=== PATIENT | female | born 1950 | race Caucasian/White ===

== ENCOUNTER 2020-04-15 12:50 | Outpatient (REF) | payer MEDICARE, OTHER, SELFPAY ==
--- NOTE | 2020-04-15 12:56 | MM_ITS ---
EXAMINATION: MM SCREENING DIGITAL BREAST TOMOSYNTHESIS, BILATERAL CLINICAL INFORMATION: Screening. Asymptomatic. The lifetime risk of breast cancer based on the Tyrer-Cuzick Model is 10%. COMPARISON: Mammography: 02/03/2019, 01/01/2018 TECHNIQUE: Digital breast tomosynthesis is performed in both the craniocaudal and mediolateral oblique views along with computer-aided detection (CAD). Synthesized 2D images are generated from the tomosynthesis. FINDINGS: There are scattered areas of fibroglandular density (ACR BI-RADS breast composition Category b). There are no significant masses, abnormal calcifications, or other abnormalities. No developing density. The axilla and skin contours are unremarkable. MM/MM tomosynthesis screening BI IMPRESSION: No mammographic evidence of malignancy. ASSESSMENT: BI-RADS 1: Negative RECOMMENDATION: Routine annual mammography screening. This patient's information was entered into a reminder system with a target due date for their next mammogram.
== END 2020-04-15 12:51 | disposition home or self-care (01) ==
LOC: HO.MAMMO 12:50
PROVIDERS: Visit Provider Internal Medicine
DX: Z12.31 Encounter for screening mammogram for malignant neoplasm of breast (principal)
CPT/HCPCS: 77063; 77067

== ENCOUNTER 2020-04-23 09:08 | Outpatient (REF) | payer MEDICARE, OTHER, SELFPAY ==
--- NOTE | 2020-04-23 09:16 | XR_ITS ---
EXAMINATION: XR THORACOLUMBAR SPINE CLINICAL INFORMATION: Back pain. COMPARISON: Chest radiographs dated 12/15/2018. TECHNIQUE: 2 views of the thoracic spine were obtained. FINDINGS: Moderate to severe thoracic dextro scoliosis is seen with apex at T8-T9. Mild to moderate multilevel degenerative changes are seen. There is no acute fracture. The adjacent posterior ribs are intact. There is a moderate-sized hiatal hernia. XR/XR thoracic spine 2V IMPRESSION: 1. Moderate to severe thoracic dextro scoliosis and mild to moderate multilevel degenerative changes without acute abnormality. 2. Moderate hiatal hernia.
--- NOTE | 2020-04-23 09:16 | XR_ITS ---
EXAMINATION: XR CERVICAL SPINE CLINICAL INFORMATION: Neck pain. COMPARISON: Thoracic spine radiographs performed today. TECHNIQUE: 3 views of the cervical spine were obtained. FINDINGS: Mild compensatory cervical levoscoliosis is seen. There is normal cervical lordosis and spinal alignment. Moderate degenerative disc disease is seen at C6-C7 with disc space narrowing and marginal osteophyte formation. There is no acute fracture. Mild to moderate multilevel bilateral facet arthropathy is seen most pronounced at C3-C4 and C5-C6. There is no acute fracture. The prevertebral soft tissues are unremarkable. XR/XR cervical spine 2V IMPRESSION: 1. Mild compensatory cervical levoscoliosis scoliosis. 2. C6-C7 moderate degenerative disc disease and multilevel facet arthropathy.
== END 2020-04-23 09:09 | disposition home or self-care (01) ==
LOC: HO.XRAY 09:08
PROVIDERS: PCP Internal Medicine; Visit Provider Internal Medicine
DX: M54.9 Dorsalgia, unspecified (principal); G25.81 Restless legs syndrome; E66.9 Obesity, unspecified; Z68.39 Body mass index [BMI] 39.0-39.9, adult
CPT/HCPCS: 72040; 72070

== ENCOUNTER 2021-01-16 09:44 | Outpatient (REF) | payer MEDICARE, OTHER, SELFPAY ==
--- NOTE | ~2021-01-16 | XR_ITS ---
EXAMINATION: XR LUMBOSACRAL SPINE WITH OBLIQUES CLINICAL INFORMATION: Evaluate for response to localize cysts and fracture COMPARISON: Previous x-ray May 2017 and lumbar spine MRI November 2007 TECHNIQUE: AP, both oblique, and lateral views of the lumbar spine. Lateral view of the lumbosacral junction. FINDINGS: There is a severe lumbar scoliosis convex to the left. This is unchanged. No fracture or dislocation is seen. There is evidence of degenerative disc disease greatest at L2-L3 and L5-S1. There is lower lumbar spine facet arthritis. No pars defect is seen. The sacroiliac joints are normal-appearing. XR/XR lumbar spine 4V min IMPRESSION: Scoliosis, degenerative disc disease and facet arthritis. No fracture or pars defect is seen.
--- NOTE | ~2021-01-16 | XR_ITS ---
EXAMINATION: XR BILATERAL HIPS WITH AP PELVIS CLINICAL INFORMATION: Pain. Evaluate for arthritis or AVN or fracture. COMPARISON: None TECHNIQUE: AP view of the pelvis and 2 views of each hip were obtained. FINDINGS: Bone alignment is normal. No fracture or dislocation is seen. There is mild arthritis at both hip joints with joint space narrowing and osteophyte formation. No evidence of AVN of the femoral head is seen. Bones of the pelvis are normal. The sacroiliac joints are normal. Soft tissues are normal. XR/XR hip BI w PEL1V IMPRESSION: Bilateral hip arthritis. Otherwise unremarkable exam.
== END 2021-01-16 09:45 | disposition home or self-care (01) ==
LOC: HO.XRAY 09:44
PROVIDERS: PCP Internal Medicine; Visit Provider Physical Medicine & Rehabilitation
DX: M46.1 Sacroiliitis, not elsewhere classified (principal)
CPT/HCPCS: 72110; 73521

== ENCOUNTER 2021-04-22 10:52 | Outpatient (REF) | payer MEDICARE, OTHER, SELFPAY ==
--- NOTE | ~2021-04-22 | MM_ITS ---
EXAMINATION: MM SCREENING DIGITAL BREAST TOMOSYNTHESIS, BILATERAL CLINICAL INFORMATION: Screening. Asymptomatic. The lifetime risk of breast cancer based on the Tyrer-Cuzick Model is 5%. COMPARISON: Mammography: 04/15/2020, 02/03/2019, 01/01/2018 TECHNIQUE: Digital breast tomosynthesis is performed in both the craniocaudal and mediolateral oblique views along with computer-aided detection (CAD). Synthesized 2D images are generated from the tomosynthesis. FINDINGS: There are scattered areas of fibroglandular density (ACR BI-RADS breast composition Category b). There are no significant masses, abnormal calcifications, or other abnormalities. There is small smooth circumscribed nodule again noted mid upper outer right breast. The axilla and skin contours are unremarkable. No significant changes. MM/MM tomosynthesis screening BI IMPRESSION: No mammographic evidence of malignancy. ASSESSMENT: BI-RADS 2: Benign RECOMMENDATION: Routine annual mammography screening. This patient's information was entered into a reminder system with a target due date for their next mammogram.
== END 2021-04-22 10:53 | disposition home or self-care (01) ==
LOC: HO.MAMMO 10:52
PROVIDERS: Visit Provider Internal Medicine
DX: Z12.31 Encounter for screening mammogram for malignant neoplasm of breast (principal)
CPT/HCPCS: 77063; 77067

== ENCOUNTER 2021-05-01 09:03 | Outpatient (REF) | payer MEDICARE, OTHER, SELFPAY ==
--- NOTE | ~2021-05-01 | MM_ITS ---
EXAMINATION: BONE DENSITOMETRY CLINICAL INDICATION: Asymptomatic menopausal state. COMPARISON: Baseline BD dated 08/30/2008. TECHNIQUE: Using a [employer] DXA System (software version: 13.1) manufactured by [employer], dual-energy x-ray absorptiometry was performed of the lumbar spine and left hip. The images are of good technical quality. Summary results are attached. FINDINGS: AP SPINE L1-L2 (excluding L3 and L4): The data of L1-L4 has been changed to exclude the L3 and L4 vertebral bodies, because degenerative changes at these levels may cause overestimation of lumbar spine density. Levocurvature lumbar spine may also cause over estimation of the lumbar bone mineral density. Current: BMD 1.009 g/cm2, Z-score -0.8, T-score -1.3, osteopenia, 3.4% decrease from baseline (<5% change is not significant). Baseline: BMD 1.045 g/cm2. LEFT FEMUR, NECK: Current: BMD 0.716 g/cm2, Z-score -1.3, T-score -2.3, osteopenia. Baseline: BMD 0.894 g/cm2. LEFT FEMUR, TOTAL: Current: BMD 0.730 g/cm2, Z-score -1.5, T-score -2.2, osteopenia, 22.0% decrease from baseline (<5% change is not significant). Baseline: BMD 0.936 g/cm2. IDENTIFIED RISK FACTORS: Height loss, low calcium intake, menopause. HISTORY OF FRACTURE: None listed. MEDICATIONS: None listed. MM/XR DEXA axial skeleton IMPRESSION: 1. DIAGNOSIS: Osteopenia based on the lowest T-score value of -2.3 in the femoral neck applying World Health Organization criteria. 2. 10-YEAR FRACTURE RISK PREDICTION, FRAX: Major osteoporotic fracture (clinical spine, forearm, hip or shoulder) 11.9%. Hip fracture 2.7%. 3. Treatment Recommendations: NOF guidelines recommend consideration for treatment in postmenopausal women and men age 50 and older presenting with the following: -A hip or vertebral (clinical or morphometric) fracture. -T-score less than or equal to -2.5 at the femoral neck or spine after appropriate evaluation to exclude secondary causes. -Low bone mass at the hip or spine and a 10-year fracture probability by FRAX of greater than or equal to 3% for hip fracture or greater than or equal to 20% for major osteoporotic fracture based on the [place] adapted WHO algorithm. 4. Other Recommendations: All treatment decisions require clinical judgment and consideration of individual patient factors, including patient preferences, comorbidities, previous drug use, risk factors not captured in the FRAX model (e.g. frailty, falls, vitamin D deficiency, increased bone turnover, interval significant decline in bone density) and possible under or overestimation of fracture risk by FRAX. Additional medical evaluation for secondary cause of low bone mineral density may be appropriate. FUTURE SCAN RECOMMENDATION: People with diagnosed cases of osteoporosis or at high risk for fracture should have regular bone mineral density tests. For patients eligible for Medicare, routine testing is allowed once every 2 years. The testing frequency can be increased to one year for patients who have rapidly progressing disease, those who are receiving or discontinuing medical therapy to restore bone mass, or have additional risk factors.
== END 2021-05-01 09:04 | disposition home or self-care (01) ==
LOC: HO.MAMMO 09:03
PROVIDERS: Visit Provider Nurse Practitioner Family
DX: Z13.820 Encounter for screening for osteoporosis (principal); M85.80 Other specified disorders of bone density and structure, unspecified site; Z78.0 Asymptomatic menopausal state
CPT/HCPCS: 77080

== ENCOUNTER 2021-11-05 10:48 | Outpatient (REF) | payer MEDICARE, OTHER, SELFPAY ==
[2021-11-05 10:59] LABS: MANUAL DIFF FLAG NO
[2021-11-05 11:08] LABS: Basophils Absolute Auto 0.1 X10*3/uL (0.0-0.2); Basophils Percent Auto 0.9 % (0-2); Eosinophils Absolute Auto 0.2 X10*3/uL (0.0-0.4); Eosinophils Percent Auto 2.1 % (0-4); Hematocrit 38.1 % (37.0-47.0); Hemoglobin 12.2 g/dl (12.0-16.0); Imm Gran Abs Auto 0.04 X10*3/uL (0.00-0.03); Imm Gran Pct Auto 0.6 % (0.0-0.4); Lymphocytes Absolute Auto 2.3 X10*3/uL (1.2-4.9); Lymphocytes Percent Auto 32.3 % (20-40); Mean Corpuscular Hemoglobin 28.3 pg (27.0-33.0); Mean Corpuscular Volume 88.4 fL (80.0-98.0); Mean Platelet Volume 9.4 fL (9.4-12.3); Monocytes Absolute Auto 0.5 X10*3/uL (0.1-1.2); Monocytes Percent Auto 7.2 % (2-11); Neutrophils Percent Auto 56.9 % (45-73); Platelet Count 337 X10*3/uL (160-400); Red Blood Count 4.31 X10*6/uL (4.20-5.50); Red Cell Distribution Width 14.1 % (11.0-16.0)
[2021-11-05 11:39] LABS: Anion Gap 10 (12-20); Blood Urea Nitrogen 11 mg/dL (9-16); Carbon Dioxide 26 mmol/L (22-29); Chloride 109 mmol/L (96-108); Potassium 4.2 mmol/L (3.3-5.1); Sodium 141 mmol/L (135-145)
[2021-11-05 11:40] LABS: Alanine Aminotransferase 22 U/L (0-31); Albumin Level 3.9 g/dL (3.5-5.0); Alkaline Phosphatase 125 U/L (39-117); Aspartate Amino Transferase 22 U/L (5-31); Bilirubin Total 0.7 mg/dL (0.0-1.0); Cholesterol 184 mg/dL; Estimated Glomerular Filt Rate > 60; Glucose Random 98 mg/dL (60-115); HDL Cholesterol 53 mg/dL; LDL Cholesterol Calculated 109 mg/dl; Total Protein 6.1 g/dL (6.5-8.0); Triglycerides 114 mg/dL
[2021-11-05 12:02] LABS: Folate 10.3 ng/mL (> or = 4.0); Free T4 (Free Thyroxine) 1.06 ng/dL (0.71-1.85); Thyroid Stimulating Hormone 1.67 uIU/mL (0.32-4.0); Vitamin B12 304 pg/mL (200-900); Vitamin D 25-OH Total 33.5 ng/mL (>30)
[2021-11-05 12:48] LABS: Estimated Average Glucose 111 mg/dL; Hemoglobin A1c % 5.5 %
== END 2021-11-05 10:49 | disposition home or self-care (01) ==
LOC: HO.LAB 10:48
PROVIDERS: PCP Internal Medicine; Visit Provider Internal Medicine
DX: I10 Essential (primary) hypertension (principal); E78.00 Pure hypercholesterolemia, unspecified
CPT/HCPCS: 36415; 80053; 80061; 82306; 82607; 82746; 83036; 84439; 84443; 85025

== ENCOUNTER 2022-04-24 09:45 | Outpatient (REF) | payer MEDICARE, OTHER, SELFPAY ==
--- NOTE | ~2022-04-24 | MM_ITS ---
EXAMINATION: MM SCREENING DIGITAL BREAST TOMOSYNTHESIS, BILATERAL CLINICAL INFORMATION: Screening. Asymptomatic. The lifetime risk of breast cancer based on the Tyrer-Cuzick Model is 4%. COMPARISON: Mammography: 04/22/2021, 04/15/2020, 02/03/2019 TECHNIQUE: Digital breast tomosynthesis is performed in both the craniocaudal and mediolateral oblique views along with computer-aided detection (CAD). Synthesized 2D images are generated from the tomosynthesis. FINDINGS: There are scattered areas of fibroglandular density (ACR BI-RADS breast composition Category b). There are no significant masses, abnormal calcifications, or other abnormalities. Parenchymal pattern is similar to prior studies. Again, small smooth circumscribed nodule is present right breast mid upper outer quadrant. The axilla and skin contours are unremarkable. No significant changes from prior exams. MM/MM tomosynthesis screening BI IMPRESSION: No mammographic evidence of malignancy. ASSESSMENT: BI-RADS 2: Benign RECOMMENDATION: Routine annual mammography screening. This patient's information was entered into a reminder system with a target due date for their next mammogram.
== END 2022-04-24 09:46 | disposition home or self-care (01) ==
LOC: HO.MAMMO 09:45
PROVIDERS: PCP Internal Medicine; Visit Provider Internal Medicine
DX: Z12.31 Encounter for screening mammogram for malignant neoplasm of breast (principal)
CPT/HCPCS: 77063; 77067

== ENCOUNTER → 2022-08-14 12:28 | Outpatient (BNVA) | payer MEDICARE, OTHER, SELFPAY | PROVIDERS: PCP Internal Medicine; Visit Provider Nurse Practitioner | DX: Z12.11 Encounter for screening for malignant neoplasm of colon (principal) | CPT/HCPCS: 99202 ==

== ENCOUNTER 2022-10-05 11:02 | Outpatient (REF) | payer MEDICARE, OTHER, SELFPAY ==
--- NOTE | ~2022-10-05 | XR_ITS ---
EXAMINATION: XR LUMBOSACRAL SPINE CLINICAL INFORMATION: Degenerative disc disease COMPARISON: Previous x-ray December 2020 TECHNIQUE: Three views of the lumbosacral spine. FINDINGS: There is severe curvature of the lumbar spine to the left. Bone alignment is otherwise normal. No fracture or dislocation. There is degenerative disc disease at L2-L3 and L3-L4. There is multilevel facet arthritis. There is atherosclerotic disease. There are degenerative changes of the left hip joint. XR/XR lumbar spine 2-3V IMPRESSION: Severe scoliosis. Multilevel degenerative changes.
== END 2022-10-05 11:03 | disposition home or self-care (01) ==
LOC: HO.XRAY 11:02
PROVIDERS: PCP Internal Medicine; Visit Provider Internal Medicine
DX: M51.36 Other intervertebral disc degeneration, lumbar region (principal)
CPT/HCPCS: 72100

== ENCOUNTER 2022-10-28 07:11 | Outpatient (REF) | payer MEDICARE, OTHER, SELFPAY ==
--- NOTE | ~2022-10-28 | XR_ITS ---
EXAMINATION: XR HIP, RIGHT CLINICAL INFORMATION: Chronic right hip pain COMPARISON: 01/16/2021 TECHNIQUE: Two views of the right hip. AP pelvis FINDINGS: Marked progression of right hip osteoarthritis with superolateral femoral head flattening, cysts with sclerosis, and osteophyte formation of the superior acetabulum. This may be the sequela of avascular necrosis with subchondral collapse. Relatively mild left hip osteoarthritis which does not appear significantly changed. XR/XR hip RT w PEL1V IMPRESSION: Marked progression of the right hip osteoarthritis, possibly the sequela of avascular necrosis with subchondral collapse.
== END 2022-10-28 07:12 | disposition home or self-care (01) ==
LOC: HO.LAB 07:11
PROVIDERS: PCP Internal Medicine; Visit Provider Internal Medicine
DX: E78.00 Pure hypercholesterolemia, unspecified (principal); M70.61 Trochanteric bursitis, right hip
CPT/HCPCS: 36415; 73502; 82607; 82746; 85025

== ENCOUNTER 2022-11-04 09:34 | Outpatient (REF) | payer MEDICARE, OTHER, SELFPAY ==
[2022-11-04 11:40] LABS: Alanine Aminotransferase 49 U/L (0-31); Albumin Level 3.9 g/dL (3.5-5.0); Alkaline Phosphatase 128 U/L (39-117); Anion Gap 15 (12-20); Aspartate Amino Transferase 50 U/L (5-31); Bilirubin Total 0.7 mg/dL (0.0-1.0); Blood Urea Nitrogen 10 mg/dL (9-16); Calcium 10.2 mg/dL (8.4-10.2); Carbon Dioxide 26 mmol/L (22-29); Chloride 106 mmol/L (96-108); Cholesterol 173 mg/dL; Estimated Glomerular Filt Rate > 60; Glucose Random 96 mg/dL (60-115); HDL Cholesterol 54 mg/dL; LDL Cholesterol Calculated 95 mg/dl; Sodium 143 mmol/L (135-145); Total Protein 6.6 g/dL (6.5-8.0); Triglycerides 122 mg/dL
[2022-11-04 11:44] LABS: Free T4 (Free Thyroxine) 1.04 ng/dL (0.71-1.85); Thyroid Stimulating Hormone 1.62 uIU/mL (0.32-4.0); Vitamin D 25-OH Total 41.7 ng/mL (>30)
== END 2022-11-04 09:35 | disposition home or self-care (01) ==
LOC: HO.LAB 09:34
PROVIDERS: PCP Internal Medicine; Visit Provider Internal Medicine
DX: E78.00 Pure hypercholesterolemia, unspecified (principal); E55.9 Vitamin D deficiency, unspecified; M85.80 Other specified disorders of bone density and structure, unspecified site
CPT/HCPCS: 36415; 80053; 80061; 82306; 84439; 84443

== ENCOUNTER 2022-11-13 10:09 | Outpatient (REF) | payer MEDICARE, OTHER, SELFPAY ==
--- NOTE | ~2022-11-13 | US_ITS ---
EXAMINATION: US ABDOMEN COMPLETE CLINICAL INFORMATION: Other specified abnormal findings of blood chemistry. COMPARISON: Ultrasound abdomen 12/26/2014. TECHNIQUE: Real-time imaging of the abdominal viscera. Technically difficult study secondary to bowel gas and body habitus. FINDINGS: PANCREAS: Limited visualization of pancreatic tail and head. Imaged portion of pancreatic body is unremarkable. ABDOMINAL AORTA: Limited visualization. Imaged portion of mid abdominal aorta is nonaneurysmal. INFERIOR VENA CAVA: Visualized portions are normal. LIVER: Heterogeneous hepatic echotexture, possibly reflecting hepatocellular disease. Borderline mild increase in echogenicity of the liver is characteristic of primary hepatocellular disease, possibly due to hepatic steatosis and further limits visualization. Previous exam of 2014 reported increase in hepatic echotexture characteristic of fatty infiltration or hepatocellular disease. Limited visualization. GALLBLADDER: 1.1 x 0.5 x 0.8 cm gallstone. No gallbladder wall thickening or pericholecystic fluid. COMMON BILE DUCT: Normal in caliber measuring 0.3 cm in diameter. RIGHT KIDNEY: No hydronephrosis. No renal calculi. Limited visualization. The kidney measures 9.3 cm in maximum dimension. LEFT KIDNEY: No hydronephrosis. No renal calculi. Limited visualization. The kidney measures 9.5 cm in maximum dimension. SPLEEN: The spleen measures 13.3 cm in maximum dimension. Borderline enlarged pancreas. FREE FLUID: None. US/US abdomen complete IMPRESSION: 1. Heterogeneous hepatic echotexture, possibly reflecting hepatocellular disease. Borderline mild increase in echogenicity of the liver is characteristic of primary hepatocellular disease, possibly due to hepatic steatosis and further limits visualization. Previous exam of 2014 reported increased hepatic echotexture characteristic of fatty infiltration or hepatocellular disease. 2. Cholelithiasis. 3. Spleen measures 13.3 cm. Borderline enlarged. Limited visualization. 4. CT scan could be considered for further evaluation.
== END 2022-11-13 10:10 | disposition home or self-care (01) ==
LOC: HO.US 10:09
PROVIDERS: PCP Internal Medicine; Visit Provider Internal Medicine
DX: R79.89 Other specified abnormal findings of blood chemistry (principal)
CPT/HCPCS: 76700

== ENCOUNTER 2022-11-26 14:00 | Outpatient (RCR) | payer MEDICARE, OTHER, SELFPAY ==
--- NOTE | 2022-10-21 14:00 | MHC.PT.EP ---
[facility] [place] Office [place] Office [place] Office [address] Williams Delgadillo [address] [phone] F: [phone] F: [phone] F: [phone] F: [phone] Physical Therapy Plan of Care Date of Evaluation: Date of Surgery: N/A Diagnosis: Other intervertebral disc degeneration, lumbar region Lumbar degenerative disc disease Assessment: Pt is a pleasant 72yo F who presents to PT with back pain. She presents to PT with current impairments in pain, decreased lumbar ROM, decreased hip ROM, decreased hip/glute strength, decreased core stabilization, soft tissue restrictions, impaired posture and impaired gait. She is limited functionally by prolonged sitting, standing/weight bearing, prolonged standing (>1 minute), walking, stair navigation (descending is worse), sleeping, and bending. She is an excellent candidate for skilled PT in order to address current impairments to facilitate return to PLOF. She is recommended to be seen 2x/week for 4 weeks and will be reassessed at that time. 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 Manual therapy to restore motion and function. Therapeutic exercise to improve strength and flexibility. Neuromuscular re-education for posture and balance. Therapeutic activities to return to functional activities of daily living. Electronically signed by: Nicole Clement, PT, DPT Please sign and return to therapist. Thank you for your referral.
--- NOTE | 2022-12-11 14:36 | MHC.PT.DC ---
[facility] [place] Office [place] Office [place] Office [address] Williams Delgadillo [address] [phone] F: [phone] F: [phone] F: [phone] F: [phone] Physical Therapy Discharge Report Diagnosis: Other intervertebral disc degeneration, lumbar region Lumbar degenerative disc disease Date of Surgery: N/A Date of Evaluation: 10/21/22 Date of Discharge: 12/11/22 Treatments to Date: 9 Cancellations to Date: No Shows to Date: Discharge Status: Independent with HEP Recommend MD Follow-up Discharge Summary: Pt was seen for skilled PT from 10/21/22-11/26/22. Her last attended and scheduled appointment was 11/26/22. She had achieved some pain relief with skilled PT however she continued to have pain and impaired posture due to severe scolisosis, OA, and R hip OA. She reports she had lumbar MRI scheduled and an appointment scheduled with spine surgeon. She was recommended to follow up with scheduled providers. Pt is being D/C from skilled PT at this time. Electronically signed by: Nicole Clement, PT, DPT Please sign and return to therapist. Thank you for your referral.
== END 2022-12-11 14:35 | disposition home or self-care (01) ==
LOC: HO.PT 14:00
PROVIDERS: PCP Internal Medicine; Visit Provider Internal Medicine
DX: M51.36 Other intervertebral disc degeneration, lumbar region (principal)
CPT/HCPCS: 97014; 97110; 97140; 97162

== ENCOUNTER 2022-12-02 09:16 | Outpatient (REF) | payer MEDICARE, OTHER, SELFPAY ==
--- NOTE | ~2022-12-02 | MR_ITS ---
EXAMINATION: MR LUMBAR SPINE WITHOUT CONTRAST CLINICAL INFORMATION: Other intervertebral disc degeneration, lumbar region. COMPARISON: Lumbar spine MRI 11/30/2007. TECHNIQUE: MRI of the lumbar spine was obtained using routine sequences without contrast. FINDINGS: There is progressive severe levoscoliotic curvature centered at the L1-L2 level. There is asymmetric right-sided disc height loss at L2-L3 and L3-L4. No bone marrow edema is seen. The distal spinal cord appears normal. The conus medullaris terminates normally at the L1-L2 level. There is fatty atrophy of the posterior paraspinal musculature. The extraspinal soft tissues are otherwise unremarkable. SPINAL LEVELS: L1-L2: Mild disc bulging with asymmetric right facet arthropathy. No spinal canal or neural foraminal stenosis. L2-L3: Disc bulging with facet arthropathy. No spinal canal stenosis. Minimal narrowing of the right subarticular zone. No significant neural foraminal stenosis. L3-L4: Disc bulging with ligamentum flavum infolding and severe right more than left facet arthropathy resulting in severe spinal canal stenosis with compression of the thecal sac. Severe right neural foraminal stenosis with compression of the exiting right L3 nerve root. Bulging disc also compresses the extraforaminal left L3 nerve root. Findings have progressed. L4-L5: Disc bulging with moderate to severe facet arthropathy resulting in left subarticular stenosis with compression of the traversing left L5 nerve root, new from prior. No significant spinal canal stenosis. Moderate left neural foraminal stenosis. L5-S1: Disc bulging with moderate facet arthropathy. Moderate left neural foraminal stenosis with mild compression of the exiting left L5 nerve root, prior. MR/MR lumbar spine wo con IMPRESSION: 1. Progressive severe levoscoliotic curvature centered at the L1-L2 level. 2. At L3-L4 there is progressive severe spinal canal stenosis with compression of the thecal sac and compression of the exiting right L3 nerve root. Bulging disc also compresses the extraforaminal left L3 nerve root. 3. At L4-L5 there is new compression of the traversing left L5 nerve root and moderate left neural foraminal stenosis. 4. At L5-S1 there is moderate left neural foraminal stenosis with mild compression of the exiting left L5 nerve root.
== END 2022-12-02 09:17 | disposition home or self-care (01) ==
LOC: HO.MRI 09:16
PROVIDERS: PCP Internal Medicine; Visit Provider Internal Medicine
DX: M51.36 Other intervertebral disc degeneration, lumbar region (principal)
CPT/HCPCS: 72148

== ENCOUNTER 2022-12-16 10:16 | Outpatient (REF) | payer MEDICARE, OTHER, SELFPAY ==
[2022-12-16 12:03] LABS: Alanine Aminotransferase 9 U/L (0-31); Alkaline Phosphatase 105 U/L (39-117); Aspartate Amino Transferase 17 U/L (5-31); Bilirubin Direct 0.3 mg/dL (0.0-0.5); Bilirubin Total 0.6 mg/dL (0.0-1.0); Iron 42 mcg/dL (30-160); Percent Iron Saturation 18 % (15-50); Total Iron Binding Capacity 240 mcg/dL (228-428); Total Protein 6.7 g/dL (6.5-8.0); Unsaturated Iron Binding 198 ug/dL
[2022-12-16 12:19] LABS: HBS Num1 0.26 mIU/mL (0-7.99); HBc Num1 0.09 S/CO (0.00-0.79); HBsAGNum1 0.36 S/CO (0.00-0.99); Hepatitis B Core Antibody Nonreactive (Nonreactive); Hepatitis B Surface Antigen Negative (Negative); ~HepC Num1 0.07 S/CO (0.00-0.79); ~Hepatitis B Surface Antibody NONREACTIVE (Nonreactive); ~Hepatitis C Antibody Nonreactive (Nonreactive)
[2022-12-16 12:28] LABS: Ferritin 98 ng/mL (10-250)
[2022-12-22 09:09] LABS: Prot Elec - Albumin 3.7 g/dL (3.8-4.8); Prot Elec - Alpha1 0.4 g/dL (0.2-0.3); Prot Elec - Alpha2 0.7 g/dL (0.5-0.9); Prot Elec - Beta 1 0.4 g/dL (0.4-0.6); Prot Elec - Beta 2 0.4 g/dL (0.2-0.5); Prot Elec - Gamma 0.8 g/dL (0.8-1.7); Prot Elec - Total Protein 6.3 g/dL (6.1-8.1)
== END 2022-12-16 10:17 | disposition home or self-care (01) ==
LOC: HO.LAB 10:16
PROVIDERS: PCP Internal Medicine; Visit Provider Internal Medicine
DX: R79.89 Other specified abnormal findings of blood chemistry (principal)
CPT/HCPCS: 36415; 80076; 82728; 83540; 84165; 86704; 86706; 86803; 87340

== ENCOUNTER 2022-12-18 09:57 | Outpatient (AMB) | payer MEDICARE, OTHER, SELFPAY ==
--- NOTE | 2022-12-18 10:23 | HO.SPINEOV ---
Intake Intake Visit Reasons: disc degeneration Intake Note: Ms. Wolfe is here today c/o low back pain. [place] [facility] [place] Computer Network Support Specialist Required: No Allergies clarithromycin Allergy (Unknown, Verified 10/22/22 09:42) nausea Assessment & Plan Assessment & Plan (1) Lumbar degenerative disc disease: Comment: May 2021, November 2022 Progressive severe levoscoliotic curvature centered at the L1-L2 level. 2. At L3-L4 there is progressive severe spinal canal stenosis with compression of the thecal sac and compression of the exiting right L3 nerve root. Bulging disc also compresses the extraforaminal left L3 nerve root. 3. At L4-L5 there is new compression of the traversing left L5 nerve root and moderate left neural foraminal stenosis. 4. At L5-S1 there is moderate left neural foraminal stenosis with mild compression of the exiting left L5 nerve root. Code(s): M51.36 - Other intervertebral disc degeneration, lumbar region Sandip Villa is a 72-year-old female who is self-referred to our office. She presents with a chief complaint of chronic low back pain which is have the past 20+ years. She states that she has concurrent right thigh/groin pain which she believes may be correlated to her right hip which needs to be replaced. She is being followed by [facility] for this issue. She reports that she was diagnosed with scoliosis at 12 years old and never used utilized a brace or other forms of scoliotic correction. She reports that she has tried utilizing tramadol, Advil, Celebrex, Tylenol, ice, rest, heat, Salonpas, cortisone injections, and physical therapy to help alleviate her symptoms without avail. She reports that standing upright and walking for prolonged periods of time exacerbates her pain. She states that she is here more so for her low back pain than her pain in the hip/right groin. She recently had an MRI completed here at [place] on 12/02/2022. PMH: Osteopenia, high blood pressure, hyperlipidemia, GERD, scoliosis, osteoarthritis. Social hx: Patient does not smoke, reports no substance use. Medications: Atenolol, simvastatin, losartan, gabapentin, celecoxib. Allergies: NKDA. Physical exam: Sensation: Grossly intact CN: II-XII grossly intact. Strength Testing Upper Extremities: - Deltoid 5/5 right 5/5 left - Biceps 5/5 right 5/5 left - Triceps 5/5 right 5/5 left - Wrist Ext 5/5 right 5/5 left - Wrist Flex 5/5 right 5/5 left - Hand wallpaper inspector 5/5 right 5/5 left - Interossei 5/5 right 5/5 left Strength Testing Lower Extremities: - Hip flexion 4/5 right 5/5 left - Knee extension 4/5 right 5/5 left - Dorsiflexion 5/5 right 5/5 left - Plantar flex 5/5 right 5/5 left - EHL 5/5 right 5/5 left Pain limited due to weakness Reflexes: - Biceps (C5/C6) Right - 2+ Left - 2+ - Triceps (C7) Right - 2+ Left - 2+ - Patellar (L2-L4) Right - 1+ Left - 2+ - Achilles (S1) Right - 1+ Left - 2+ - Plantar (BELLOWS TESTER) Right - 1+ Left - 2+ (-) Babinski (-) Castillo?s sign (-) Clonus Imaging review: MRI of lumbar spine shows severe scoliosis centered at L1/L2. L4-S1 moderate L sided foraminal stenosis. Severe central canal stenosis at L3-4 with a bulging disc compressing the right and left L3 nerve root. Impression: The patient is a 72-year-old female who comes in with a chief complaint of longstanding chronic low back pain. She also endorses some nonspecific right thigh symptoms that she thinks may be correlated with her need for a right hip replacement. This is a patient who has a problem that is multifaceted; she has severe scoliosis, severe spinal stenosis, and significant disc compression issues at the levels of L3-4. She has had a history of some kind of injections at [facility] the past. We would like to obtain records from [facility] and [facility] of all the injections she has had done as there were some reports of injections performed in [place] as well which they will hopefully have record of. In the meantime would also like the patient to have a CT scan completed without contrast to get a better look at her bone quality and assess the level of fusion that is already taking place in the lumbar spine. We additionally would like the patient to complete flexion extension x-rays to check for any further instability when the patient is standing. She may be seen back in the office for follow-up with Dr. Chau to discuss surgical possibilities. MATTHEW Montemayor and I had discussed the possibility for and L3-4 fusion to correct her scoliosis, provide back pain relief, and address her bulging disc. The total time spent with this visit with this patient was 60 minutes reviewing history, physical exam, MRI imaging review, and implementation of treatment plan or further diagnostic testing. Mo Chau MD,PhD [facility] Orders: Orders XR lumbar spine 4V min Today M51.36 - Other intervertebral disc degeneration, lumbar region CT lumbar spine wo IV con Today M51.36 - Other intervertebral disc degeneration, lumbar region Coding Level of Care Code New Pt Level 5 (44413) Diagnoses Lumbar degenerative disc disease M51.36
== END 2022-12-18 11:22 | disposition home or self-care (01) ==
PROVIDERS: PCP Internal Medicine; Visit Provider Physician Assistant
DX: M51.36 Other intervertebral disc degeneration, lumbar region (principal)
CPT/HCPCS: 99205

== ENCOUNTER 2022-12-18 09:57 | Outpatient (REF) | payer MEDICARE, OTHER, SELFPAY ==
--- NOTE | ~2022-12-18 | XR_ITS ---
EXAMINATION: XR LUMBOSACRAL SPINE WITH OBLIQUES CLINICAL INFORMATION: Disc degeneration COMPARISON: Radiographs 10/05/2022 TECHNIQUE: AP, lateral, and lateral flexion and extension views of the lumbar spine FINDINGS: Marked levoconvex scoliosis. Multilevel degenerative disc disease most severe at L2-L3 and L3-L4 which is the apex of the curvature deformity. No acute osseous abnormality. No abnormal motion on the lateral flexion and extension. XR/XR lumbar spine 4V min IMPRESSION: Marked levoconvex scoliosis with multilevel degenerative disc disease. No acute osseous abnormality.
== END 2022-12-18 09:58 | disposition home or self-care (01) ==
LOC: HO.HOSX 09:57
PROVIDERS: PCP Internal Medicine; Visit Provider Physician Assistant
DX: M51.36 Other intervertebral disc degeneration, lumbar region (principal)
CPT/HCPCS: 72110; 99202

== ENCOUNTER 2022-12-25 10:17 | Outpatient (REF) | payer MEDICARE, OTHER, SELFPAY ==
--- NOTE | ~2022-12-25 | CT_ITS ---
EXAMINATION: CT LUMBAR SPINE WITHOUT CONTRAST CLINICAL INFORMATION: Degenerative disc disease COMPARISON: MRI lumbar spine 12/18/2022 TECHNIQUE: A multidetector CT acquisition of the lumbar spine is obtained without contrast. This CT examination was performed using dose optimization techniques as appropriate, variously including the following: *Automated exposure control *Adjustment of mA and/or kV according to patient size (this includes techniques or standardized protocols for targeted exams where dose is matched to indication/reason for exam; i.e. extremities or head) *Use of iterative reconstruction technique DLP: 837 mGy-cm FINDINGS: Normal lumbar segmentation with 5 nonrib-bearing lumbar-type vertebral bodies. The left L5 transverse process pseudoarticulates with the sacrum. Redemonstration of marked leftward curvature of the lumbar spine centered at L2-L3. There is trace right lateral listhesis of L1 on L2 and left lateral listhesis of L3 on L4. No significant spondylolisthesis. Vertebral body heights are maintained. There is no suspicious osseous lesion. Multilevel disc space height loss with asymmetric loss of the right disc space at L3-L4 with vacuum disc phenomenon. Degenerative canal and neural foraminal stenosis is better assessed on recent MRI of the lumbar spine from 12/18/2022 and not significantly progressed within the limitations of CT. There is mild fatty atrophy of the paraspinal musculature. Cholelithiasis is noted. No other significant abnormality of the visualized intra-abdominal structures. There is moderate aortoiliac calcified atherosclerotic disease. The abdominal aorta is of normal contour and caliber. CT/CT lumbar spine wo IV con IMPRESSION: 1. Redemonstration of marked leftward curvature of the lumbar spine centered at L2-L3. 2. Acute osseous abnormality of the lumbar spine. Multilevel lumbar spondylosis is better assessed on recent MRI of the lumbar spine from 12/18/2022 and not significantly progressed within the limitations of CT. 3. Cholelithiasis
== END 2022-12-25 10:18 | disposition home or self-care (01) ==
LOC: HO.CT 10:17
PROVIDERS: PCP Internal Medicine; Visit Provider Physician Assistant
DX: M51.36 Other intervertebral disc degeneration, lumbar region (principal)
CPT/HCPCS: 72131

== ENCOUNTER 2023-01-13 14:56 | Outpatient (AMB) | payer MEDICARE, OTHER, SELFPAY ==
--- NOTE | 2023-01-13 15:04 | A.SPINEOV_ITS ---
Intake Intake Visit Reasons: CT follow up Intake Note: Ms. Wolfe is here today to discuss results of her CT Scan. 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 2. At L3-L4 there is progressive severe spinal canal stenosis with compression of the thecal sac and compression of the exiting right L3 nerve root. Bulging disc also compresses the extraforaminal left L3 nerve root. 3. At L4-L5 there is new compression of the traversing left L5 nerve root and moderate left neural foraminal stenosis. 4. At L5-S1 there is moderate left neural foraminal stenosis with mild compression of the exiting left L5 nerve root. Code(s): M51.36 - Other intervertebral disc degeneration, lumbar region Plan Daisy comes into the office today for her follow-up visit after having her CT scan and x-ray completed. Her images were reviewed with Dr. Chau, and we discussed her symptoms related to her imaging. Unfortunately Daisy bone is extremely osteopenic, which would make surgery very difficult. Not only that but it is unsure if you be able to adequately address her low back pain with a scoliosis correction surgery. The patient stated that she is going to be having her right hip replaced in the upcoming few months. She is encouraged to follow through with the surgery in to reach out to us if she has any new or worsening symptoms. She was also strongly encouraged to follow-up with her primary care physician to address her osteoporosis. Total amount of time spent in this visit was 20 minutes in discussion of symptoms, CT / X-ray imaging results and subsequent plan of care Mo Chau MD,PhD [facility] Coding Level of Care Code Est Pt Level 3 (03297) Diagnoses Lumbar degenerative disc disease M51.36
== END 2023-01-13 15:09 | disposition home or self-care (01) ==
PROVIDERS: PCP Internal Medicine; Visit Provider Neurological Surgery
DX: M51.36 Other intervertebral disc degeneration, lumbar region (principal)
CPT/HCPCS: 99213

== ENCOUNTER → 2023-01-13 14:56 | Outpatient (BNVA) | payer MEDICARE, OTHER, SELFPAY | PROVIDERS: PCP Internal Medicine; Visit Provider Neurological Surgery | DX: M51.36 Other intervertebral disc degeneration, lumbar region (principal) | CPT/HCPCS: 99212 ==

== ENCOUNTER 2023-01-20 09:24 | Outpatient (AMB) | payer MEDICARE, OTHER, SELFPAY ==
--- NOTE | 2023-01-20 09:34 | A.OFFVIS_ITS ---
Intake Vital Signs 01/20/23 09:45 Height 5 ft 3 in Weight 222 lb 10.67 oz BMI 39.4 BP 129/69 Blood Pressure Location Rt brachial Position Sitting Pulse 94 Intake Visit Reasons: Fatty liver/Cologuard results Intake Note: Patient presents to in office visit toda in follow up of cologuard and fatty liver. CC: Patient reports she just started on the Ozempic on 11/24/22 and she is a little constipated and nauseous. Service Cleaner Required: No Accompanied by: Self / Same As Patient Allergies clarithromycin Allergy (Unknown, Verified 01/20/23 09:48) nausea HPI Fatty liver/Cologuard results HPI Details Assessment & Plan (1) Screening for colon cancer: ?Code(s): Z12.11 - Encounter for screening for malignant neoplasm of colon ?Plan: She would prefer to do COloguard as she has no FHX and her past 2 scopes were negative. .? We watch the video explaining how to do it and she feels good that this is an option for her.? I let her know that if it is positive we will have to consider colonoscopy but if it is negative will repeat the test every 3 years. ROV 6 weeks. LABS: Laboratory Tests 10/28/22 11/04/22 11/04/22 07:20 09:48 09:48 WBC 8.8 Hgb 13.6 Hct 43.4 Plt Count 367 AST 50 H ALT 49 H Alkaline Phosphata se 128 H TSH 1.62 Free T4 1.04 Hep Bs Antigen Hep Bs Antibody Hep B Core Total A b Hepatitis C Ab (EI A) 12/16/22 12/16/22 10:43 10:43 WBC Hgb Hct Plt Count AST 17 ALT 9 Alkaline Phosphata se 105 TSH Free T4 Hep Bs Antigen Negative Hep Bs Antibody NONREACTIVE Hep B Core Total A b Nonreactive Hepatitis C Ab (EI A) Nonreactive THE COLOGUARD SCREEN WAS NEGATIVE US OF THE ABD 11/17/22 FINDINGS: PANCREAS: Limited visualization of pancreatic tail and head. Imaged portion of pancreatic body is unremarkable. ABDOMINAL AORTA: Limited visualization. Imaged portion of mid abdominal aorta is nonaneurysmal. INFERIOR VENA CAVA: Visualized portions are normal. LIVER: Heterogeneous hepatic echotexture, possibly reflecting hepatocellular disease. Borderline mild increase in echogenicity of the liver is characteristic of primary hepatocellular disease, possibly due to hepatic steatosis and further limits visualization. Previous exam of 2014 reported increase in hepatic echote xture characteristic of fatty infiltration or hepatocellular disease. Limited visualization. GALLBLADDER: 1.1 x 0.5 x 0.8 cm gallstone. No gallbladder wall thickening or pericholecystic fluid. COMMON BILE DUCT: Normal in caliber measuring 0.3 cm in diameter. RIGHT KIDNEY: No hydronephrosis. No renal calculi. Limited visualization. The kidney measures 9.3 cm in maximum dimension. LEFT KIDNEY: No hydronephrosis. No renal calculi. Limited visualization. The kidney measures 9.5 cm in maximum dimension. SPLEEN: The spleen measures 13.3 cm in maximum dimension. Borderline enlarged pancreas. FREE FLUID: None. US/US abdomen complete IMPRESSION: 1. Heterogeneous hepatic echotexture, po ssibly reflecting hepatocellular disease. Borderline mild increase in echogenicity of the liver is characteristic of primary hepatocellular disease, possibly due to hepatic steatosis and further limits visualization. Previous exam of 2014 reported increased hepatic echotext ure characteristic of fatty infiltration or hepatocellular disease. 2. Cholelithiasis. 3. Spleen measures 13.3 cm. Borderline e nlarged. Limited visualization. 4. CT scan could be considered for furth er evaluation. TODAY'S VISIT 72-year-old female referred to us in the past for colonoscopy screening now referred for new problem of elevated LFTs. She is referred by Julio Keen. It appears she had a mild elevation of her transaminases in October that resolved by the time the lab work was repeated in November. She had had no signs or symptoms of liver disease and no FHX of liver disease. The reason for the drop appears to be that she was started on Wegovy and has lost 23 lbs!! I will complete the work up to be sure that there are no other reversible factors; and she can then continue to follow with Dr. Keen since her LFT's have normalized with wt loss. ROV 4 phi weeks. [facility] Medical History (Updated 01/20/23 @ 13:37 by GUDELIA Potter) Screening for colon cancer Pre-op examination Morbid obesity with BMI of 45.0-49.9, adult Cough Screening for diabetes mellitus Upper back pain on left side Ulnar neuropathy Obesity (BMI 30-39.9) Restless leg syndrome GERD (gastroesophageal reflux disease) Hypercholesterolemia Hypertension Surgical History History of right knee joint replacement History of colonoscopy H/O shoulder replacement History of excision of mass History of left knee replacement History of right breast biopsy Family History Father No problems noted. Mother Medical history unknown Maternal Grandmother Breast cancer Paternal Grandmother Breast cancer Social History Housing: House Alcohol intake: never Patient Tobacco Use Status: Never used Tobacco e-Cigarette/Vaping Use: Never Used Second Hand Smoke Exposure: No Current occupational status: retired Cognitive needs: No Hearing needs: No Vision needs: Yes Review of Systems Const Denies fatigue, Denies fever(s), Denies night sweats, Denies poor appetite and Reports weight loss ENT Reports Normal hearing present, Denies dental pain, Denies dysphagia, Denies hearing loss, Denies mouth pain, Denies odynophagia, Denies throat swelling, Denies tongue swelling and Reports other (Dentition adequate) Card Reports no additional complaints Resp Reports no additional complaints GI Denies abdominal pain, Denies melena, Denies bloating, Denies hematochezia, Denies constipation, Denies GI cramping, Denies dysphagia, Denies excessive flatus, Denies early satiety, Reports heartburn, Denies diarrhea, Denies nausea, Denies odynophagia, Denies vomiting and Denies hematemesis Musc Reports back pain and Reports arthralgias Skin/Breast Denies pruritus, Denies lesions, Denies rash and Denies jaundice Neuro Reports Normal hearing present and Denies Abnormal speech present Endo Denies fatigue Aller/Immun Denies throat swelling and Denies tongue swelling Physical Exam Vital Signs: Last Vital Signs Pulse 94 01/20/23 09:45 BP 129/69 01/20/23 09:45 BMI result Body Mass Index 39.4 Const General: cooperative, no acute distress, well developed and well groomed Nutritional Appearance: well nourished and obese Orientation/consciousness: oriented to person, oriented to place and oriented to time Limitations: No language barrier and ambulation with walker HEENT Head: Yes normocephalic and Yes atraumatic Eyes General: appearance normal, both eyes and all related structures Pupils: Equal, round and reactive pupils present Neck Neck: Yes normal visual inspection and Yes no lymphadenopathy Thyroid: Thyroid normal Resp Effort & Inspection: normal respiratory effort and able to speak in complete sentences Auscultation: clear to auscultation bilaterally Cardio Rate: regular rate Rhythm: regular rhythm Heart sounds: Normal, physiologic split S2 sound present Peripheral pulses: radial pulses present and posterior tibial pulses present GI Inspection: No distended, Yes Abdominal panniculus present and Yes obesity Palpation (GI): Soft to palpation, nontender, no guarding, not rigid and No hepatosplenomegaly present Percussion: Yes normal to percussion Auscultation: normal bowel sounds Rectal Exam - Female: deferred Skin General skin exam: no rashes or lesions noted, turgor normal, skin not dry, no jaundice, No spider nevi and no striae Rashes: no rashes Nails: normal Neuro General: oriented to person, oriented to place and oriented to time Cranial nerves: Yes Equal, round and reactive pupils present and Yes Normal hearing present Speech: No Abnormal speech present Extrem General: Yes normal to inspection, No clubbing, No cyanosis and No edema Psych Appearance: grossly normal and well kempt Mental Status: mental status grossly normal Speech and movement: Normal speech and movement present Affect: normal affect Attitude: cooperative Thought process: Normal thought process present and not confabulating Thought content: Normal thought content present Insight: Fair insight present (Psych) Judgement: Fair judgement present (Psych) Results Reviewed Results Reviewed: 10/28/22 11/04/22 11/04/22 07:20 09:48 09:48 WBC 8.8 Hgb 13.6 Hct 43.4 Plt Count 367 AST 50 H ALT 49 H Alkaline Phosphatase 128 H TSH 1.62 Free T4 1.04 Hep Bs Antigen Hep Bs Antibody Hep B Core Total Ab Hepatitis C Ab (EIA) 12/16/22 12/16/22 10:43 10:43 WBC Hgb Hct Plt Count AST 17 ALT 9 Alkaline Phosphatase 105 TSH Free T4 Hep Bs Antigen Negative Hep Bs Antibody NONREACTIVE Hep B Core Total Ab Nonreactive Hepatitis C Ab (EIA) Nonreactive THE COLOGUARD SCREEN WAS NEGATIVE US OF THE ABD 11/17/22 FINDINGS: PANCREAS: Limited visualization of pancreatic tail and head. Imaged portion of pancreatic body is unremarkable. ABDOMINAL AORTA: Limited visualization. Imaged portion of mid abdominal aorta is nonaneurysmal. INFERIOR VENA CAVA: Visualized portions are normal. LIVER: Heterogeneous hepatic echotexture, possibly reflecting hepatocellular disease. Borderline mild increase in echogenicity of the liver is characteristic of primary hepatocellular disease, possibly due to hepatic steatosis and further limits visualization. Previous exam of 2014 reported increase in hepatic echotexture characteristic of fatty infiltration or hepatocellular disease. Limited visualization. GALLBLADDER: 1.1 x 0.5 x 0.8 cm gallstone. No gallbladder wall thickening or pericholecystic fluid. COMMON BILE DUCT: Normal in caliber measuring 0.3 cm in diameter. RIGHT KIDNEY: No hydronephrosis. No renal calculi. Limited visualization. The kidney measures 9.3 cm in maximum dimension. LEFT KIDNEY: No hydronephrosis. No renal calculi. Limited visualization. The kidney measures 9.5 cm in maximum dimension. SPLEEN: The spleen measures 13.3 cm in maximum dimension. Borderline enlarged pancreas. FREE FLUID: None. US/US abdomen complete IMPRESSION: 1. Heterogeneous hepatic echotexture, possibly reflecting hepatocellular disease. Borderline mild increase in echogenicity of the liver is characteristic of primary hepatocellular disease, possibly due to hepatic steatosis and further limits visualization. Previous exam of 2014 reported increased hepatic echotexture characteristic of fatty infiltration or hepatocellular disease. 2. Cholelithiasis. 3. Spleen measures 13.3 cm. Borderline enlarged. Limited visualization. 4. CT scan could be considered for further evaluation. Assessment & Plan Assessment & Plan (1) Fatty liver: Comment: BASELINE LABS 10/28/22 Plt Count 367 AST 50 H ALT 49 H Alkaline Phosphatase 128 H TSH 1.62 Free T4 1.04 12/16/22 AST 17 ALT 9 Alkaline Phosphatase 105 TSH Free T4 Hep Bs Antigen Negative Hep Bs Antibody NONREACTIVE Hep B Core Total Ab Nonreactive Hepatitis C Ab (EIA) NonreactiVE CURRENT LABS ULTRASOUND OF THE ABDOMEN 10/2022 IMPRESSION: 1. Heterogeneous hepatic echotexture, possibly reflecting hepatocellular disease. Borderline mild increase in echogenicity of the liver is characteristic of primary hepatocellular disease, possibly due to hepatic steatosis and further limits visualization. Previous exam of 2014 reported increased hepatic echotexture characteristic of fatty infiltration or hepatocellular disease. 2. Cholelithiasis. 3. Spleen measures 13.3 cm. Borderline enlarged. Limited visualization. 4. CT scan could be considered for further evaluation. Code(s): K76.0 - Fatty (change of) liver, not elsewhere classified Plan: 72-year-old female referred to us in the past for colonoscopy screening now referred for new problem of elevated LFTs. She is referred by Julio Keen. It appears she had a mild elevation of her transaminases in October that resolved by the time the lab work was repeated in November. She had had no signs or symptoms of liver disease and no FHX of liver disease. The reason for the drop appears to be that she was started on Wegovy and has lost 23 lbs!! I will complete the work up to be sure that there are no other reversible factors; and she can then continue to follow with Dr. Keen since her LFT's have normalized with wt loss. ROV 4 phi weeks. (2) LFT elevation: Code(s): R79.89 - Other specified abnormal findings of blood chemistry (3) Morbid obesity with BMI of 45.0-49.9, adult: Code(s): E66.01 - Morbid (severe) obesity due to excess calories; Z68.42 - Body mass index [BMI] 45.0-49.9, adult (4) Screening for colon cancer: Code(s): Z12.11 - Encounter for screening for malignant neoplasm of colon Orders: Orders Ferritin Today K76.0 - Fatty (change of) liver, not elsewhere classified, R79.89 - Other specified abnormal findings of blood chemistry HIV Ab/Ag Today K76.0 - Fatty (change of) liver, not elsewhere classified, R79.89 - Other specified abnormal findings of blood chemistry Alpha Fetoprotein Today K76.0 - Fatty (change of) liver, not elsewhere classified, R79.89 - Other specified abnormal findings of blood chemistry Mitochondrial Antibody Today K76.0 - Fatty (change of) liver, not elsewhere classified, R79.89 - Other specified abnormal findings of blood chemistry Smooth Muscle Antibody Today K76.0 - Fatty (change of) liver, not elsewhere classified, R79.89 - Other specified abnormal findings of blood chemistry BRIDGET Reflex Titer and Pattern Today K76.0 - Fatty (change of) liver, not elsewhere classified, R79.89 - Other specified abnormal findings of blood chemistry Gamma Glutamyl Transpeptidase Today K76.0 - Fatty (change of) liver, not elsewhere classified, R79.89 - Other specified abnormal findings of blood chemistry Coding Level of Care Code New Pt Level 3 (67212) Diagnoses Fatty liver K76.0 LFT elevation R79.89 Morbid obesity with BMI of 45.0-49.9, adult E66.01; Z68.42 Screening for colon cancer Z12.11
[2023-01-20 09:45] VITALS: BP 129/69; PULSE 94; BMI 39.4
== END 2023-01-20 10:14 | disposition home or self-care (01) ==
PROVIDERS: PCP Internal Medicine; Visit Provider Nurse Practitioner
DX: K76.0 Fatty (change of) liver, not elsewhere classified (principal); R79.89 Other specified abnormal findings of blood chemistry; E66.01 Morbid (severe) obesity due to excess calories; Z68.42 Body mass index [BMI] 45.0-49.9, adult; Z12.11 Encounter for screening for malignant neoplasm of colon
CPT/HCPCS: 99203

== ENCOUNTER 2023-01-20 09:24 | Outpatient (REF) | payer MEDICARE, OTHER, SELFPAY ==
[2023-01-20 11:54] LABS: Ferritin 95 ng/mL (10-250)
[2023-01-20 13:05] LABS: Gamma Glutamyl Transpeptidase 11 U/L (7-33)
[2023-01-21 04:42] LABS: HIV AB/AG Nonreactive (Nonreactive); HIV Num 1 0.06 S/CO (0.00-0.99)
[2023-01-22 12:44] LABS: Alpha Fetoprotein 2.4 ng/mL
[2023-01-24 23:39] LABS: Smooth Muscle Antibody <20 U (<20)
[2023-01-25 12:39] LABS: Mitochondrial Antibodies NEGATIVE (NEGATIVE)
[2023-01-26 08:34] LABS: Anti Nuclear Antibody Screen NEGATIVE (NEGATIVE)
== END 2023-01-20 09:25 | disposition home or self-care (01) ==
LOC: HO.LAB 09:24
PROVIDERS: PCP Internal Medicine; Visit Provider Nurse Practitioner
DX: K76.0 Fatty (change of) liver, not elsewhere classified (principal); R79.89 Other specified abnormal findings of blood chemistry; R94.5 Abnormal results of liver function studies; E66.01 Morbid (severe) obesity due to excess calories; Z68.42 Body mass index [BMI] 45.0-49.9, adult
CPT/HCPCS: 36415; 82105; 82728; 82977; 86015; 86038; 86381; 87389

== ENCOUNTER 2023-02-04 10:33 | Outpatient (AMB) | payer MEDICARE, OTHER, SELFPAY ==
[2023-02-04 10:50] VITALS: BP 130/68; PULSE 92; O2SAT 96; BMI 38.4
--- NOTE | 2023-02-04 10:50 | MHC.PC.OV ---
Vital Signs 02/04/23 10:50 Height 5 ft 3 in Weight 217 lb BMI 38.4 BP 130/68 Blood Pressure Location Lt brachial Position Sitting Pulse 92 Pulse Source Pulse Oximeter Pulse Oximetry (%) 96 Oxygen Delivery Method Room Air Intake Visit Reasons: 3 month f/u Allergies clarithromycin Allergy (Unknown, Verified 02/04/23 10:50) nausea Medication List - Last Reconciled 02/04/23 by Julio Keen MD atenolol 25 mg PO BID celecoxib 50 mg PO BID gabapentin 300 mg PO BID lactobacillus combination no.4 (Probiotic) 3,000 mmu cells PO DAILY losartan 50 mg PO DAILY ropinirole 2 mg PO DAILY semaglutide 0.25 mg (0.368 mL) subcut QWEEK simvastatin 20 mg PO BEDTIME Tobacco use date assessed: 10/22/22 Fall risk assessment: No Falls in past year Last assessed Fall Risk: 02/04/23 Dental Screening Dental Screen Date: 02/04/23 Did you have a dental visit in the last 12 months?: Yes Did you have a dental problem in the last 6 months where you did not have access to dental care?: No Was dental information given to patient?: Patient has dentist HPI 3 month f/u HPI Details 72-year-old obese female with scoliosis and lumbar degenerative disc disease GERD hypercholesterolemia hypertension last seen in September 2022. Patient's colonoscopy is up-to-date mammogram is due March bone density is up-to-date. Coming in for follow-up. Patient follows up with Gastroenterology prefer to do Cologuard abdominal ultrasound done October 2022 showing hepatocellular disease most likely from fatty liver cholelithiasis.. Patient also has the neurosurgeon/spine Center this will continue to be monitored. Patient also sees the [facility] for the right hip end-stage osteoarthritis preferably January.= will be having [place] surgery will be meeting february 17 [facility] Medical History (Updated 02/04/23 @ 11:45 by Julio Keen MD) Screening for colon cancer Pre-op examination Morbid obesity with BMI of 45.0-49.9, adult Cough Screening for diabetes mellitus Upper back pain on left side Ulnar neuropathy Obesity (BMI 30-39.9) Restless leg syndrome GERD (gastroesophageal reflux disease) Hypercholesterolemia Hypertension Surgical History History of right knee joint replacement History of colonoscopy H/O shoulder replacement History of excision of mass History of left knee replacement History of right breast biopsy Family History Father No problems noted. Mother Medical history unknown Maternal Grandmother Breast cancer Paternal Grandmother Breast cancer Social History Housing: House Alcohol intake: never Patient Tobacco Use Status: Never used Tobacco e-Cigarette/Vaping Use: Never Used Second Hand Smoke Exposure: No Current occupational status: retired Cognitive needs: No Hearing needs: No Vision needs: Yes Questionnaire PHQ-9 Over the last 2 weeks, how often have you been bothered by any of the following problems? 1. Little interest or pleasure in doing things: several days 2. Feeling down, depressed, or hopeless: not at all 3. Trouble falling or staying asleep, or sleeping too much: not at all 4. Feeling tired or having little energy: not at all 5. Poor appetite or overeating: not at all 6. Feeling bad about yourself - or that you are a failure or have let yourself or your family down: not at all 7. Trouble concentrating on things, such as reading the newspaper or watching television: not at all 8. Moving or speaking so slowly that other people could have noticed. Or the opposite - being so fidgety or restless that you have been moving around a lot more than usual: not at all 9. Thoughts that you would be better off or of hurting yourself in some way: not at all Total score: 1 Depression Screening Interpretation: Negative Depression Screening Done: Yes [id number] - PHQ-9 Billing: Yes Source: Developed by Drs. Cheko Guy, Karissa Ortiz, Hema Richter and colleagues, with an educational megan from [employer]. Thrive Questionnaire Date Thrive assessed: 10/22/22 AUDIT C Alcohol Use Questionnaire (AUDIT-C) 1. How often do you have a drink containing alcohol?: Never 2. How many drinks containing alcohol do you have on a typical day when you are drinking?: 1 or 2 3. How often do you have six or more drinks on one occasion?: Never Total Score: 0 Score Reviewed/Action Taken: No AMILCAR-7 AMB Questionnaire AMILCAR-7 Date AMILCAR - 7 assessed: 10/22/22 Feeling nervous, anxious, or on edge: 1 = Several days Not being able to stop or control worryin = Not at all Worrying too much about different things: 0 = Not at all Trouble relaxin = Not at all Being so restless that it is hard to sit still: 0 = Not at all Becoming easily annoyed or irritable: 0 = Not at all Feeling afraid as if something awful might happen: 0 = Not at all Total AMILCAR-7 score (0-4 normal; 5-9 mild; 10-14 moderate; 15-21 severe): 1 Source: Developed by Drs. Cheko Guy, Karissa Ortiz, Hema Richter and colleagues, with an educational megan from [employer]. AMILCAR-7 Assessment Billing AMILCAR-7 Assessment Tool: AMILCAR-7 Assessment 40956 Review of Systems Const Denies poor appetite and Denies weakness Eyes Denies no additional complaints ENT Reports Normal hearing present, Denies dizziness, Denies nasal congestion, Denies tinnitus and Denies sore throat Card Denies chest pain, Denies syncope, Denies rapid heart rate and Denies dyspnea Resp Denies cough and Denies dyspnea GI Denies change in stool character, Reports constipation, Denies diarrhea, Denies nausea and Denies vomiting Denies urinary frequency, Denies difficulty voiding and Denies dysuria Neuro Reports Normal hearing present, Denies confusion, Denies dizziness, Denies syncope and Denies weakness Psych Denies confusion Physical exam (Primary Care) Vital Signs: Last Vital Signs Pulse 92 02/04/23 10:50 BP 130/68 02/04/23 10:50 Pulse Ox 96 02/04/23 10:50 Oxygen Delivery Method Room Air 02/04/23 10:50 BMI result Body Mass Index 38.4 Tobacco/Smoking Status: Tobacco use Status Tobacco use date assessed 10/22/22 02/04/23 10:51 Patient Tobacco Use Status Never used Tobacco 02/04/23 10:51 e-Cigarette/Vaping Use Never Used 02/04/23 10:51 PHQ-9: PHQ-9 Score PHQ-9: Total score 1 02/04/23 11:07 Depression Screening Interpretation: Negative Thrive Assessment: Date of Thrive Assessment Date Thrive assessed 10/22/22 02/04/23 10:51 Const General: alert; No acute distress or confusion Orientation/consciousness: No confusion Eyes Conjunctivae: conjunctivae normal Resp Auscultation: clear to auscultation bilaterally Cardio Rate: regular rate Rhythm: regular rhythm GI Inspection: Yes normal to inspection Neuro General: No confusion Cranial nerves: Yes Normal hearing present Extrem General: Yes normal to inspection and No edema Assessment and Plan Assessment & Plan (1) Obesity: Code(s): E66.9 - Obesity, unspecified Qualifiers: Body mass index: BMI 40.0-44.9 Plan: Continue with Semaglutide (2) Lumbar degenerative disc disease: Comment: May 2021, November 2022 Progressive severe levoscoliotic curvature centered at the L1-L2 level. 2. At L3-L4 there is progressive severe spinal canal stenosis with compression of the thecal sac and compression of the exiting right L3 nerve root. Bulging disc also compresses the extraforaminal left L3 nerve root. 3. At L4-L5 there is new compression of the traversing left L5 nerve root and moderate left neural foraminal stenosis. 4. At L5-S1 there is moderate left neural foraminal stenosis with mild compression of the exiting left L5 nerve root. Code(s): M51.36 - Other intervertebral disc degeneration, lumbar region Plan: Keep active lose the weight (3) Osteoarthritis of right hip: Code(s): M16.11 - Unilateral primary osteoarthritis, right hip Plan: Patient is scheduled to have right hip replacement under [facility] (4) Fatty liver: Comment: BASELINE LABS 10/28/22 Plt Count 367 AST 50 H ALT 49 H Alkaline Phosphatase 128 H TSH 1.62 Free T4 1.04 12/16/22 AST 17 ALT 9 Alkaline Phosphatase 105 TSH Free T4 Hep Bs Antigen Negative Hep Bs Antibody NONREACTIVE Hep B Core Total Ab Nonreactive Hepatitis C Ab (EIA) NonreactiVE CURRENT LABS ULTRASOUND OF THE ABDOMEN 10/2022 IMPRESSION: 1. Heterogeneous hepatic echotexture, possibly reflecting hepatocellular disease. Borderline mild increase in echogenicity of the liver is characteristic of primary hepatocellular disease, possibly due to hepatic steatosis and further limits visualization. Previous exam of 2014 reported increased hepatic echotexture characteristic of fatty infiltration or hepatocellular disease. 2. Cholelithiasis. 3. Spleen measures 13.3 cm. Borderline enlarged. Limited visualization. 4. CT scan could be considered for further evaluation. Code(s): K76.0 - Fatty (change of) liver, not elsewhere classified Plan: Low-fat diet and exercise (5) GERD (gastroesophageal reflux disease): Code(s): K21.9 - Gastro-esophageal reflux disease without esophagitis Qualifiers: Esophagitis presence: without esophagitis Qualified Code(s): K21.9 - Gastro-esophageal reflux disease without esophagitis Plan: Avoid the foods that causes that usually spicy foods, tomato products, juices, coffee, soda and foods that your sensitive to. After eating do not lie down, allow 3-4 hours before in lie down. And keep the head of bed above 30 degrees to avoid the acid from going up. (6) Hypertension: Comment: Event monitor 2018- Code(s): I10 - Essential (primary) hypertension Qualifiers: Hypertension type: essential hypertension Qualified Code(s): I10 - Essential (primary) hypertension Plan: Continue with blood pressure medication losartan 50 mg once a day and atenolol 25 mg twice a day (7) Hypercholesterolemia: Code(s): E78.00 - Pure hypercholesterolemia, unspecified Plan: Avoid fried foods, chicken skin, eggs, butter margarine, pastries and meat. Be it pork or beef they have a lot of cholesterol (8) Constipation: Code(s): K59.00 - Constipation, unspecified (9) Preop exam for internal medicine: Code(s): Z01.818 - Encounter for other preprocedural examination Orders: Orders ECG 12 lead EKG Today Z01.818 - Encounter for other preprocedural examination Complete Blood Count Auto Diff Today Z01.818 - Encounter for other preprocedural examination Comprehensive Met. Panel Today Z01.818 - Encounter for other preprocedural examination Medications: New sennosides-docusate sodium 8.6-50 mg (Senna with Docusate Sodium) 2 tab-caps (2 x 8.6-50 mg) PO BEDTIME 60 tabs 0RF K59.00 - Constipation, unspecified tramadol 50 mg PO BEDTIME 30 tabs 0RF M16.11 - Unilateral primary osteoarthritis, right hip Changed From semaglutide for 4 weeks 0.25 mg (0.368 mL) subcut QWEEK 3 mL 0RF E66.9 - Obesity, unspecified To semaglutide for 4 weeks 0.5 mg (0.736 mL) subcut QWEEK 30 days 3.68 mL 0RF E66.9 - Obesity, unspecified Coding Level of Care Code Est Pt Level 4 (07599) Diagnoses Obesity E66.9 Body mass index: BMI 40.0-44.9 Lumbar degenerative disc disease M51.36 Osteoarthritis of right hip M16.11 Fatty liver K76.0 Gastroesophageal reflux disease without esophagitis K21.9 Esophagitis presence: without esophagitis Essential hypertension I10 Hypertension type: essential hypertension Hypercholesterolemia E78.00 Constipation K59.00 Preop exam for internal medicine Z01.818 Additional Codes AMILCAR-7 Assessment Billing - AMILCAR-7 Assessment Tool: AMILCAR-7 Assessment [id number] ([id number])
== END 2023-02-04 11:53 | disposition home or self-care (01) ==
PROVIDERS: PCP Internal Medicine; Visit Provider Internal Medicine
DX: Z01.818 Encounter for other preprocedural examination (principal); M51.36 Other intervertebral disc degeneration, lumbar region; M16.11 Unilateral primary osteoarthritis, right hip; K76.0 Fatty (change of) liver, not elsewhere classified; K21.9 Gastro-esophageal reflux disease without esophagitis; I10 Essential (primary) hypertension; E78.00 Pure hypercholesterolemia, unspecified; K59.00 Constipation, unspecified
CPT/HCPCS: 99214

== ENCOUNTER 2023-02-08 10:20 | Outpatient (REF) | payer MEDICARE, OTHER, SELFPAY ==
--- NOTE | 2023-02-08 10:24 | ECG_ITS ---
Test Reason : preop Blood Pressure : / mmHG Vent. Rate : 079 BPM Atrial Rate : 079 BPM P-R Int : 194 ms QRS Dur : 088 ms QT Int : 372 ms P-R-T Axes : 045 016 033 degrees QTc Int : 426 ms Normal sinus rhythm Normal ECG When compared with ECG of 29-APR-2006 15:54, No significant changes seen Referred By: Julio Keen Electronically Signed By:JERMAN BLAKELY MD
[2023-02-08 10:55] LABS: MANUAL DIFF FLAG NO
[2023-02-08 11:45] LABS: Basophils Percent Auto 0.7 % (0-2); Eosinophils Percent Auto 0.7 % (0-4); Hematocrit 43.1 % (37.0-47.0); Hemoglobin 13.6 g/dl (12.0-16.0); Imm Gran Abs Auto 0.04 X10*3/uL (0.00-0.03); Imm Gran Pct Auto 0.7 % (0.0-0.4); Lymphocytes Absolute Auto 1.3 X10*3/uL (1.2-4.9); Lymphocytes Percent Auto 20.7 % (20-40); Mean Corpuscular HGB Conc 31.6 g/dl (31.0-35.0); Mean Corpuscular Volume 88.9 fL (80.0-98.0); Mean Platelet Volume 10.5 fL (9.4-12.3); Monocytes Absolute Auto 0.7 X10*3/uL (0.1-1.2); Monocytes Percent Auto 11.2 % (2-11); Platelet Count 333 X10*3/uL (160-400); Red Blood Count 4.85 X10*6/uL (4.20-5.50); Red Cell Distribution Width 15.4 % (11.0-16.0); White Blood Count 6.1 X10*3/uL (4.8-10.8)
[2023-02-08 12:50] LABS: Alanine Aminotransferase 15 U/L (0-31); Alkaline Phosphatase 86 U/L (39-117); Anion Gap 16 (12-20); Aspartate Amino Transferase 23 U/L (5-31); Blood Urea Nitrogen 9 mg/dL (9-16); Carbon Dioxide 25 mmol/L (22-29); Chloride 104 mmol/L (96-108); Estimated Glomerular Filt Rate > 60; Glucose Random 106 mg/dL (60-115); Potassium 3.7 mmol/L (3.3-5.1); Sodium 141 mmol/L (135-145); Total Protein 6.7 g/dL (6.5-8.0)
== END 2023-02-08 10:21 | disposition home or self-care (01) ==
LOC: HO.LAB 10:20
PROVIDERS: PCP Internal Medicine; Visit Provider Internal Medicine
DX: Z01.818 Encounter for other preprocedural examination (principal)
CPT/HCPCS: 36415; 80053; 85025; 93005

== ENCOUNTER 2023-02-12 09:37 | Outpatient (AMB) | payer MEDICARE, OTHER, SELFPAY ==
--- NOTE | 2023-02-12 09:41 | A.OFFVIS_ITS ---
Intake Vital Signs 02/12/23 09:42 Height 5 ft 3 in Weight 216 lb 14.958 oz BMI 38.4 BP 142/80 H Blood Pressure Location Lt brachial Position Sitting Intake Visit Reasons: 4 week follow up Intake Note: Patient presents to in office visit today in 4 weeks follow up of labs and fatty liver. CC: Patient reports she continues to feel nauseous and having constipation from Ozempic. Denies other GI symptoms today. 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 Heterogeneous hepatic echotexture, po ssibly reflecting hepatocellular disease. Borderline mild increase in echogenicity of the liver is characteristic of primary hepatocellular disease, possibly due to hepatic steatosis and further limits visualization. Previous exam of 2014 reported increased hepatic echotext ure characteristic of fatty infiltration or hepatocellular disease. 2. Cholelithiasis. 3. Spleen measures 13.3 cm. Borderline e nlarged. Limited visualization. 4. CT scan could be considered for furth er evaluation. Code(s): K76.0 - Fatty (change of) liver, not elsewhere classified Plan: 72-year-old female referred to us in the past for colonoscopy screening now referred for new problem of elevated LFTs. She is referred by Julio Keen. It appears she had a mild elevation of her transaminases in October that resolved by the time the lab work was repeated in November. She had had no signs or symptoms of liver disease and no FHX of liver disease. The reason for the drop appears to be that she was started on Wegovy and has lost 23 lbs!! I will complete the work up to be sure that there are no other reversible fa ctors; and she can then continue to follow with Dr. Keen since her LFT's have normalized with wt loss. ROV 4 phi weeks. (2) LFT elevation: Code(s): R79.89 - Other specified abnormal findings of blood chemistry (3) Morbid obesity with BMI of 45.0-49.9 , adult: Code(s): E66.01 - Morbid (severe) obesity due to excess calories; Z68.42 - Body mass index [BMI] 45.0-49.9, adult (4) Screening for colon cancer: Code(s): Z12.11 - Encounter for screening for malignant neoplasm of colon Orders: Orders Ferritin Today K76.0 - Fatty (dee nge of) liver, not elsewhere classif ied, R7 - Othe r specified abnorm al findings of blo od chemistry HIV Ab/Ag Today K76.0 - Fatty (dee nge of) liver, not elsewhere classif ied, R7 - Othe r specified abnorm al findings of blo od chemistry Alpha Fetoprotein Today K76.0 - Fatty (dee nge of) liver, not elsewhere classif ied, R7. - Othe r specified abnorm al findings of blo od chemistry Mitochondrial Anti body Today K76.0 - Fatty (dee nge of) liver, not elsewhere classif ied, R7. - Othe r specified abnorm al findings of blo od chemistry Smooth Muscle Anti body Today K76.0 - Fatty (dee nge of) liver, not elsewhere classif ied, R7. - Othe r specified abnorm al findings of blo od chemistry BRIDGET Reflex Titer a nd Pattern Today K76.0 - Fatty (dee nge of) liver, not elsewhere classif ied, R7 - Othe r specified abnorm al findings of blo od chemistry Gamma Glutamyl Tra nspeptidase Today K76.0 - Fatty (dee nge of) liver, not elsewhere classif ied, R7 - Othe r specified abnorm al findings of blo od chemistry LABS: Laboratory Tests 01/20/23 10:27 Ferritin 95 GGT 11 BRIDGET Screen NEGATIVE Anti-Mitochondrial Ab NEGATIVE Anti-Smooth Muscle Ab <20 HIV 1&2 Ab/P24 Ag 4thGn Nonreactive Laboratory Tests 10/16/23 10:53 Total Bilirubin 1.0 AST 23 ALT 15 Alkaline Phosphata se 86 TODAY'S VISIT 72-year-old female referred to us in the past for colonoscopy screening now referred for new problem of elevated LFTs. She is referred by Julio Keen. It appears she had a mild elevation of her transaminases in October that resolved by the time the lab work was repeated in November. She does not feel well, she has been on Ozempic at the lowest dose since November and she can not seem to acclimate to the s/e - nausea, lack of appetite etc and CIC. Taking a laxative makes the nausea worse. She will be speaking to the prescriber about this. We review the tests and currently transaminases in all parameters of the liver are normal even though she has fatty liver on ultrasound. She is educated about slow steady weight loss, avoiding alcohol, and if she is diabetic control her blood sugars. The recommendation is that her primary care provider monitor her transaminases and should they become more than twice the normal limit then she should be referred back to Gastroenterology. They should be monitored twice a year and patients adherence to good dietary habits should be encouraged. Return office visit p.r.n.. [facility] Medical History Screening for colon cancer Pre-op examination Morbid obesity with BMI of 45.0-49.9, adult Cough Screening for diabetes mellitus Upper back pain on left side Ulnar neuropathy Obesity (BMI 30-39.9) Restless leg syndrome GERD (gastroesophageal reflux disease) Hypercholesterolemia Hypertension Surgical History History of right knee joint replacement History of colonoscopy H/O shoulder replacement History of excision of mass History of left knee replacement History of right breast biopsy Family History Father No problems noted. Mother Medical history unknown Maternal Grandmother Breast cancer Paternal Grandmother Breast cancer Social History Housing: House Alcohol intake: never Patient Tobacco Use Status: Never used Tobacco e-Cigarette/Vaping Use: Never Used Second Hand Smoke Exposure: No Current occupational status: retired Cognitive needs: No Hearing needs: No Vision needs: Yes Review of Systems Const Denies fatigue, Denies fever(s), Denies night sweats, Reports poor appetite and Reports weight loss Eyes Details: glasses Reports requires corrective lenses ENT Reports Normal hearing present, Denies dental pain, Denies dysphagia, Denies hearing loss, Denies mouth pain, Denies odynophagia, Denies throat swelling, Denies tongue swelling and Reports other (Dentition adequate) Card Reports no additional complaints Resp Reports no additional complaints GI Denies abdominal pain, Denies melena, Denies bloating, Denies hematochezia, Reports constipation, Denies GI cramping, Denies dysphagia, Denies excessive flatus, Reports early satiety, Denies heartburn, Denies diarrhea, Reports nausea, Denies odynophagia, Reports vomiting and Denies hematemesis Skin/Breast Denies pruritus, Denies lesions, Denies rash and Denies jaundice Neuro Reports Normal hearing present and Denies Abnormal speech present Endo Denies fatigue Aller/Immun Denies throat swelling and Denies tongue swelling Physical Exam Vital Signs: Last Vital Signs BP 142/80 H 02/12/23 09:42 BMI result Body Mass Index 38.4 Const General: cooperative, no acute distress, well developed and well groomed Nutritional Appearance: well nourished and obese Orientation/consciousness: oriented to person, oriented to place and oriented to time Limitations: No language barrier and ambulation with walker HEENT Head: Yes normocephalic and Yes atraumatic Eyes General: appearance normal, both eyes and all related structures Pupils: Equal, round and reactive pupils present Neck Neck: Yes normal visual inspection and Yes no lymphadenopathy Thyroid: Thyroid normal Resp Effort & Inspection: normal respiratory effort and able to speak in complete sentences Auscultation: clear to auscultation bilaterally Cardio Rate: regular rate Rhythm: regular rhythm Heart sounds: Normal, physiologic split S2 sound present Peripheral pulses: radial pulses present and posterior tibial pulses present GI Inspection: No distended, Yes Abdominal panniculus present and Yes obesity Palpation (GI): Soft to palpation, nontender, no guarding, not rigid and No hepatosplenomegaly present Percussion: Yes normal to percussion Auscultation: normal bowel sounds Rectal Exam - Female: deferred Skin General skin exam: no rashes or lesions noted, turgor normal, skin not dry, no jaundice, No spider nevi and no striae Rashes: no rashes Nails: normal Neuro General: oriented to person, oriented to place and oriented to time Cranial nerves: Yes Equal, round and reactive pupils present and Yes Normal hearing present Speech: No Abnormal speech present Extrem General: Yes normal to inspection, No clubbing, No cyanosis and No edema Psych Appearance: grossly normal and well kempt Mental Status: mental status grossly normal Speech and movement: Normal speech and movement present Affect: normal affect Attitude: cooperative Thought process: Normal thought process present and not confabulating Thought content: Normal thought content present Insight: Fair insight present (Psych) Judgement: Fair judgement present (Psych) Assessment & Plan Assessment & Plan (1) Fatty liver: Comment: BASELINE LABS 10/28/22 Plt Count 367 AST 50 H ALT 49 H Alkaline Phosphatase 128 H TSH 1.62 Free T4 1.04 12/16/22 AST 17 ALT 9 Alkaline Phosphatase 105 Hep Bs Antigen Negative Hep Bs Antibody NONREACTIVE Hep B Core Total Ab Nonreactive Hepatitis C Ab (EIA) NonreactiVE CURRENT LABS ULTRASOUND OF THE ABDOMEN 10/2022 IMPRESSION: 1. Heterogeneous hepatic echotexture, possibly reflecting hepatocellular disease. Borderline mild increase in echogenicity of the liver is characteristic of primary hepatocellular disease, possibly due to hepatic steatosis and further limits visualization. Previous exam of 2014 reported increased hepatic echotexture characteristic of fatty infiltration or hepatocellular disease. 2. Cholelithiasis. 3. Spleen measures 13.3 cm. Borderline enlarged. Limited visualization. 4. CT scan could be considered for further evaluation. Code(s): K76.0 - Fatty (change of) liver, not elsewhere classified Plan: 72-year-old female referred to us in the past for colonoscopy screening now referred for new problem of elevated LFTs. She is referred by Julio Keen. It appears she had a mild elevation of her transaminases in October that resolved by the time the lab work was repeated in November. She does not feel well, she has been on Ozempic at the lowest dose since November and she can not seem to acclimate to the s/e - nausea, lack of appetite etc and CIC. Taking a laxative makes the nausea worse. She will be speaking to the prescriber about this. We review the tests and currently transaminases in all parameters of the liver are normal even though she has fatty liver on ultrasound. She is educated about slow steady weight loss, avoiding alcohol, and if she is diabetic control her blood sugars. The recommendation is that her primary care provider monitor her transaminases and should they become more than twice the normal limit then she should be referred back to Gastroenterology. They should be monitored twice a year and patients adherence to good dietary habits should be encouraged. Return office visit p.r.n.. (2) Morbid obesity with BMI of 45.0-49.9, adult: Code(s): E66.01 - Morbid (severe) obesity due to excess calories; Z68.42 - Body mass index [BMI] 45.0-49.9, adult (3) Cholelithiasis: Comment: October 2022 Code(s): K80.20 - Calculus of gallbladder without cholecystitis without obstruction (4) GERD (gastroesophageal reflux disease): Code(s): K21.9 - Gastro-esophageal reflux disease without esophagitis Qualifiers: Esophagitis presence: without esophagitis Qualified Code(s): K21.9 - Gastro-esophageal reflux disease without esophagitis Coding Level of Care Code Est Pt Level 4 (87928) Diagnoses Fatty liver K76.0 Morbid obesity with BMI of 45.0-49.9, adult E66.01; Z68.42 Cholelithiasis K80.20 Gastroesophageal reflux disease without esophagitis K21.9 Esophagitis presence: without esophagitis
[2023-02-12 09:42] VITALS: BP 142/80; BMI 38.4
== END 2023-02-12 11:31 | disposition home or self-care (01) ==
PROVIDERS: PCP Internal Medicine; Visit Provider Nurse Practitioner
DX: K76.0 Fatty (change of) liver, not elsewhere classified (principal); E66.01 Morbid (severe) obesity due to excess calories; Z68.42 Body mass index [BMI] 45.0-49.9, adult; K80.20 Calculus of gallbladder without cholecystitis without obstruction; K21.9 Gastro-esophageal reflux disease without esophagitis
CPT/HCPCS: 99214

== ENCOUNTER → 2023-02-12 09:37 | Outpatient (BNVA) | payer MEDICARE, OTHER, SELFPAY | PROVIDERS: PCP Internal Medicine; Visit Provider Nurse Practitioner | DX: K76.0 Fatty (change of) liver, not elsewhere classified (principal); K80.20 Calculus of gallbladder without cholecystitis without obstruction; K21.9 Gastro-esophageal reflux disease without esophagitis; E66.01 Morbid (severe) obesity due to excess calories; Z68.38 Body mass index [BMI] 38.0-38.9, adult | CPT/HCPCS: 99212 ==

== ENCOUNTER 2023-09-07 08:07 | Outpatient (RCR) | payer MEDICARE, OTHER, SELFPAY | END 2023-09-21 09:00 | disposition home or self-care (01) | LOC: HO.WCC 08:07 | PROVIDERS: PCP Internal Medicine; Visit Provider Physician Assistant | DX: L97.812 Non-pressure chronic ulcer of other part of right lower leg with fat layer exposed (principal); I87.2 Venous insufficiency (chronic) (peripheral); I10 Essential (primary) hypertension; G62.9 Polyneuropathy, unspecified; R60.0 Localized edema; Z96.641 Presence of right artificial hip joint | CPT/HCPCS: 11042; 97597; 99212 ==

== ENCOUNTER 2023-09-07 09:59 | Outpatient (AMB) | payer MEDICARE, OTHER, SELFPAY ==
--- NOTE | 2023-09-07 10:06 | MHC.PC.OV ---
Vital Signs 09/07/23 10:07 Height 5 ft 3 in Weight 188 lb 0.6 oz BMI 33.3 BP 122/68 Blood Pressure Location Lt brachial Position Sitting Pulse 62 Pulse Source Pulse Oximeter Pulse Oximetry (%) 95 Oxygen Delivery Method Room Air Intake Visit Reasons: [facility] 10/08 Intake Note: Patient is here for a Pre-op for cataract scheduled with Dr. Ramires on 10/09/2023 Allergies clarithromycin Allergy (Unknown, Verified 09/07/23 10:06) nausea Medication List - Last Reconciled 09/07/23 by Julio Keen MD atenolol 25 mg PO BID celecoxib (Celebrex) 200 mg PO DAILY duloxetine 30 mg PO DAILY gabapentin 300 mg PO BID 90 days lactobacillus combination no.4 (Probiotic) 3,000 mmu cells PO DAILY losartan 50 mg PO DAILY ropinirole 2 mg PO DAILY simvastatin 20 mg PO BEDTIME tramadol 50 mg PO BEDTIME Tobacco use date assessed: 09/07/23 Fall risk assessment: No Falls in past year Last assessed Fall Risk: 09/07/23 Dental Screening Dental Screen Date: 09/07/23 Did you have a dental visit in the last 12 months?: No Did you have a dental problem in the last 6 months where you did not have access to dental care?: No HPI [facility] 10/08 HPI Details 72-year-old obese female(noted weight loss of more than 20 lb) hypertension hypercholesterolemia GERD asthma history of lumbar degenerative disc disease fatty liver coming in for preoperative evaluation for cataract surgery. Last seen in January 2023. Review of the notes was seen by Gastroenterology in January for the fatty liver has been placed on Ozempic ultrasound of the abdomen done showing cholelithiasis. CAtaract surgery R eye 2023, [place] seen wound care R hip wound. R lloyd laceration becoming a blister 3 cm shopping cart July. presently an ulcer walking without cane. . does walk but less no problem with going a flight of stairs [facility] Medical History (Updated 09/07/23 @ 10:54 by Julio Keen MD) Screening for colon cancer Pre-op examination Morbid obesity with BMI of 45.0-49.9, adult Cough Screening for diabetes mellitus Upper back pain on left side Ulnar neuropathy Obesity (BMI 30-39.9) Restless leg syndrome GERD (gastroesophageal reflux disease) Hypercholesterolemia Hypertension Surgical History (Updated 09/07/23 @ 10:48 by Julio Keen MD) History of right knee joint replacement History of colonoscopy H/O shoulder replacement History of excision of mass History of left knee replacement History of right breast biopsy Family History Father No problems noted. Mother Medical history unknown Maternal Grandmother Breast cancer Paternal Grandmother Breast cancer Social History Housing: House Alcohol intake: never Patient Tobacco Use Status: Never used Tobacco e-Cigarette/Vaping Use: Never Used Second Hand Smoke Exposure: No Current occupational status: retired Cognitive needs: No Hearing needs: No Vision needs: Yes Questionnaire PHQ-9 Over the last 2 weeks, how often have you been bothered by any of the following problems? 1. Little interest or pleasure in doing things: not at all 2. Feeling down, depressed, or hopeless: not at all 3. Trouble falling or staying asleep, or sleeping too much: not at all 4. Feeling tired or having little energy: not at all 5. Poor appetite or overeating: not at all 6. Feeling bad about yourself - or that you are a failure or have let yourself or your family down: not at all 7. Trouble concentrating on things, such as reading the newspaper or watching television: not at all 8. Moving or speaking so slowly that other people could have noticed. Or the opposite - being so fidgety or restless that you have been moving around a lot more than usual: not at all 9. Thoughts that you would be better off or of hurting yourself in some way: not at all Total score: 0 Depression Screening Interpretation: Negative Depression Screening Done: Yes 84997 - PHQ-9 Billing: Yes Source: Developed by Drs. Cheko Guy, Karissa Ortiz, Hema Richter and colleagues, with an educational megan from [employer]. Thrive Questionnaire Date Thrive assessed: 09/07/23 I am a: Patient What is your living situation today?: I have a steady place to live Within the past 12 months, did the food you bought not last and you didn't have the money to get more?: Never true Within the past 12 months, did you worry whether your food would run out before you got money to buy more?: Never true Do you have trouble paying for medicines?: No Do you have trouble getting transportation to medical appointments?: No Do you have trouble paying your heating and electricity bill?: No Do you have trouble taking care of your child, family member or friend?: No Do you have trouble with day-to-day activities such as bathing, preparing meals, shopping, managing finances, etc.?: No Are you currently unemployed and looking for a job?: No Are you interested in more education?: No Please select the resources that you would like help with: None Currently or been in a relationship where the following occur: no concerns reported THRIVE Score: 0 AUDIT C Alcohol Use Questionnaire (AUDIT-C) 1. How often do you have a drink containing alcohol?: Never 2. How many drinks containing alcohol do you have on a typical day when you are drinking?: 1 or 2 3. How often do you have six or more drinks on one occasion?: Never Total Score: 0 Score Reviewed/Action Taken: No AMILCAR-7 AMB Questionnaire AMILCAR-7 Date AMILCAR - 7 assessed: 09/07/23 Feeling nervous, anxious, or on edge: 0 = Not at all Not being able to stop or control worryin = Not at all Worrying too much about different things: 0 = Not at all Trouble relaxin = Not at all Being so restless that it is hard to sit still: 0 = Not at all Becoming easily annoyed or irritable: 0 = Not at all Feeling afraid as if something awful might happen: 0 = Not at all Total AMILCAR-7 score (0-4 normal; 5-9 mild; 10-14 moderate; 15-21 severe): 0 Source: Developed by Drs. Cheko Guy, Karissa Ortiz, Hema Richter and colleagues, with an educational megan from [employer]. AMILCAR-7 Assessment Billing AMILCAR-7 Assessment Tool: AMILCAR-7 Assessment 15281 Review of Systems Const Denies poor appetite and Denies weakness Eyes Denies no additional complaints ENT Reports Normal hearing present, Denies dizziness, Denies nasal congestion, Denies tinnitus and Denies sore throat Card Denies chest pain, Denies syncope, Denies rapid heart rate and Denies dyspnea Resp Denies cough and Denies dyspnea GI Denies change in stool character, Reports constipation, Denies diarrhea, Denies nausea and Denies vomiting Denies urinary frequency, Denies difficulty voiding and Denies dysuria Neuro Reports Normal hearing present, Denies confusion, Denies dizziness, Denies syncope and Denies weakness Psych Denies confusion Physical exam (Primary Care) Vital Signs: Last Vital Signs Pulse 62 09/07/23 10:07 BP 122/68 09/07/23 10:07 Pulse Ox 95 09/07/23 10:07 Oxygen Delivery Method Room Air 09/07/23 10:07 BMI result Body Mass Index 33.3 Tobacco/Smoking Status: Tobacco use Status Tobacco use date assessed 09/07/23 09/07/23 10:07 Patient Tobacco Use Status Never used Tobacco 09/07/23 10:07 e-Cigarette/Vaping Use Never Used 09/07/23 10:07 PHQ-9: PHQ-9 Score PHQ-9: Total score 0 09/07/23 10:07 Depression Screening Interpretation: Negative Thrive Assessment: Date of Thrive Assessment Date Thrive assessed 09/07/23 09/07/23 10:07 Currently or been in a relationship where the following occur: no concerns reported Const General: alert; No acute distress or confusion Orientation/consciousness: No confusion Eyes Conjunctivae: conjunctivae normal Resp Auscultation: clear to auscultation bilaterally Cardio Rate: regular rate Rhythm: regular rhythm GI Inspection: Yes normal to inspection Neuro General: No confusion Cranial nerves: Yes Normal hearing present Extrem General: Yes normal to inspection and No edema Assessment and Plan Assessment & Plan (1) Preop exam for internal medicine: Code(s): Z01.818 - Encounter for other preprocedural examination Plan: EKG and blood work requested. As for cardiac complications patient is in the intermediate risk due to age. Discussed my concerns about the open wound of the right hip(surgical) and the right lloyd(traumatic) these are chronic nonhealing wounds. 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 (2) Hypertension: Comment: Event monitor 2018- Code(s): I10 - Essential (primary) hypertension Qualifiers: Hypertension type: essential hypertension Qualified Code(s): I10 - Essential (primary) hypertension Plan: Continue with blood pressure medication. Decrease salt intake and exercise presently on atenolol 25 mg twice a day losartan 50 mg once a day (3) Hypercholesterolemia: Code(s): E78.00 - Pure hypercholesterolemia, unspecified Plan: Avoid fried foods, chicken skin, eggs, butter margarine, pastries and meat. Be it pork or beef they have a lot of cholesterol LDL goal of less than 130 and triglyceride of less than 150 on on simvastatin 20 mg once a day (4) GERD (gastroesophageal reflux disease): Code(s): K21.9 - Gastro-esophageal reflux disease without esophagitis Qualifiers: Esophagitis presence: without esophagitis Qualified Code(s): K21.9 - Gastro-esophageal reflux disease without esophagitis Plan: Avoid the foods that causes that usually spicy foods, tomato products, juices, coffee, soda and foods that your sensitive to. After eating do not lie down, allow 3-4 hours before in lie down. And keep the head of bed above 30 degrees to avoid the acid from going up. (5) Fatty liver: Comment: BASELINE LABS 10/28/22 Plt Count 367 AST 50 H ALT 49 H Alkaline Phosphatase 128 H TSH 1.62 Free T4 1.04 12/16/22 AST 17 ALT 9 Alkaline Phosphatase 105 Hep Bs Antigen Negative Hep Bs Antibody NONREACTIVE Hep B Core Total Ab Nonreactive Hepatitis C Ab (EIA) NonreactiVE CURRENT LABS ULTRASOUND OF THE ABDOMEN 10/2022 IMPRESSION: 1. Heterogeneous hepatic echotexture, possibly reflecting hepatocellular disease. Borderline mild increase in echogenicity of the liver is characteristic of primary hepatocellular disease, possibly due to hepatic steatosis and further limits visualization. Previous exam of 2014 reported increased hepatic echotexture characteristic of fatty infiltration or hepatocellular disease. 2. Cholelithiasis. 3. Spleen measures 13.3 cm. Borderline enlarged. Limited visualization. 4. CT scan could be considered for further evaluation. Code(s): K76.0 - Fatty (change of) liver, not elsewhere classified Plan: Continuing to monitor liver function test (6) History of right hip replacement: Comment: 02/2023 Dr. Baird [place] Code(s): Z96.641 - Presence of right artificial hip joint Plan: Nonhealing chronic surgical wounds on the right hip being taken care of by Wound Care. Patient has been walking good with the new right hip (7) Non-healing surgical wound: Comment: R hip (02/2023)R hip replacement Code(s): T81.89XA - Other complications of procedures, not elsewhere classified, initial encounter Plan: Concern about the nonhealing wound on the right hip surgical wound since February 2023 (8) Non-healing ulcer of lower leg: Code(s): L97.909 - Non-pressure chronic ulcer of unspecified part of unspecified lower leg with unspecified severity Plan: Patient follows up with wound care but concerns of a nonhealing wound on the right lloyd. Orders: Orders Vitamin B12 and Folate Today Z01.818 - Encounter for other preprocedural examination ECG 12 lead EKG Today Z.818 - Encounter for other preprocedural examination Complete Blood Count Auto Diff Today Z.818 - Encounter for other preprocedural examination Comprehensive Met. Panel Today Z818 - Encounter for other preprocedural examination Free T4 (Free Thyroxine) Today Z.818 - Encounter for other preprocedural examination Thyroid Stimulating Hormone Today Z.818 - Encounter for other preprocedural examination Vitamin D 25-OH Total Today Z.818 - Encounter for other preprocedural examination Lipid Panel Today E78.00 - Pure hypercholesterolemia, unspecified, Z01.818 - Encounter for other preprocedural examination Medications: Changed From ropinirole 2 mg PO DAILY 90 tabs 2RF To ropinirole 3 mg (1.5 x 2 mg) PO DAILY 90 days 135 tabs 2RF Coding Level of Care Code Est Pt Level 4 (54450) Diagnoses Preop exam for internal medicine Z818 Essential hypertension I10 Hypertension type: essential hypertension Hypercholesterolemia E78.00 Gastroesophageal reflux disease without esophagitis K21.9 Esophagitis presence: without esophagitis Fatty liver K76.0 History of right hip replacement Z96.641 Non-healing surgical wound T81.89XA Non-healing ulcer of lower leg L97.909 Additional Codes AMILCAR-7 Assessment Billing - AMILCAR-7 Assessment Tool: AMILCAR-7 Assessment 26350 ([id number])
[2023-09-07 10:07] VITALS: BP 122/68; PULSE 62; O2SAT 95; BMI 33.3
== END 2023-09-07 10:58 | disposition home or self-care (01) ==
PROVIDERS: PCP Internal Medicine; Visit Provider Internal Medicine
DX: I10 Essential (primary) hypertension (principal); E78.00 Pure hypercholesterolemia, unspecified; L97.909 Non-pressure chronic ulcer of unspecified part of unspecified lower leg with unspecified severity; Z96.641 Presence of right artificial hip joint; K21.9 Gastro-esophageal reflux disease without esophagitis; K76.0 Fatty (change of) liver, not elsewhere classified; Z01.818 Encounter for other preprocedural examination; T81.89XA Other complications of procedures, not elsewhere classified, initial encounter
CPT/HCPCS: 99214

== ENCOUNTER 2023-09-08 11:05 | Outpatient (REF) | payer MEDICARE, OTHER, SELFPAY | END 2023-09-08 11:06 | disposition home or self-care (01) | LOC: HO.MAMMO 11:05 | PROVIDERS: PCP Internal Medicine; Visit Provider Internal Medicine | DX: Z12.31 Encounter for screening mammogram for malignant neoplasm of breast (principal) | CPT/HCPCS: 77063; 77067 ==

== ENCOUNTER → 2023-09-08 11:15 | Outpatient (BNV) | payer MEDICARE, OTHER, SELFPAY | PROVIDERS: PCP Internal Medicine; Visit Provider Radiology Diagnostic Radiology | DX: Z12.31 Encounter for screening mammogram for malignant neoplasm of breast (principal) | CPT/HCPCS: 77063; 77067 ==

== ENCOUNTER → 2023-09-14 09:04 | Outpatient (REF) | payer MEDICARE, OTHER, SELFPAY ==
--- NOTE | 2023-09-14 09:09 | ECG_ITS ---
Test Reason : PREOP Blood Pressure : / mmHG Vent. Rate : 066 BPM Atrial Rate : 066 BPM P-R Int : 204 ms QRS Dur : 086 ms QT Int : 390 ms P-R-T Axes : 088 040 031 degrees QTc Int : 408 ms Normal sinus rhythm Normal ECG When compared with ECG of 08-FEB-2023 10:24, Nonspecific T wave abnormality no longer evident in Lateral leads Referred By: Julio Keen Electronically Signed By:Niles Osborn
[2023-09-14 09:26] LABS: MANUAL DIFF FLAG NO
[2023-09-14 09:48] LABS: Basophils Absolute Auto 0.1 X10*3/uL (0.0-0.2); Basophils Percent Auto 0.9 % (0-2); Eosinophils Absolute Auto 0.1 X10*3/uL (0.0-0.4); Eosinophils Percent Auto 2.2 % (0-4); Hematocrit 35.1 % (37.0-47.0); Imm Gran Abs Auto 0.01 X10*3/uL (0.00-0.03); Imm Gran Pct Auto 0.2 % (0.0-0.4); Lymphocytes Absolute Auto 2.1 X10*3/uL (1.2-4.9); Lymphocytes Percent Auto 36.6 % (20-40); Mean Corpuscular HGB Conc 31.3 g/dl (31.0-35.0); Mean Corpuscular Hemoglobin 27.7 pg (27.0-33.0); Mean Corpuscular Volume 88.4 fL (80.0-98.0); Monocytes Absolute Auto 0.5 X10*3/uL (0.1-1.2); Monocytes Percent Auto 9.1 % (2-11); Platelet Count 310 X10*3/uL (160-400); Red Blood Count 3.97 X10*6/uL (4.20-5.50); Red Cell Distribution Width 13.1 % (11.0-16.0); White Blood Count 5.8 X10*3/uL (4.8-10.8)
[2023-09-14 10:06] LABS: Alanine Aminotransferase 25 U/L (0-31); Albumin Level 3.9 g/dL (3.5-5.0); Alkaline Phosphatase 116 U/L (39-117); Anion Gap 13 (12-20); Aspartate Amino Transferase 34 U/L (5-31); Bilirubin Total 0.6 mg/dL (0.0-1.0); Blood Urea Nitrogen 14 mg/dL (9-16); Calcium 9.6 mg/dL (8.4-10.2); Carbon Dioxide 29 mmol/L (22-29); Chloride 105 mmol/L (96-108); Cholesterol 161 mg/dL (<200); Estimated Glomerular Filt Rate > 60; Glucose Random 93 mg/dL (60-115); HDL Cholesterol 55 mg/dL (>40); LDL Cholesterol Calculated 89 mg/dL (<100); Potassium 4.7 mmol/L (3.3-5.1); Sodium 142 mmol/L (135-145); Total Protein 6.3 g/dL (6.5-8.0); Triglycerides 87 mg/dL (<150)
[2023-09-14 10:24] LABS: Free T4 (Free Thyroxine) 0.78 ng/dL (0.71-1.85); Thyroid Stimulating Hormone 1.45 uIU/mL (0.32-4.0); Vitamin D 25-OH Total 34.5 ng/mL (>30)
[2023-09-14 10:54] LABS: Folate 8.1 ng/mL (> or = 4.0); Vitamin B12 315 pg/mL (200-900)
== END ==
LOC: HO.CARD 09:04
PROVIDERS: PCP Internal Medicine; Visit Provider Internal Medicine
DX: Z01.818 Encounter for other preprocedural examination (principal); E78.00 Pure hypercholesterolemia, unspecified
CPT/HCPCS: 36415; 80053; 80061; 82306; 82607; 82746; 84439; 84443; 85025; 93005

== ENCOUNTER → 2023-09-14 09:09 | Outpatient (BNV) | payer MEDICARE, OTHER, SELFPAY | PROVIDERS: PCP Internal Medicine; Visit Provider Internal Medicine Cardiovascular Disease | DX: I10 Essential (primary) hypertension (principal); E78.00 Pure hypercholesterolemia, unspecified; Z01.810 Encounter for preprocedural cardiovascular examination | CPT/HCPCS: 93010 ==

== ENCOUNTER 2023-12-31 08:55 | Outpatient (REF) | payer MEDICARE, OTHER, SELFPAY ==
--- NOTE | ~2023-12-31 | XR_ITS ---
EXAMINATION: XR HIP, LEFT. AP pelvis CLINICAL INFORMATION: Left hip pain COMPARISON: 01/16/2021 and 10/28/2022 TECHNIQUE: AP radiograph of the pelvis. AP and frog-lateral views of the left hip. FINDINGS: Moderate-severe osteoarthritis of the left hip with joint space narrowing, sclerosis, and marginal osteophytes which has significantly progressed since the previous study. No acute osseous abnormality. Visualized portion of the right total hip arthroplasty is unremarkable. XR/XR hip LT w PEL1V IMPRESSION: Moderate-severe left hip osteoarthritis which has significantly progressed since the 10/28/2022. Electronically signed by: Brendon Sher MD 01/06/2024 08:43 AM EDT RP
== END 2023-12-31 08:56 | disposition home or self-care (01) ==
LOC: HO.XRAY 08:55
PROVIDERS: PCP Internal Medicine; Visit Provider Student in an Organized Health Care Education/Training Program
DX: M25.552 Pain in left hip (principal)
CPT/HCPCS: 73502

== ENCOUNTER 2024-02-01 08:26 | Outpatient (AMB) | payer MEDICARE, OTHER, SELFPAY ==
[2024-02-01 08:27] VITALS: BP 140/72; PULSE 59; O2SAT 97; BMI 34.5
--- NOTE | 2024-02-01 08:27 | A.OFFPC_ITS ---
Vital Signs 02/01/24 08:27 02/01/24 08:51 Height 5 ft 3 in Weight 195 lb BMI 34.5 BP 140/72 H 132/80 Blood Pressure Location Lt brachial Lt brachial Position Sitting Sitting Pulse 59 Pulse Source Pulse Oximeter Pulse Oximetry (%) 97 Oxygen Delivery Method Room Air Intake Visit Reasons: LT hip replacement Intake Note: Patient is here for a Pre-op for LT hip replacement scheduled with Dr. Mayda Baird [employer] Required: No Allergies clarithromycin Allergy (Unknown, Verified 02/01/24 08:43) nausea Medication List - Last Reconciled 02/01/24 by Shayy Rodgers PA-C atenolol 25 mg PO BID celecoxib (Celebrex) 200 mg PO DAILY gabapentin 300 mg PO BID 90 days lactobacillus combination no.4 (Probiotic) 3,000 mmu cells PO DAILY losartan 50 mg PO DAILY ropinirole 3 mg (1.5 x 2 mg) PO DAILY 90 days simvastatin 20 mg PO BEDTIME tramadol 50 mg PO BEDTIME Tobacco use date assessed: 09/07/23 Fall risk assessment: No Falls in past year Last assessed Fall Risk: 02/01/24 Dental Screening Dental Screen Date: 09/07/23 HPI LT hip replacement HPI Details 73-year-old female with past medical his tory of hypertension, hypercholesterolemia, GERD, asthma, history of lumbar degenerative disc disease, fatty liver last seen by Dr. Keen coming in for preoperative evaluation for left hip replacement.?Patient does not have date for surgery at this time but will have it completed in [place] by Dr. Mayda Baird. History of bilateral shoulder and knee replacements as well as right hip replacement. Hypertension:?blood pressure under good control today 132/80 stable on atenolol and losartan. Hypercholesterolemia: cholesterol at goal on last labs presently on Simvastatin. Patient has no history of [place], CVA, CHF, or diabetes mellitus. Patient has had anesthesia in the past without complication. [facility] Medical History (Updated 02/01/24 @ 08:46 by Shayy Rodgers PA-C) Pre-op examination Screening for colon cancer Morbid obesity with BMI of 45.0-49.9, adult Cough Screening for diabetes mellitus Upper back pain on left side Ulnar neuropathy Obesity (BMI 30-39.9) Restless leg syndrome GERD (gastroesophageal reflux disease) Hypercholesterolemia Hypertension Surgical History History of right knee joint replacement History of colonoscopy H/O shoulder replacement History of excision of mass History of left knee replacement History of right breast biopsy Family History Father No problems noted. Mother Medical history unknown Maternal Grandmother Breast cancer Paternal Grandmother Breast cancer Social History Housing: House Alcohol intake: never Patient Tobacco Use Status: Never used Tobacco e-Cigarette/Vaping Use: Never Used Second Hand Smoke Exposure: No Current occupational status: retired Cognitive needs: No Hearing needs: No Vision needs: Yes Questionnaire Thrive Questionnaire Date Thrive assessed: 09/07/23 Are you currently unemployed and looking for a job?: Yes AUDIT C Alcohol Use Questionnaire (AUDIT-C) 1. How often do you have a drink containing alcohol?: Never 2. How many drinks containing alcohol do you have on a typical day when you are drinking?: 1 or 2 3. How often do you have six or more drinks on one occasion?: Never Total Score: 0 Score Reviewed/Action Taken: No AMILCAR-7 AMB Questionnaire AMILCAR-7 Date AMILCAR - 7 assessed: 09/07/23 Source: Developed by Drs. Cheko Guy, Karissa Ortiz, Hema Richter and colleagues, with an educational megan from [employer]. Review of Systems Const Denies body aches, Denies fatigue, Denies fever(s), Denies frequent falls, Denies headache(s) and Denies weakness Eyes Details: cataract surgery this year Reports no additional complaints and Denies change in vision ENT Denies dysphagia, Denies dizziness, Denies facial pain, Denies headache(s), Denies nasal congestion and Denies odynophagia Card Denies chest pain, Denies syncope, Denies irregular heart rhythm, Denies leg edema, Denies lightheadedness and Denies dyspnea Resp Denies cough and Denies dyspnea GI Denies constipation, Denies dysphagia, Denies dyspepsia, Denies diarrhea, Denies nausea, Denies odynophagia and Denies vomiting Denies urinary frequency, Denies dysuria, Denies urinary hesitancy and Denies urinary urgency Musc Details: left hip pain Denies back pain and Denies myalgias Skin/Breast Reports system reviewed and no additional complaints, except as documented Neuro Denies dizziness, Denies syncope, Denies frequent falls, Denies headache(s) and Denies weakness Psych Reports no additional complaints Endo Denies fatigue Physical exam (Primary Care) Vital Signs: Last Vital Signs Pulse 59 02/01/24 08:27 BP 140/72 H 02/01/24 08:27 Pulse Ox 97 02/01/24 08:27 Oxygen Delivery Method Room Air 02/01/24 08:27 BMI result Body Mass Index 34.5 Tobacco/Smoking Status: Tobacco use Status Tobacco use date assessed 09/07/23 02/01/24 08:29 Patient Tobacco Use Status Never used Tobacco 02/01/24 08:29 e-Cigarette/Vaping Use Never Used 02/01/24 08:29 Thrive Assessment: Date of Thrive Assessment Date Thrive assessed 09/07/23 02/01/24 08:29 Const General: cooperative, healthy appearing, comfortable and no acute distress Orientation/consciousness: patient oriented x3 HENMT Head: Yes normocephalic Ears: hearing grossly normal bilaterally General nose exam: Normal external nose present Eyes General: appearance normal, both eyes and all related structures Conjunctivae: conjunctivae normal Neck Neck: Yes full ROM and Yes no lymphadenopathy Resp Effort & Inspection: normal respiratory effort Auscultation: clear to auscultation bilaterally, no crackles, no rales, no rhonchi and no wheezes Cardio Rate: regular rate Rhythm: regular rhythm Skin General skin exam: no rashes or lesions noted Neuro General: patient oriented x3 Gait exam (Neuro): Normal gait present Extrem General: Yes normal to inspection, Yes full ROM and No edema Psych Affect: normal affect Attitude: cooperative Insight: Good insight present (Psych) Judgement: Good judgement present (Psych) Coding Level of Care Code Est Pt Level 4 (25350) Diagnoses Pre-op examination Z01.818 Hypercholesterolemia E78.00 Gastroesophageal reflux disease without esophagitis K21.9 Esophagitis presence: without esophagitis Essential hypertension I10 Hypertension type: essential hypertension Assessment & Plan Assessment & Plan (1) Pre-op examination: Code(s): Z01.818 - Encounter for other preprocedural examination Category: Medical Plan: Regarding preop clearance, the patient is at moderate risk for proposed surgery due to age however comorbidities are well managed at this time.? Reviewed with the patient that no surgery is completely free of risk and that this examination is to assist the surgeon in reviewing informed consent. Ordered for updated blood work and EKG to be completed by the patient and we will add addendum once completed. Patient is not currently on any blood thinners, NSAIDs, or antiplatelet medications. (2) Hypercholesterolemia: Code(s): E78.00 - Pure hypercholesterolemia, unspecified Category: Medical Plan: Avoid foods that are high in cholesterol such as red meat, fried foods, eggs and baked goods. Triglyceride goal of less than 150 and LDL goal of less than 100. Continue on simvastatin (3) GERD (gastroesophageal reflux disease): Code(s): K21.9 - Gastro-esophageal reflux disease without esophagitis Category: Medical Qualifiers: Esophagitis presence: without esophagitis Qualified Code(s): K21.9 - Gastro-esophageal reflux disease without esophagitis Plan: Avoid trigger foods such as citrus, tomato products, soda, caffeine, spicy foods and other foods that may be irritating to your stomach. Avoid laying flat 3-4 hours after eating and elevate the head of the bed 30 degrees to prevent acid from moving into the esophagus. (4) Hypertension: Comment: Event monitor 2018- Code(s): I10 - Essential (primary) hypertension Category: Medical Qualifiers: Hypertension type: essential hypertension Qualified Code(s): I10 - Essential (primary) hypertension Plan: Blood pressure at goal today 132/80 continue on atenolol and losartan. Plan This note was constructed using voice recognition software. While every effort has been made to ensure accuracy and customer experience analyst, still areas may have been included sometimes these areas may affect the content or meeting of the given symptoms. Total time spent caring for the patient today was 30 minutes. This includes time spent before the visit reviewing the chart, time spent during the visit, and time spent after the visit and documentation. Orders: Orders Complete Blood Count Auto Diff Today Z00.00 - Encounter for general adult medical examination without abnormal findings Comprehensive Met. Panel Today Z00.00 - Encounter for general adult medical examination without abnormal findings ECG 12 lead EKG Today Z01.818 - Encounter for other preprocedural examination
[2024-02-01 08:51] VITALS: BP 132/80
== END 2024-02-01 08:59 | disposition home or self-care (01) ==
PROVIDERS: PCP Internal Medicine
DX: Z01.818 Encounter for other preprocedural examination (principal); E78.00 Pure hypercholesterolemia, unspecified; K21.9 Gastro-esophageal reflux disease without esophagitis; I10 Essential (primary) hypertension

== ENCOUNTER → 2024-02-01 08:26 | Outpatient (BNVA) | payer MEDICARE, OTHER, SELFPAY | PROVIDERS: PCP Internal Medicine | DX: Z01.818 Encounter for other preprocedural examination (principal); E78.00 Pure hypercholesterolemia, unspecified; K21.9 Gastro-esophageal reflux disease without esophagitis; I10 Essential (primary) hypertension | CPT/HCPCS: 99212 ==

== ENCOUNTER → 2024-02-04 10:48 | Outpatient (REF) | payer MEDICARE, OTHER, SELFPAY ==
--- NOTE | 2024-02-04 11:00 | ECG_ITS ---
Test Reason : PREOP Blood Pressure : / mmHG Vent. Rate : 065 BPM Atrial Rate : 065 BPM P-R Int : 216 ms QRS Dur : 086 ms QT Int : 390 ms P-R-T Axes : 010 035 024 degrees QTc Int : 405 ms Sinus rhythm with 1st degree A-V block Otherwise normal ECG When compared with ECG of 14-SEP-2023 09:12, No significant change was found Referred By: Shayy Rodgers Electronically Signed By:ROSETTA MINOR MD
[2024-02-04 11:23] LABS: MANUAL DIFF FLAG NO
[2024-02-04 11:44] LABS: Basophils Absolute Auto 0.1 X10*3/uL (0.0-0.2); Basophils Percent Auto 1.1 % (0-2); Eosinophils Absolute Auto 0.1 X10*3/uL (0.0-0.4); Eosinophils Percent Auto 1.5 % (0-4); Hematocrit 41.1 % (37.0-47.0); Hemoglobin 13.1 g/dl (12.0-16.0); Imm Gran Abs Auto 0.02 X10*3/uL (0.00-0.03); Imm Gran Pct Auto 0.4 % (0.0-0.4); Lymphocytes Absolute Auto 1.7 X10*3/uL (1.2-4.9); Lymphocytes Percent Auto 36.5 % (20-40); Mean Corpuscular HGB Conc 31.9 g/dl (31.0-35.0); Mean Corpuscular Hemoglobin 28.6 pg (27.0-33.0); Mean Corpuscular Volume 89.7 fL (80.0-98.0); Mean Platelet Volume 8.8 fL (9.4-12.3); Monocytes Absolute Auto 0.4 X10*3/uL (0.1-1.2); Neutrophils Absolute Auto 2.4 x10*3/uL (2.0-8.3); Neutrophils Percent Auto 51.5 % (45-73); Platelet Count 286 X10*3/uL (160-400); Red Blood Count 4.58 X10*6/uL (4.20-5.50); Red Cell Distribution Width 13.6 % (11.0-16.0); White Blood Count 4.7 X10*3/uL (4.8-10.8)
[2024-02-04 12:15] LABS: Alanine Aminotransferase 65 U/L (0-31); Alkaline Phosphatase 104 U/L (39-117); Anion Gap 9 (12-20); Aspartate Amino Transferase 46 U/L (5-31); Bilirubin Total 0.8 mg/dL (0.0-1.0); Blood Urea Nitrogen 16 mg/dL (9-16); Calcium 9.4 mg/dL (8.4-10.2); Carbon Dioxide 32 mmol/L (22-29); Chloride 105 mmol/L (96-108); Estimated Glomerular Filt Rate > 60; Glucose Random 92 mg/dL (60-115); Potassium 4.3 mmol/L (3.3-5.1); Sodium 142 mmol/L (135-145); Total Protein 6.5 g/dL (6.5-8.0)
== END ==
LOC: HO.CARD 10:48
PROVIDERS: PCP Internal Medicine
DX: Z01.818 Encounter for other preprocedural examination (principal)
CPT/HCPCS: 36415; 80053; 85025; 93005

== ENCOUNTER → 2024-02-04 11:00 | Outpatient (BNV) | payer MEDICARE, OTHER, SELFPAY | PROVIDERS: PCP Internal Medicine; Visit Provider Internal Medicine Cardiovascular Disease | DX: I44.0 Atrioventricular block, first degree (principal) | CPT/HCPCS: 93010 ==

== ENCOUNTER 2024-04-10 09:20 | Outpatient (AMB) | payer MEDICARE, OTHER, SELFPAY ==
[2024-04-10 09:23] VITALS: BP 140/82; PULSE 66; O2SAT 98; BMI 36.3
--- NOTE | 2024-04-10 09:23 | A.OFFPC_ITS ---
Vital Signs 04/10/24 09:23 Height 5 ft 3 in Weight 205 lb BMI 36.3 BP 140/82 H Blood Pressure Location Lt brachial Position Sitting Pulse 66 Pulse Source Pulse Oximeter Pulse Oximetry (%) 98 Oxygen Delivery Method Room Air Intake Visit Reasons: 6wks f\u Allergies clarithromycin Allergy (Unknown, Verified 04/10/24 09:23) nausea Tobacco use date assessed: 09/07/23 Fall risk assessment: No Falls in past year Last assessed Fall Risk: 04/10/24 Dental Screening Dental Screen Date: 09/07/23 HPI 6wks f\u HPI Details Dr. Mayda Baird in [facility] march 02, 2024 The patient is a 73-year-old female presenting with a recent right hip replacement performed by Dr. Mayda aBird in [place], [place] on March 02. Postoperatively, the patient reports no longer using a cane and describes a good recovery with some residual soreness. She experienced a brief period of depression lasting three to four days post-surgery, which was described as normal. The patient's chronic conditions include fatty liver disease and a 1 cm gallbladder stone with no symptoms currently. The patient is informed to monitor for any upper abdominal pain that might indicate obstruction. The patient reports an essential tremor in her right hand, particularly noticeable when exerting pressure. 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 A history of iron deficiency anemia was noted approximately ten years ago, with symptoms including a compulsion to eat ice, although the patient currently does not report significant fatigue. Restless legs syndrome has worsened, particularly in the evenings, and the patient is on ropinirole but finds it insufficient. Suspected obstructive sleep apnea is noted due to snoring and daytime fatigue, exacerbated by low blood pressure readings post-operation, although these have since stabilized. The patient is currently on duloxetine initiated post-surgery for both depression and nerve pain. [facility] Medical History (Updated 04/10/24 @ 10:10 by Julio Keen MD) Pre-op examination Screening for colon cancer Morbid obesity with BMI of 45.0-49.9, adult Cough Screening for diabetes mellitus Upper back pain on left side Ulnar neuropathy Obesity (BMI 30-39.9) Restless leg syndrome GERD (gastroesophageal reflux disease) Hypercholesterolemia Hypertension Surgical History History of right knee joint replacement History of colonoscopy H/O shoulder replacement History of excision of mass History of left knee replacement History of right breast biopsy Family History Father No problems noted. Mother Medical history unknown Maternal Grandmother Breast cancer Paternal Grandmother Breast cancer Social History Housing: House Alcohol intake: never Patient Tobacco Use Status: Never used Tobacco Tobacco use type: Cigarette e-Cigarette/Vaping Use: Never Used Second Hand Smoke Exposure: No Current occupational status: retired Cognitive needs: No Hearing needs: No Vision needs: Yes Questionnaire PHQ-9 Over the last 2 weeks, how often have you been bothered by any of the following problems? 1. Little interest or pleasure in doing things: not at all 2. Feeling down, depressed, or hopeless: not at all 3. Trouble falling or staying asleep, or sleeping too much: not at all 4. Feeling tired or having little energy: not at all 5. Poor appetite or overeating: not at all 6. Feeling bad about yourself - or that you are a failure or have let yourself or your family down: not at all 7. Trouble concentrating on things, such as reading the newspaper or watching television: not at all 8. Moving or speaking so slowly that other people could have noticed. Or the opposite - being so fidgety or restless that you have been moving around a lot more than usual: not at all 9. Thoughts that you would be better off or of hurting yourself in some way: not at all Total score: 0 Depression Screening Interpretation: Negative Depression Screening Done: Yes 10066 - PHQ-9 Billing: Yes Source: Developed by Drs. Cheko Guy, Karissa Ortiz, Hema Richter and colleagues, with an educational megan from [employer]. Thrive Questionnaire Date Thrive assessed: 09/07/23 Are you currently unemployed and looking for a job?: Yes AUDIT C Alcohol Use Questionnaire (AUDIT-C) 1. How often do you have a drink containing alcohol?: Never 2. How many drinks containing alcohol do you have on a typical day when you are drinking?: 1 or 2 3. How often do you have six or more drinks on one occasion?: Never Total Score: 0 Score Reviewed/Action Taken: No AMILCAR-7 AMB Questionnaire AMILCAR-7 Date AMILCAR - 7 assessed: 09/07/23 Source: Developed by Drs. Cheko Guy, Karissa Ortiz, Hema Richter and colleagues, with an educational megan from [employer]. Review of Systems Const Reports as per HPI Physical exam (Primary Care) Vital Signs: Last Vital Signs Pulse 66 04/10/24 09:23 BP 140/82 H 04/10/24 09:23 Pulse Ox 98 04/10/24 09:23 Oxygen Delivery Method Room Air 04/10/24 09:23 BMI result Body Mass Index 36.3 Tobacco/Smoking Status: Tobacco use Status Tobacco use date assessed 09/07/23 04/10/24 09:28 Patient Tobacco Use Status Never used Tobacco 04/10/24 09:28 Tobacco use type Cigarette 04/10/24 09:28 e-Cigarette/Vaping Use Never Used 04/10/24 09:28 PHQ-9: PHQ-9 Score PHQ-9: Total score 0 04/10/24 09:53 Depression Screening Interpretation: Negative Thrive Assessment: Date of Thrive Assessment Date Thrive assessed 09/07/23 04/10/24 09:28 Const General: alert; No acute distress Eyes Conjunctivae: conjunctivae normal Resp Auscultation: clear to auscultation bilaterally Cardio Rate: regular rate Rhythm: regular rhythm GI Inspection: Yes normal to inspection Extrem General: Yes normal to inspection and No edema Immunizations pneumoc 20-janny conj-dip cr(PF) 0.5 mL IM syringe Performing Provider: Julio Keen MD [facility] Administered by: Deyanira Mack CMA on 04/10/24 10:10 Dose Route Admin Location Dispensed Lot Number Expiration Date [facility] Transmission Systems Operator 0.5 mL IM Left Deltoid 0.5 mL [id number] 07/25/25 6311-2714-35 WYETH/PFIZER VIS Given Date VIS Provided VIS Publication Date 04/10/24 Single Vaccine 21 Eligibility Eligibility Date Funding Source Not [facility] Eligible 04/10/24 Private Coding Level of Care Code Est Pt Level 4 (24208) Diagnoses Calculus of gallbladder without cholecystitis without obstruction K80.20 Cholelithiasis location: gallbladder Cholecystitis presence: without cholecystitis Biliary obstruction: without biliary obstruction Class 2 obesity due to excess calories without serious comorbidity with body mass index (BMI) of 36.0 to 36.9 in adult E66.812; E66.09; Z68.36 Body mass index: BMI 36.0-36.9 Obesity classification: adult class 2 (BMI 35 - 39.9) Obesity type: due to excess calories Serious obesity comorbidity presence: without serious comorbidity Primary localized osteoarthritis of left hip M16.12 Essential hypertension I10 Hypertension type: essential hypertension Hypercholesterolemia E78.00 Gastroesophageal reflux disease without esophagitis K21.9 Esophagitis presence: without esophagitis Fatty liver K76.0 Restless leg syndrome G25.81 Additional Codes PHQ-9 - 20639 - PHQ-9 Billing: Yes ([id number]) Assessment & Plan Assessment & Plan (1) Cholelithiasis: Comment: October 2022 Code(s): K80.20 - Calculus of gallbladder without cholecystitis without obstruction Category: Medical Qualifiers: Cholelithiasis location: gallbladder Cholecystitis presence: without cholecystitis Biliary obstruction: without biliary obstruction Qualified Code(s): K80.20 - Calculus of gallbladder without cholecystitis without obstruction (2) Obesity: Code(s): E66.9 - Obesity, unspecified Category: Medical Qualifiers: Body mass index: BMI 36.0-36.9 Obesity classification: adult class 2 (BMI 35 - 39.9) Obesity type: due to excess calories Serious obesity comorbidity presence: without serious comorbidity Qualified Code(s): E66.812 - Obesity, class 2; E66.09 - Other obesity due to excess calories; Z68.36 - Body mass index [BMI] 36.0-36.9, adult Plan: Diet and exercise (3) Primary localized osteoarthritis of left hip: Comment: Status post left hip replacement February 2024 [facility] Code(s): M16.12 - Unilateral primary osteoarthritis, left hip Category: Medical Plan: Patient doing good postop has been active. Patient had this done in [place] and is about to go back to [place] April 2024 (4) Hypertension: Comment: Event monitor 2017- Code(s): I10 - Essential (primary) hypertension Category: Medical Qualifiers: Hypertension type: essential hypertension Qualified Code(s): I10 - Essential (primary) hypertension Plan: Continue with blood pressure medication. Decrease salt intake and exercise continue with losartan 50 mg once a day and atenolol 25 mg twice a day (5) Hypercholesterolemia: Code(s): E78.00 - Pure hypercholesterolemia, unspecified Category: Medical Plan: Avoid fried foods, chicken skin, eggs, butter margarine, pastries and meat. Be it pork or beef they have a lot of cholesterol LDL goal of less than 130 and triglyceride of less than 150 on simvastatin 20 mg at bedtime 09/13/2023 last blood work (6) GERD (gastroesophageal reflux disease): Code(s): K21.9 - Gastro-esophageal reflux disease without esophagitis Category: Medical Qualifiers: Esophagitis presence: without esophagitis Qualified Code(s): K21.9 - Gastro-esophageal reflux disease without esophagitis Plan: Avoid the foods that causes that usually spicy foods, tomato products, juices, coffee, soda and foods that your sensitive to. After eating do not lie down, allow 3-4 hours before in lie down. And keep the head of bed above 30 degrees to avoid the acid from going up. (7) Fatty liver: Comment: BASELINE LABS 10/28/22 Plt Count 367 AST 50 H ALT 49 H Alkaline Phosphatase 128 H TSH 1.62 Free T4 1.04 12/16/22 AST 17 ALT 9 Alkaline Phosphatase 105 Hep Bs Antigen Negative Hep Bs Antibody NONREACTIVE Hep B Core Total Ab Nonreactive Hepatitis C Ab (EIA) NonreactiVE CURRENT LABS ULTRASOUND OF THE ABDOMEN 10/2022 IMPRESSION: 1. Heterogeneous hepatic echotexture, possibly reflecting hepatocellular disease. Borderline mild increase in echogenicity of the liver is characteristic of primary hepatocellular disease, possibly due to hepatic steatosis and further limits visualization. Previous exam of 2014 reported increased hepatic echotexture characteristic of fatty infiltration or hepatocellular disease. 2. Cholelithiasis. 3. Spleen measures 13.3 cm. Borderline enlarged. Limited visualization. 4. CT scan could be considered for further evaluation. Code(s): K76.0 - Fatty (change of) liver, not elsewhere classified Category: Medical Plan: Diet and exercise (8) Restless leg syndrome: Code(s): G25.81 - Restless legs syndrome Category: Medical Plan: Patient presently on ropinirole which is the highest dose. Will check for iron. Discussed about sleep as the patient has been having some problems with sleep for now due to the surgery recent. Keep well hydrated. Blood work requested Plan - Postoperative care for right hip: Continue observation of recovery progress. Report any persistent soreness or mobility issues. - Fatty liver disease: Maintain weight reduction strategies as potential improvement of liver status. - Cholelithiasis: Monitor for any abdominal pain indicating potential obstruction and avoid dietary triggers such as fatty foods. - Essential tremor: Continue current management with a beta-chloe. Monitor for symptom escalation. - Peripheral nerve damage: Symptomatic treatment and monitor for progression. - Restless legs syndrome: Evaluate current ropinirole dosage; consider additional evaluation for iron levels or sleep study if symptoms persist. - Suspected obstructive sleep apnea: Advise continuous monitoring of symptoms; consider sleep study if symptoms of apnea persist or worsen. - Health maintenance: Administer the pneumonia vaccine as planned. Ensure flu and other vaccines are up to date. Orders: Orders Complete Blood Count Auto Diff Today - Restless legs syndrome Reticulocyte Count Today - Restless legs syndrome Vitamin B12 and Folate Today - Restless legs syndrome Vitamin D 25-OH Total Today - Restless legs syndrome Comprehensive Met. Panel Today - Restless legs syndrome Ferritin Today - Restless legs syndrome IRON PROFILE Today - Restless legs syndrome Free T4 (Free Thyroxine) Today - Restless legs syndrome Thyroid Stimulating Hormone Today - Restless legs syndrome Hemoglobin A1c Today . - Restless legs syndrome Lipid Panel Today E78.00 - Pure hypercholesterolemia, unspecified, - Restless legs syndrome
--- OUTSIDE RECORDS SUMMARY | 2024-04-10 09:24 | XMS_ITS ---
Author Organization [facility] Address [address] [place] [address] Care Team Providers Care Home Day Care Provider Name Role Phone Po Julio HOOVER Primary Care Provider Cheko Putnam [phone] REASON FOR VISIT Cancel OV Encounters Encounter Location Date Provider Diagnosis [facility] [address] [place] [address] 04/16/2023 Cheko Hernandez PLAN OF TREATMENT No Information
--- OUTSIDE RECORDS SUMMARY | 2024-04-10 09:24 | XMS_ITS ---
Author Organization [facility] Address [address] [place] [address] Care Team Providers Care Mine Exploration Engineer Name Role Phone Po Julio HOOVER Primary Care Provider Cheko Putnam [phone] REASON FOR VISIT Patient presents today for a liver disease,enlarged spleen Encounters Encounter Location Date Provider Diagnosis [facility] [address] [place] [address] 04/20/2023 Cheko Hernandez PLAN OF TREATMENT No Information
--- OUTSIDE RECORDS SUMMARY | 2024-04-10 09:24 | XMS_ITS | Patient Health Record ---
Author Organization [facility] Address [address] [place], [place] [address] [place] [address] Care Team Providers Care Interpreter Translator Name Role Phone Julio Keen MD Primary Care Provider Cheko Putnam [phone] REASON FOR REFERRAL No Information MEDICATIONS Medication SIG (Take, Route, Frequency, Duration) Notes Start Date End Date Status Ibuprofen 200 MG 1 tablet with food o r milk as needed Orally Three times a day Takes 4-6 daily Active Probiotic 1 1 Orally QD Active Atenolol 25 MG 1 tablet Orally twic e a day Active Simvastatin 20 MG 1 tablet in the evening Orally Once a day Active Aspir-81 81 MG 1 tablet Orally Once a day for 30 day(s) Active Losartan Potassium 25 MG 1 tablet Orally Once a day for 30 day(s) Active Omeprazole 20 MG 1 capsule Orally Onc e a day Active Multi Vitamin/Minerals 1 1 Orally QD Active IMMUNIZATIONS Vaccine Route Administration Date Status Comme nts Influenza Unknown 09/16/2018 Refused SOCIAL HISTORY Sex Assigned At : Social History Observation Description Sex Assigned At Unknown PROBLEMS Problem Type ICD Code Onset Dates Problem Status W/U Status Risk SNOMED Code Notes Problem Epigastric abdominal pain (R10.13) Active confirmed 77343503 Problem LUQ abdominal pain (R10.12) Active confirmed 534550072 Encounters Encounter Location Date Provider Diagnosis [facility] [address] [place] [address] 04/20/2023 Cheko Hernandez [facility] [address] [place] [address] 04/16/2023 Cheko Hernandez PLAN OF TREATMENT Pending Test Test Name Order Date CT PELVIS W&WO CONTRAST 12/13/2014 Insurance Providers Payer Name Payer Address Payer Phone Subscriber Number Group Number Insured Name Patient Relationship to Insured Coverage Start Date Coverage End Date MEDICARE OF [place] [address] [place] [address] [id number] EVE YOUNG Self - patient is the insured ON LICENSE OF [facility] INDEMNITY [address] [place] [address] [id number] EVE YOUNG Self - patient is the insured MEDICAL (GENERAL) HISTORY Medical History History ICD Code HTN Denies CA,DM,CVA,Lung disease,renal dise ase H.pylori-EGD in 08/[address] Zhou--gastritis and small hiatal hernia--s/p Rx with Omeprazole/Biaxin/Amoxicillen Arthritis Colonoscopy in 08/2013-Dr. Zimmerman rris--negative except for some mild diverticulosis Colonoscopy [place] [address] Rodrigues--on ly hyperplastic polyps Hyperlipidemia Neg abd. U/S in [address] in 2014 except for hip ar thritis L>R Surgical History Surgery Date(Month/Year) shoulder replacement-right 2012 shoulder replacement-left 2014 mass removed from back--fatty tumor left knee replacement in 2016
== END 2024-04-10 10:17 | disposition home or self-care (01) ==
PROVIDERS: PCP Internal Medicine; Visit Provider Internal Medicine
DX: K80.20 Calculus of gallbladder without cholecystitis without obstruction (principal); E66.812 Obesity, class 2; E66.09 Other obesity due to excess calories; Z68.36 Body mass index [BMI] 36.0-36.9, adult; M16.12 Unilateral primary osteoarthritis, left hip; I10 Essential (primary) hypertension; E78.00 Pure hypercholesterolemia, unspecified; K21.9 Gastro-esophageal reflux disease without esophagitis; K76.0 Fatty (change of) liver, not elsewhere classified; G25.81 Restless legs syndrome; Z23 Encounter for immunization

== ENCOUNTER → 2024-04-10 09:20 | Outpatient (BNVA) | payer MEDICARE, OTHER, SELFPAY | PROVIDERS: PCP Internal Medicine; Visit Provider Internal Medicine | DX: K76.0 Fatty (change of) liver, not elsewhere classified (principal); K80.20 Calculus of gallbladder without cholecystitis without obstruction; G25.81 Restless legs syndrome; E66.812 Obesity, class 2; M16.12 Unilateral primary osteoarthritis, left hip; I10 Essential (primary) hypertension; E78.00 Pure hypercholesterolemia, unspecified; K21.9 Gastro-esophageal reflux disease without esophagitis; Z23 Encounter for immunization; Z68.36 Body mass index [BMI] 36.0-36.9, adult; Z79.899 Other long term (current) drug therapy | CPT/HCPCS: 90471; 90677; 96127; 99212 ==

== ENCOUNTER 2024-04-17 07:44 | Outpatient (REF) | payer MEDICARE, OTHER, SELFPAY ==
[2024-04-17 08:25] LABS: Eosinophils Absolute Auto 0.1 X10*3/uL (0.0-0.4); Imm Gran Abs Auto 0.02 X10*3/uL (0.00-0.03); Imm Gran Pct Auto 0.4 % (0.0-0.4); MANUAL DIFF FLAG SCAN; Monocytes Absolute Auto 0.5 X10*3/uL (0.1-1.2); Neutrophils Absolute Auto 2.5 x10*3/uL (2.0-8.3); SCAN SMEAR FLAG 1
[2024-04-17 08:28] LABS: Basophils Absolute Auto 0.1 X10*3/uL (0.0-0.2); Basophils Percent Auto 1.1 % (0-2); Eosinophils Percent Auto 2.6 % (0-4); Hematocrit 34.1 % (37.0-47.0); Hemoglobin 10.6 g/dl (12.0-16.0); Immature Retic Fraction 11.3 % (3.0-15.9); Lymphocytes Absolute Auto 2.1 X10*3/uL (1.2-4.9); Lymphocytes Percent Auto 40.1 % (20-40); Mean Corpuscular HGB Conc 31.1 g/dl (31.0-35.0); Mean Corpuscular Hemoglobin 26.1 pg (27.0-33.0); Mean Platelet Volume 9.7 fL (9.4-12.3); Monocytes Percent Auto 9.1 % (2-11); Neutrophils Percent Auto 46.7 % (45-73); Platelet Count 387 X10*3/uL (160-400); Red Blood Count 4.06 X10*6/uL (4.20-5.50); Retic HGB Equivalent 24.7 pg (30.0-35.0); Reticulocyte Percent 1.3 % (0.5-1.8); Reticulocytes Absolute 0.053 X10*6/uL (0.026-0.095); White Blood Count 5.3 X10*3/uL (4.8-10.8)
[2024-04-17 08:33] LABS: Prothrombin Time 11.2 SEC (10.9-12.4)
[2024-04-17 08:46] LABS: Estimated Average Glucose 100 mg/dL; Hemoglobin A1c % 5.1 % (<6.0)
[2024-04-17 08:47] LABS: SLIDE REVIEW VERIFIED
[2024-04-17 09:07] LABS: Alanine Aminotransferase 14 U/L (0-31); Albumin Level 3.9 g/dL (3.5-5.0); Alkaline Phosphatase 129 U/L (39-117); Anion Gap 13 (12-20); Aspartate Amino Transferase 24 U/L (5-31); Bilirubin Total 0.4 mg/dL (0.0-1.0); Blood Urea Nitrogen 14 mg/dL (9-16); Calcium 8.6 mg/dL (8.4-10.2); Carbon Dioxide 29 mmol/L (22-29); Chloride 105 mmol/L (96-108); Cholesterol 179 mg/dL (<200); Estimated Glomerular Filt Rate > 60; Glucose Random 101 mg/dL (60-115); HDL Cholesterol 62 mg/dL (>40); Iron 22 mcg/dL (30-160); LDL Cholesterol Calculated 102 mg/dL (<100); Percent Iron Saturation 7 % (15-50); Potassium 4.1 mmol/L (3.3-5.1); Sodium 143 mmol/L (135-145); Total Iron Binding Capacity 329 mcg/dL (228-428); Total Protein 6.5 g/dL (6.5-8.0); Triglycerides 79 mg/dL (<150); Unsaturated Iron Binding 307 ug/dL
[2024-04-17 09:13] LABS: Ferritin 48 ng/mL (10-250); Free T4 (Free Thyroxine) 0.99 ng/dL (0.71-1.85); Thyroid Stimulating Hormone 1.61 uIU/mL (0.32-4.0); Vitamin D 25-OH Total 38.6 ng/mL (>30)
[2024-04-17 09:24] LABS: Folate 12.6 ng/mL (> or = 4.0); Vitamin B12 260 pg/mL (200-900)
== END 2024-04-17 07:45 | disposition home or self-care (01) ==
LOC: HO.LAB 07:44
PROVIDERS: PCP Internal Medicine; Visit Provider Internal Medicine
DX: Z01.818 Encounter for other preprocedural examination (principal); G25.81 Restless legs syndrome; E78.00 Pure hypercholesterolemia, unspecified; Z79.01 Long term (current) use of anticoagulants; Z13.1 Encounter for screening for diabetes mellitus
CPT/HCPCS: 36415; 80053; 80061; 82306; 82607; 82728; 82746; 83036; 83540; 84439; 84443; 85025; 85045; 85610

== ENCOUNTER 2024-09-11 10:39 | Outpatient (REF) | payer MEDICARE, OTHER, SELFPAY ==
--- OUTSIDE RECORDS SUMMARY | 2024-09-11 11:19 | XMS_ITS | Patient Health Record ---
Author Organization [facility] Address [address] [place] [address] Care Team Providers Care Lepidopterist Name Role Phone Julio Florez MD Primary Care Provider Cheko Putnam [phone] Reason For Referral No Information Medications Medication SIG (Take, Route, Frequency, Duration) Notes [...] Multi Vitamin/Minerals 1 1 Orally QD Active Immunizations Vaccine Route Administration Date Status Comme nts Influenza Unknown 09/16/2018 Refused Problems Problem Type SNOMED Code ICD Code Onset Dates Problem Status W/U Status Risk Notes Problem [id number] Epigastric abdominal pain (R10.13) Active confirmed Problem [id number] LUQ abdominal pain (R10.12) Active confirmed Plan Of Treatment Pending Test Test Name Order Date CT PELVIS W&WO CONTRAST 12/13/2014 Insurance Providers Payer Name Payer Address Payer Phone Subscriber Number Group Number Insured Name Patient Relationship to Insured Coverage Start Date Coverage End Date MEDICARE OF [employer] [address] [place] [address] [id number] EVE YOUNG Self - patient is the insured [facility] [address] [place] [address] [id number] EVE YOUNG Self - patient is the insured Medical (General) History Medical History History ICD Code HTN Denies MO,DM,CVA,Lung disease,renal dise ase H.pylori-EGD in 08/2013 with [...]
--- OUTSIDE RECORDS SUMMARY | 2024-09-11 11:19 | XMS_ITS ---
Author Organization [facility] Address [address] [place] [address] Care Team Providers Care Motor Pool Driver Name Role Phone Po Julio HOOVER Primary Care Provider Cheko Putnam [phone] REASON FOR VISIT Cancel OV Encounters Encounter Location Date Provider Diagnosis [facility] [address] [place] [address] 04/16/2023 Cheko Hernandez Plan Of Treatment No Information Progress Notes * DOMITILA YOUNGDAVISOB:1950 (72 yo F)Acc No.[id number]:04/16/2023 Patient:?EVE YOUNG :1950???Age:72 Y???Sex:Female Address:[address] [place] [address], [place], [address] * true * Date:? Generated for Aubreei klever/Angelic/eTransmitting on:?09/11/2024 11:19 AM EDT
--- OUTSIDE RECORDS SUMMARY | 2024-09-11 11:19 | XMS_ITS | Clinical Summary ---
Author Organization [facility] Address [address] [place] [address] Care Team Providers Care Waste Machine Operator Name Role Phone Unavailable Primary Care Provider Unavailabl e Social History Tobacco Use Types Packs/Day Years Used Date Smoking Tobacco: Never Assessed Comments Unknown Sex and Gender Information Value Date Recorded Sex Assigned at Not on file Legal Sex Female 1:11 PM EST Gender Identity Not on file Sexual Orientation Not on file Plan of Treatment Health Maintenance Due Date Last Done Comments Breast Cancer Screening 1950 DTaP,Tdap,and Td Vaccines (1 - Tdap) 1968 Pneumococcal Vaccine: 50+ Ye ars (1 of 1 - PCV) 09/21/1999 Zoster Vaccines (1 of 2) 09/21/1999 COVID-19 Vaccine ( - 2023-2 5 season) 2023 RSV Immunization Adult Patie nts (1 - 1-dose 75+ series) 2024 Influenza Vaccine (Season Ended) 2024 HIB Vaccines Aged Out No longer eligi ble based on patient's age to complete this topic HPV Vaccines Aged Out No longer eligi ble based on patient's age to complete this topic Hepatitis A Vaccines Aged Out No long er eligible based on patient's age to complete this topic Hepatitis B Vaccines Aged Out No long er eligible based on patient's age to complete this topic IPV Vaccines Aged Out No longer eligi ble based on patient's age to complete this topic MMR Vaccines Aged Out No longer eligi ble based on patient's age to complete this topic Meningococcal ACWY Vaccine Aged Out N o longer eligible based on patient's age to complete this topic Meningococcal B Vaccine Aged Out No l onger eligible based on patient's age to complete this topic RSV Immunization Patients Un laith 20 months Aged Out No longer eligible b ased on patient's age to complete this topic Varicella Vaccines Aged Out No longer eligible based on patient's age to complete this topic
--- OUTSIDE RECORDS SUMMARY | 2024-09-11 11:19 | XMS_ITS ---
Author Organization [facility] Address [address] [place] [address] Care Team Providers Care Furniture Painter Name Role Phone Julio Keen MD Primary Care Provider Cheko Putnam [phone] REASON FOR VISIT Patient presents today for a liver disease,enlarged spleen Encounters Encounter Location Date Provider Diagnosis [facility] [address] [place] [address] 04/20/2023 Cheko Hernandez Plan Of Treatment No Information Progress Notes * DOMITILA YOUNGENDOB:1950 (73 yo F)Acc No.[id number]:04/20/2023 Progress Notes Patient:EVE KIMBROUGH Provider:?Cheko Hernandez MD :1950???Age:72 Y???Sex:Female D ate:04/20/2023 Address:[address] [place] [address] [id number] Pcp:Julio Keen MD Subjective: * Chief Complaints: * ???1. Patient presents today for a liver disease,enlarged spleen. * Medical History:? Objective: * Vitals:? Assessment: Plan: * Treatment: * * The named appointment provid er may or may not be the originator of this progress note, and it is not deemed complete until electronically signed by the appointment provider. Sign off status: Pending * Provider:?Cheko Hernandez MD Date:? 023 Generated for Pura ernst/Angelic/eTransmitting on:?09/11/2024 11:19 AM EDT
== END 2024-09-11 10:40 | disposition home or self-care (01) ==
LOC: HO.MAMMO 10:39
PROVIDERS: PCP Internal Medicine; Visit Provider Internal Medicine
DX: Z12.31 Encounter for screening mammogram for malignant neoplasm of breast (principal)
CPT/HCPCS: 77063; 77067

== ENCOUNTER → 2024-09-11 10:45 | Outpatient (BNV) | payer MEDICARE, OTHER, SELFPAY | PROVIDERS: PCP Internal Medicine; Visit Provider Internal Medicine | DX: Z12.31 Encounter for screening mammogram for malignant neoplasm of breast (principal) | CPT/HCPCS: 77063; 77067 ==

== ENCOUNTER 2024-09-19 09:50 | Outpatient (AMB) | payer MEDICARE, OTHER, SELFPAY ==
[2024-09-19 09:59] VITALS: BP 128/70; PULSE 62; O2SAT 98; BMI 39.0
--- NOTE | 2024-09-19 09:59 | AM.OFFVISMDC ---
Intake Vital Signs 09/19/24 09:59 Height 5 ft 3 in Weight 220 lb BMI 39.0 BP 128/70 Blood Pressure Location Lt brachial Position Sitting Pulse 62 Pulse Source Pulse Oximeter Pulse Oximetry (%) 98 Oxygen Delivery Method Room Air Intake Visit Reasons: V G0439 Allergies clarithromycin Allergy (Unknown, Verified 09/19/24 09:59) nausea Medication List - Last Reconciled 09/19/24 by Julio Keen MD atenolol 25 mg PO BID celecoxib (Celebrex) 200 mg PO DAILY gabapentin 300 mg PO BID 90 days lactobacillus combination no.4 (Probiotic) 3,000 mmu cells PO DAILY losartan 50 mg PO DAILY ropinirole 2 mg PO DAILY simvastatin 20 mg PO BEDTIME tramadol 50 mg PO BEDTIME HPI SWV G0439 HPI Details [facility] Shu Hernandez gastroenterology neurosurgeon Dr. Gael romero [facility] Medical History (Updated 09/19/24 @ 10:45 by Julio Keen MD) Pre-op examination Screening for colon cancer Morbid obesity with BMI of 45.0-49.9, adult Cough Screening for diabetes mellitus Upper back pain on left side Ulnar neuropathy Obesity (BMI 30-39.9) Restless leg syndrome GERD (gastroesophageal reflux disease) Hypercholesterolemia Hypertension Surgical History (Updated 09/19/24 @ 10:43 by Julio Keen MD) History of right knee joint replacement History of colonoscopy H/O shoulder replacement History of excision of mass History of left knee replacement History of right breast biopsy Family History (Updated 09/19/24 @ 10:52 by Julio Keen MD) Father No problems noted. Mother Medical history unknown Maternal Grandmother Breast cancer Paternal Grandmother Breast cancer Brother Adrenal cancer Social History Housing: House Alcohol intake: never Patient Tobacco Use Status: Never used Tobacco Tobacco use type: Cigarette e-Cigarette/Vaping Use: Never Used Second Hand Smoke Exposure: No Current occupational status: retired Cognitive needs: No Hearing needs: No Vision needs: Yes Questionnaire Medicare Wellness Checkup [age] What gender do you identify with?: female During the past 4 weeks, how much have you been bothered by emotional problems such as feeling anxious, depressed, irritable, sad or downhearted, and blue?: not at all During the past 4 weeks, has your physical & emotional health limited your social activities with family, friends, neighbors, or groups?: not at all During the past 4 weeks, how much bodily pain have you generally had?: mild pain During the past 4 weeks, was someone available to help you if you needed & wanted help?: yes, as much as I wanted During the past 4 weeks, what was the hardest physical activity you could do for at least 2 minutes?: light Can you get to places out of walking distance without help? (For eg., can you travel alone on buses, taxis or drive your car?): Yes Can you go shopping for groceries or clothes without someone's help?: Yes Can you prepare your own meals?: Yes Can you do your housework without help?: Yes Because of any health problems, do you need the help of another person with your personal care needs such as eating, bathing, dressing or getting around the house?: No Can you handle your own money without help?: Yes During the past 4 weeks, how would you rate your health in general?: good During the past 4 weeks how have things been going for you?: pretty well Are you having difficulties driving your car?: no Do you always fasten your seat belt when you are in a car?: yes, usually During past 4 weeks, have you been bothered by the following: never: Falling or dizzy when standing up, Sexual problems?, Trouble eating well?, Teeth or denture problems? and Problems using the telephone? and sometimes: Tiredness or fatigue? Have you fallen 2 or more times in the past year?: No Are you afraid of falling?: No Are you a smoker?: no During the past 4 weeks, how many drinks of wine, beer, or other alcoholic beverages did you have?: no alcohol at all Do you exercise for about 20 minutes 3 or more times a week?: no, I usually do not exercise this much Have you been given information to help with the following?: yes: Keeping track of your medications? and no: Hazards in your house that might hurt you? How often do you have trouble taking medicines the way you have been told to take them?: I always take medicine as prescribed How confident are you that you can control & manage most of your health problems?: very confident What is your race?: White PHQ-9 Over the last 2 weeks, how often have you been bothered by any of the following problems? 1. Little interest or pleasure in doing things: not at all 2. Feeling down, depressed, or hopeless: not at all 3. Trouble falling or staying asleep, or sleeping too much: several days 4. Feeling tired or having little energy: several days 5. Poor appetite or overeating: more than half the days 6. Feeling bad about yourself - or that you are a failure or have let yourself or your family down: not at all 7. Trouble concentrating on things, such as reading the newspaper or watching television: not at all 8. Moving or speaking so slowly that other people could have noticed. Or the opposite - being so fidgety or restless that you have been moving around a lot more than usual: not at all 9. Thoughts that you would be better off or of hurting yourself in some way: not at all Total score: 4 Depression Screening Interpretation: Positive Depression Screening Done: Yes 33800 - PHQ-9 Billing: Yes Source: Developed by Drs. Cheko Guy, Karissa Ortiz, Hema Richter and colleagues, with an educational megan from [employer]. [employer] Questionnaire Date Thrive assessed: 09/19/24 I am a: Patient What is your living situation today?: I have a steady place to live Within the past 12 months, did the food you bought not last and you didn't have the money to get more?: Never true Within the past 12 months, did you worry whether your food would run out before you got money to buy more?: Never true Do you have trouble paying for medicines?: No Do you have trouble getting transportation to medical appointments?: No Do you have trouble paying your heating and electricity bill?: No Do you have trouble taking care of your child, family member or friend?: No Do you have trouble with day-to-day activities such as bathing, preparing meals, shopping, managing finances, etc.?: No Are you currently unemployed and looking for a job?: Yes Are you interested in more education?: No Currently or been in a relationship where the following occur: No concerns reported THRIVE Score: 0 AMILCAR-7 AMB Questionnaire AMILCAR-7 Date AMILCAR - 7 assessed: 09/19/24 Feeling nervous, anxious, or on edge: 0 = Not at all Not being able to stop or control worryin = Not at all Worrying too much about different things: 0 = Not at all Trouble relaxin = Not at all Being so restless that it is hard to sit still: 0 = Not at all Becoming easily annoyed or irritable: 0 = Not at all Feeling afraid as if something awful might happen: 0 = Not at all Total AMILCAR-7 score (0-4 normal; 5-9 mild; 10-14 moderate; 15-21 severe): 0 Source: Developed by Drs. Cheko Guy, Karissa Ortiz, Hema Richter and colleagues, with an educational megan from [employer]. AMILCAR-7 Assessment Billing AMILCAR-7 Assessment Tool: AMILCAR-7 Assessment 82099 Review of Systems Const Denies poor appetite and Denies weakness Eyes Denies no additional complaints ENT Reports Normal hearing present, Denies dizziness, Denies nasal congestion, Denies tinnitus and Denies sore throat Card Denies chest pain, Denies syncope, Denies rapid heart rate and Denies dyspnea Resp Denies cough and Denies dyspnea GI Denies change in stool character, Reports constipation, Denies diarrhea, Denies nausea and Denies vomiting Denies urinary frequency, Denies difficulty voiding and Denies dysuria Neuro Reports Normal hearing present, Denies confusion, Denies dizziness, Denies syncope and Denies weakness Psych Denies confusion Physical Exam Vital Signs: Last Vital Signs Pulse 62 09/19/24 09:59 BP 128/70 09/19/24 09:59 Pulse Ox 98 09/19/24 09:59 Oxygen Delivery Method Room Air 09/19/24 09:59 BMI result Body Mass Index 39.0 Const General: No confusion Orientation/consciousness: No confusion HEENT Head: Yes normocephalic Ears: external ears normal and TM's normal bilaterally Face and sinus: Yes normal facial exam Mouth: moist mucous membranes Throat: Yes tonsils normal Eyes Conjunctivae: conjunctivae normal Pupils: Equal, round and reactive pupils present and Pupil accommodation reflex normal Direct Ophthalmoscopy: normal light reflex Neck Neck: No lymphadenopathy Thyroid: Thyroid normal Chest Chest palpation & inspection: normal inspection of the chest Resp Effort & Inspection: normal respiratory effort and no audible wheezes Auscultation: clear to auscultation bilaterally, no crackles, no wheezes and lung sounds not diminished Cardio Rate: regular rate Rhythm: regular rhythm Peripheral pulses: radial pulses present and dorsalis pedis present GI Palpation (GI): no masses Auscultation: normal bowel sounds and normoactive bowel sounds Rectal Exam - Female: deferred Skin General skin exam: no rashes or lesions noted Rashes: no rashes Neuro General: No confusion Cranial nerves: Yes Equal, round and reactive pupils present and Yes Normal hearing present Cognition (Neuro): normal cognition Gait exam (Neuro): Normal gait present Motor exam (neuro): 5/5 motor strength present throughout Deep tendon reflexes (DTR's): Right brachioradialis reflex intensity grade: 2+, Left brachioradialis reflex intensity grade: 2+, Right patellar reflex intensity grade: 2+ and Left patellar reflex intensity grade: 2+ Extrem General: No edema Assessment & Plan Assessment & Plan (1) Medicare annual wellness visit, subsequent: Code(s): Z00.00 - Encounter for general adult medical examination without abnormal findings Plan: Patient is advised to eat healthy, keep well hydrated, keep active and have adequate sleep. (2) Lumbar degenerative disc disease: Comment: May 2021, November 2022 Progressive severe levoscoliotic curvature centered at the L1-L2 level. 2. At L3-L4 there is progressive severe spinal canal stenosis with compression of the thecal sac and compression of the exiting right L3 nerve root. Bulging disc also compresses the extraforaminal left L3 nerve root. 3. At L4-L5 there is new compression of the traversing left L5 nerve root and moderate left neural foraminal stenosis. 4. At L5-S1 there is moderate left neural foraminal stenosis with mild compression of the exiting left L5 nerve root. Code(s): M51.36 - Other intervertebral disc degeneration, lumbar region Plan: Continue to follow-up with [facility] (3) Hypertension: Comment: Event monitor 2018- Code(s): I10 - Essential (primary) hypertension Qualifiers: Hypertension type: essential hypertension Qualified Code(s): I10 - Essential (primary) hypertension Plan: Continue with blood pressure medication. Decrease salt intake and exercise on atenolol losartan (4) Hypercholesterolemia: Code(s): E78.00 - Pure hypercholesterolemia, unspecified Plan: Avoid fried foods, chicken skin, eggs, butter margarine, pastries and meat. Be it pork or beef they have a lot of cholesterol on simvastatin 20 mg at bedtime (5) GERD (gastroesophageal reflux disease): Code(s): K21.9 - Gastro-esophageal reflux disease without esophagitis Qualifiers: Esophagitis presence: without esophagitis Qualified Code(s): K21.9 - Gastro-esophageal reflux disease without esophagitis Plan: Avoid the foods that causes that usually spicy foods, tomato products, juices, coffee, soda and foods that your sensitive to. After eating do not lie down, allow 3-4 hours before in lie down. And keep the head of bed above 30 degrees to avoid the acid from going up. (6) Asthma: Code(s): J45.909 - Unspecified asthma, uncomplicated Plan: Stable (7) Osteopenia: Comment: 04/2021 Code(s): M85.80 - Other specified disorders of bone density and structure, unspecified site (8) Anemia: Code(s): D64.9 - Anemia, unspecified Plan History of Present Illness The patient is a 73-year-old female presenting for an annual wellness visit and follow-up for management of her chronic conditions including obesity, hypertension, hypercholesterolemia, restless leg syndrome, and others. She reports a history of significant weight gain, and had previously completed screenings such as a colonoscopy and mammogram. Recent bloodwork indicated mild anemia and low vitamin B12, necessitating further attention. A history of a right hip replacement was noted. No new surgeries are reported since then. Health Maintenance - Mammogram latest performed in August 2024 and is up to date. - Cologuard testing last completed in August 2022. - Bone density scan in April 2021 indicated osteopenia; advised to follow-up due to increased risk. - Blood work revealed anemia and low vitamin B12 needs monitoring and intervention. - Tetanus and shingles vaccinations are up to date. Social History - No tobacco or alcohol use. - Lives with family; specifics regarding family dynamic or support not discussed. Review of Systems - Cardiovascular: Denies chest pain, reports adequate blood pressure control. - Respiratory: Denies shortness of breath. - Gastrointestinal: Reports no issues with bowel movements or swallowing; denies nausea or vomiting. - Genitourinary: Denies dysuria; reports increased frequency at night but manageable. - Musculoskeletal: Reports previous right hip replacement; no new swelling or edema noted. - Neurological: Denies dizziness or syncope. - Hematologic: Reports anemia. - General: Denies recent infections or fever. Physical Exam General: Cooperative, healthy appearing, comfortable, no acute distress and well developed Orientation: Patient oriented x3 Limitations: No limitations Head: Normal to inspection Ears: Hearing grossly normal bilaterally Nose: Normal external nose present Face and sinus: Normal facial exam Eyes: Appearance normal, both eyes and all related structures Neck: Normal visual inspection and Yes full ROM Respiratory: Normal respiratory effort and able to speak in complete sentences. Clear to auscultation bilaterally Cardiovascular: Regular rate and rhythm. Normal S1 and S2 GI: Normal to inspection. Soft to palpation and nontender Skin: No rashes or lesions noted Neuro: Patient oriented x3 Extremities: Normal to inspection, but noted swelling in the right leg, possibly due to circulation issues. Results - Labs: Anemia (Hemoglobin 10.6, Hematocrit 34.1), normal electrolytes, LDL 102, low B12. - Tests: Bone density titled osteopenia in April 2021. Plan Management continues for the patient?s established conditions, focusing on medication adherence for hypertension and cholesterol. Follow-up monitoring of her anemia and levels is planned with potential supplementation. Osteopenia will be monitored via ongoing bone density assessments. Emphasis was placed on continuing routine screenings such as mammograms and discussing the necessity for potential follow-up bone density tests. There were conversations about maintaining a healthy diet, possibly incorporating more vitamins, and increasing physical activity, also noting a recent hip replacement. Encouraged the use of refine lifestyle modifications to address urinary frequency. Health proxy discussions were initiated. Patient was informed and verbally consented to the use of an ambient scribe for clinic note documentation during this visit. Discussion Notes I reviewed with the patient the current status of her chronic conditions, emphasizing the importance of consistent medication adherence particularly with her blood pressure and cholesterol medications. For her anemia and low B12, supplementation along with monitoring through follow-up labs was discussed. Osteopenia treatment options and preventative strategies were addressed, including possible future screenings. We discussed the management of GERD and strategies to alleviate symptoms. The conversation also covered health maintenance topics, such as weight management, physical activity, and nutrition, especially post-hip replacement recovery and generalized joint health. I explained the potential utility of healthcare proxy forms and their availability in our office. Advised her to seek immediate care should she experience any new, unexplained symptoms. Patient Instructions - Continue taking prescribed blood pressure and cholesterol medications. - Begin vitamin B12 supplements as advised. - Monitor for changes in weight and dietary intake. - Schedule a follow-up for bone density testing and blood work. - Maintain regular physical activity and healthy diet. - Return to clinic if experiencing new or worsening symptoms. - Ensure completion of paperwork for healthcare proxy. - Schedule and attend any follow-up visits or screenings as advised. Orders: Orders Complete Blood Count Auto Diff Today D64.9 - Anemia, unspecified Comprehensive Met. Panel Today D64.9 - Anemia, unspecified Reticulocyte Count Today D64.9 - Anemia, unspecified IRON PROFILE Today D64.9 - Anemia, unspecified Ferritin Today D64.9 - Anemia, unspecified Vitamin D 25-OH Total Today D64.9 - Anemia, unspecified Lipid Panel Today D64.9 - Anemia, unspecified, E78.00 - Pure hypercholesterolemia, unspecified Parietal Cell Antibody Today K21.9 - Gastro-esophageal reflux disease without esophagitis XR DEXA axial skeleton Today M81.0 - Age-related osteoporosis without current pathological fracture, M85.80 - Other specified disorders of bone density and structure, unspecified site Thyroid Stimulating Hormone Today D64.9 - Anemia, unspecified Free T4 (Free Thyroxine) Today D64.9 - Anemia, unspecified Vitamin B12 and Folate Today D64.9 - Anemia, unspecified Intrinsic Factor Antibodies Today K21.9 - Gastro-esophageal reflux disease without esophagitis Quality Reporting (2019) Depression/Bipolar (159/160/161/177) PHQ-9: Total score: 4 Coding Level of Care Code Medicare Subsequent (G0439) Diagnoses Medicare annual wellness visit, subsequent Z00.00 Lumbar degenerative disc disease M51.36 Essential hypertension I10 Hypertension type: essential hypertension Hypercholesterolemia E78.00 Gastroesophageal reflux disease without esophagitis K21.9 Esophagitis presence: without esophagitis Asthma J45.909 Osteopenia M85.80 Anemia D64.9 Additional Codes AMILCAR-7 Assessment Billing - AMILCAR-7 Assessment Tool: AMILCAR-7 Assessment 46658 ([id number]) PHQ-9 - 44872 - PHQ-9 Billing: Yes ([id number])
--- OUTSIDE RECORDS SUMMARY | 2024-09-19 10:28 | XMS_ITS ---
Author Organization [facility] Address [address] [place] [address] Care Team Providers Care Vba Developer Name Role Phone Julio Keen MD Primary Care Provider Cheko Putnam [phone] REASON FOR VISIT Patient presents today for a liver disease,enlarged spleen Encounters Encounter Location Date Provider Diagnosis [facility] [address] [place] [address] 04/20/2023 Cheko Hernandez Plan Of Treatment No Information Progress Notes * DOMITILA YOUNGENDOB:1950 (73 yo F)Acc No.[id number]:04/20/2023 Progress Notes Patient:EVE KIMBROUGH Provider:?Cheko Hernandez MD :1950???Age:72 Y???Sex:Female D ate:04/20/2023 Address:[address] [place] [address] [id number] Pcp:Julio Keen MD Subjective: * Chief Complaints: [...] MD Date:? 023 Generated for Pura ernst/Angelic/eTransmitting on:?09/19/2024 10:28 AM EDT
== END 2024-09-19 10:59 | disposition home or self-care (01) ==
LOC: HO.HMCH 09:51
PROVIDERS: PCP Internal Medicine; Visit Provider Internal Medicine
DX: Z00.00 Encounter for general adult medical examination without abnormal findings (principal); M51.369 Other intervertebral disc degeneration, lumbar region without mention of lumbar back pain or lower extremity pain; I10 Essential (primary) hypertension; E78.00 Pure hypercholesterolemia, unspecified; K21.9 Gastro-esophageal reflux disease without esophagitis; J45.909 Unspecified asthma, uncomplicated; M85.80 Other specified disorders of bone density and structure, unspecified site; D64.9 Anemia, unspecified

== ENCOUNTER → 2024-09-19 09:50 | Outpatient (BNVA) | payer MEDICARE, OTHER, SELFPAY | PROVIDERS: PCP Internal Medicine; Visit Provider Internal Medicine | DX: Z00.00 Encounter for general adult medical examination without abnormal findings (principal); E78.00 Pure hypercholesterolemia, unspecified; I10 Essential (primary) hypertension; K21.9 Gastro-esophageal reflux disease without esophagitis; J45.909 Unspecified asthma, uncomplicated; M85.80 Other specified disorders of bone density and structure, unspecified site; D64.9 Anemia, unspecified | CPT/HCPCS: 96127 ==

== ENCOUNTER 2024-09-20 09:37 | Outpatient (REF) | payer MEDICARE, OTHER, SELFPAY ==
[2024-09-20 09:56] LABS: MANUAL DIFF FLAG NO
--- OUTSIDE RECORDS SUMMARY | 2024-09-20 10:20 | XMS_ITS ---
Author Organization [facility] Address [address] [place] [address] Care Team Providers Care Insurance Special Agent Name Role Phone Julio Keen MD Primary Care Provider Cheko Putnam [phone] REASON FOR VISIT Patient presents today for a liver disease,enlarged spleen Encounters Encounter Location Date Provider Diagnosis [facility] [address] [place] [address] 04/20/2023 Cheko Hernandez Plan Of Treatment No Information Progress Notes * DOMITILA YOUNGENDOB:1950 (74 yo F)Acc No.[id number]:04/20/2023 Progress Notes Patient:EVE KIMBROUGH Provider:?Cheko Hernandez MD :1950???Age:72 Y???Sex:Female D ate:04/20/2023 Address:[address] [place] [address] [id number] Pcp:Julio Keen MD Subjective: * Chief Complaints: [...] MD Date:? 023 Generated for Pura ernst/Angelic/eTransmitting on:?2024 10:19 AM EDT
[2024-09-20 10:48] LABS: Basophils Absolute Auto 0.1 X10*3/uL (0.0-0.2); Basophils Percent Auto 1.1 % (0-2); Eosinophils Absolute Auto 0.1 X10*3/uL (0.0-0.4); Eosinophils Percent Auto 2.1 % (0-4); Hematocrit 38.8 % (37.0-47.0); Hemoglobin 12.4 g/dl (12.0-16.0); Imm Gran Abs Auto 0.02 X10*3/uL (0.00-0.03); Imm Gran Pct Auto 0.4 % (0.0-0.4); Lymphocytes Absolute Auto 1.9 X10*3/uL (1.2-4.9); Lymphocytes Percent Auto 36.4 % (20-40); Mean Corpuscular Hemoglobin 28.4 pg (27.0-33.0); Mean Corpuscular Volume 88.8 fL (80.0-98.0); Mean Platelet Volume 9.8 fL (9.4-12.3); Monocytes Absolute Auto 0.5 X10*3/uL (0.1-1.2); Neutrophils Absolute Auto 2.7 x10*3/uL (2.0-8.3); Platelet Count 295 X10*3/uL (160-400); Red Blood Count 4.37 X10*6/uL (4.20-5.50); Red Cell Distribution Width 13.7 % (11.0-16.0); Retic HGB Equivalent 31.9 pg (30.0-35.0); Reticulocyte Percent 1.2 % (0.5-1.8); Reticulocytes Absolute 0.051 X10*6/uL (0.026-0.095); White Blood Count 5.3 X10*3/uL (4.8-10.8)
[2024-09-20 11:32] LABS: Alanine Aminotransferase 25 U/L (0-31); Albumin Level 4.1 g/dL (3.5-5.0); Alkaline Phosphatase 106 U/L (39-117); Anion Gap 10 (12-20); Aspartate Amino Transferase 25 U/L (5-31); Bilirubin Total 0.9 mg/dL (0.0-1.0); Blood Urea Nitrogen 19 mg/dL (9-16); Calcium 9.4 mg/dL (8.4-10.2); Carbon Dioxide 29 mmol/L (22-29); Chloride 107 mmol/L (96-108); Cholesterol 173 mg/dL (<200); Estimated Glomerular Filt Rate > 60; Glucose Random 94 mg/dL (60-115); HDL Cholesterol 58 mg/dL (>40); Iron 99 mcg/dL (30-160); LDL Cholesterol Calculated 94 mg/dL (<100); Percent Iron Saturation 31 % (15-50); Sodium 142 mmol/L (135-145); Total Iron Binding Capacity 323 mcg/dL (228-428); Total Protein 6.3 g/dL (6.5-8.0); Triglycerides 109 mg/dL (<150); Unsaturated Iron Binding 224 ug/dL
[2024-09-20 12:00] LABS: Ferritin 46 ng/mL (10-250); Free T4 (Free Thyroxine) 0.95 ng/dL (0.71-1.85); Thyroid Stimulating Hormone 1.83 uIU/mL (0.32-4.0); Vitamin D 25-OH Total 36.3 ng/mL (>30)
[2024-09-20 12:05] LABS: Vitamin B12 298 pg/mL (200-900)
[2024-09-23 14:19] LABS: Parietal Cell Antibody <=20.0 Unit (<=20.0)
[2024-09-23 20:33] LABS: Intrinsic Factor Antibodies Negative (Negative)
== END 2024-09-20 09:38 | disposition home or self-care (01) ==
LOC: HO.LAB 09:37
PROVIDERS: PCP Internal Medicine; Visit Provider Internal Medicine
DX: D64.9 Anemia, unspecified (principal); K21.9 Gastro-esophageal reflux disease without esophagitis; E78.00 Pure hypercholesterolemia, unspecified
CPT/HCPCS: 36415; 80053; 80061; 82306; 82607; 82728; 82746; 83516; 83540; 84439; 84443; 85025; 85045; 86340

== ENCOUNTER 2024-10-03 11:14 | Outpatient (REF) | payer MEDICARE, OTHER, SELFPAY ==
--- NOTE | ~2024-10-03 | MM_ITS ---
EXAMINATION: DXA BONE DENSITY AXIAL HISTORY: M81.0 - Age-related osteoporosis without current pathological fracture TECHNIQUE: [employer] Dual energy absorptiometry (DEXA) of the lumbar spine and distal radius was performed. The hips were not evaluated due to a history of bilateral total hip arthroplasty. COMPARISON: Comparison is made with the prior examination dated 05/01/2021. FINDINGS: The bone mineral density of the lumbar spine is 1.097, corresponding to a T-score of -0.6, and a Z-score of 0.0. This is indicative of normal bone mineral density. This represents a BMD change of 8.7% compared to the prior exam. This is statistically significant. The bone mineral density of the distal radius is 0.899, corresponding to a T-score of 0.3, and a Z-score of 2.5. This is indicative of normal bone mineral density. MM/XR DEXA axial skeleton IMPRESSION: Based on bone mineral density, and according to World Health Organization (WHO) criteria, the diagnosis is consistent with normal bone mineral density. All bone density values are in grams per centimeter squared (g/cm2). Statistically, 68% of repeat scans fall within 1 SD (+/- 0.010 g/cm2 for AP spine L1-L4) and 1 SD (+/- 0.012 g/cm2 for femur total) FRAX is a trademark of the [employer]'s [employer], a World Health Organization (WHO) Collaborating Center. Electronically signed by: Cheko Toussaint MD 10/03/2024 12:45 PM EDT
--- OUTSIDE RECORDS SUMMARY | 2024-10-03 13:31 | XMS_ITS ---
Author Organization [facility] Address [address] [place] [address] Care Team Providers Care Machine Ironer Name Role Phone Julio Keen MD Primary Care Provider Cheko Putnam [phone] REASON FOR VISIT Patient presents today for a liver disease,enlarged spleen Encounters Encounter Location Date Provider Diagnosis [facility] [address] [place] [address] 04/20/2023 Cheko Hernandez Plan Of Treatment No Information Progress Notes * DOMITILA YOUNGENDOB:1950 (74 yo F)Acc No.[id number]:04/20/2023 Progress Notes Patient:EVE KIMBROUGH Provider:?Cheko Hernandez MD :1950???Age:72 Y???Sex:Female D ate:04/20/2023 Address:[address] [place] [address] [facility] Pcp:Julio Keen MD Subjective: * Chief Complaints: [...] MD Date:? 023 Generated for Pura ernst/Angelic/eTransmitting on:?10/03/2024 01:31 PM EDT
== END 2024-10-03 11:15 | disposition home or self-care (01) ==
LOC: HO.MAMMO 11:14
PROVIDERS: PCP Internal Medicine; Visit Provider Internal Medicine
DX: M81.0 Age-related osteoporosis without current pathological fracture (principal); M85.80 Other specified disorders of bone density and structure, unspecified site
CPT/HCPCS: 77080

== ENCOUNTER → 2024-10-03 11:30 | Outpatient (BNV) | payer MEDICARE, OTHER, SELFPAY | PROVIDERS: PCP Internal Medicine; Visit Provider Radiology Diagnostic Radiology | DX: E28.39 Other primary ovarian failure (principal) | CPT/HCPCS: 77080 ==

== ENCOUNTER 2025-04-09 09:20 | Outpatient (AMB) | payer MEDICARE, OTHER, SELFPAY ==
--- NOTE | 2025-04-09 09:31 | A.OFFPC_ITS ---
Vital Signs 04/09/25 09:33 04/09/25 09:53 Height 5 ft 3 in Weight 233 lb 4 oz BMI 41.3 BP 148/68 H 122/70 Blood Pressure Location Lt brachial Position Sitting Respiration 16 Pulse 75 Pulse Source Pulse Oximeter Temp 97.1 F Temp Source Temporal Artery Scan Pulse Oximetry (%) 99 Oxygen Delivery Method Room Air Intake Visit Reasons: cholesterol, HTN Senior Caregiver Required: No Accompanied by: Self / Same As Patient Allergies clarithromycin Allergy (Unknown, Verified 04/09/25 09:31) nausea Medication List - Last Reconciled 04/09/25 by Julio Keen MD atenolol 25 mg PO BID celecoxib (Celebrex) 200 mg PO DAILY gabapentin 300 mg PO BID 90 days lactobacillus combination no.4 (Probiotic) 3,000 mmu cells PO DAILY losartan 50 mg PO DAILY ropinirole 2 mg PO DAILY simvastatin 20 mg PO BEDTIME tirzepatide (weight loss) (Zepbound) 2.5 mg (0.5 mL) subcut QWEEK tramadol 50 mg PO BEDTIME Tobacco use date assessed: 04/09/25 Fall risk assessment: No Falls in past year Last assessed Fall Risk: 04/09/25 Dental Screening Dental Screen Date: 04/09/25 Did you have a dental visit in the last 12 months?: Yes Did you have a dental problem in the last 6 months where you did not have access to dental care?: No Was dental information given to patient?: Patient has dentist HPI cholesterol, HTN HPI Details wakes up snorng, sleepy, afternoon nap, R leg swelling HPI Comments History of Present Illness Details History of Present Illness The patient is a 74-year-old female presenting for a follow-up visit for management of chronic conditions and new concerns. Her medical history is significant for morbid obesity, hypertension, hypercholesterolemia, GERD, and lumbar degenerative disc disease with hepatic stenosis. She has experienced a 13-pound weight gain. For her lower back pain, she follows with [facility] and has received a left sacroiliac joint injection with lateral branch blocks in December 2024 and right-sided injections in January 2025, with reported improvement. There was a discussion about a possible future ablation. The patient reports new concerns for sleep apnea, as she wakes herself up snoring and has episodes of apnea while relaxing at night. She also reports feeling tired during the day and takes afternoon naps. Additionally, she reports a third episode of her right leg swelling, which has previously only occurred in [place]. Two prior episodes were evaluated with ultrasounds, which were negative for deep vein thrombosis. Her last lab work in August 2024 showed a normal blood count with resolved anemia, normal electrolytes, good renal and liver function, normal sugar, and sufficient iron. Her LDL cholesterol was 94 mg/dL, and her thyroid and folic acid levels were normal. Her vitamin B12 was mildly low at 298, previously 260. Medications include atenolol 25 mg twice a day and losartan 50 mg daily for hypertension, and simvastatin 20 mg at bedtime for cholesterol. She previously used a weight loss medication with good results but stopped due to a change in Medicare coverage. Health Maintenance - Her last Cologuard test was in August. - Her last mammogram was in August 2024. - A bone density scan in September 2024 showe d normal bone mineral density. - She has recently received the COVID an d flu vaccines. - She reports being up to date on her sh ingles vaccine. - She was advised to continue diet and e xercise. Social History - The patient travels between [facility]. - She was advised on diet and exercise. - She reports going to bed late, around 2 or 3 in the morning, and taking afternoon naps. - She reports a history of pica, specifi hina eating ice, which has resolved. Results - Labs from August 2024: - CBC: Normal, no anemia. - CMP: Normal electrolytes, good renal a nd liver function. - Lipid panel: LDL 94 mg/dL. - Vitamin B12: Mildly low at 298. - Thyroid function: Normal. - Folic acid: Normal. - Iron: Sufficient. - Procedures: - Cologuard (August 2022): Negative. - Mammogram (August 2024): Up to date. - Bone density scan (September 2024): Normal bone mineral density. [facility] Medical History (Updated 04/09/25 @ 09:57 by Julio Keen MD) LFT elevation Morbid obesity with BMI of 45.0-49.9, adult Pre-op examination Screening for colon cancer Cough Screening for diabetes mellitus Upper back pain on left side Ulnar neuropathy Obesity (BMI 30-39.9) Restless leg syndrome GERD (gastroesophageal reflux disease) Hypercholesterolemia Hypertension Surgical History (Updated 09/19/24 @ 10:43 by Julio Keen MD) History of right knee joint replacement History of colonoscopy H/O shoulder replacement History of excision of mass History of left knee replacement History of right breast biopsy Family History (Updated 09/19/24 @ 10:52 by Julio Keen MD) Father No problems noted. Mother Medical history unknown Maternal Grandmother Breast cancer Paternal Grandmother Breast cancer Brother Adrenal cancer Social History Housing: House Alcohol intake: never Patient Tobacco Use Status: Never used Tobacco e-Cigarette/Vaping Use: Never Used Second Hand Smoke Exposure: No service: No Current occupational status: retired Cognitive needs: No Hearing needs: No Vision needs: No (Cataract's 2023) Questionnaire PHQ-9 Over the last 2 weeks, how often have you been bothered by any of the following problems? 1. Little interest or pleasure in doing things: not at all 2. Feeling down, depressed, or hopeless: not at all 3. Trouble falling or staying asleep, or sleeping too much: several days 4. Feeling tired or having little energy: several days 5. Poor appetite or overeating: not at all 6. Feeling bad about yourself - or that you are a failure or have let yourself or your family down: not at all 7. Trouble concentrating on things, such as reading the newspaper or watching television: not at all 8. Moving or speaking so slowly that other people could have noticed. Or the opposite - being so fidgety or restless that you have been moving around a lot more than usual: not at all 9. Thoughts that you would be better off or of hurting yourself in some way: not at all Total score: 2 Source: Developed by Drs. Cheko Guy, Karissa Ortiz, Hema Richter and colleagues, with an educational megan from [employer]. Thrive Questionnaire Date Thrive assessed: 09/19/24 I am a: Patient What is your living situation today?: I have a steady place to live Within the past 12 months, did the food you bought not last and you didn't have the money to get more?: Never true Within the past 12 months, did you worry whether your food would run out before you got money to buy more?: Never true Do you have trouble paying for medicines?: No Do you have trouble getting transportation to medical appointments?: No Do you have trouble paying your heating and electricity bill?: No Do you have trouble taking care of your child, family member or friend?: No Do you have trouble with day-to-day activities such as bathing, preparing meals, shopping, managing finances, etc.?: No Are you currently unemployed and looking for a job?: No Are you interested in more education?: No Please select the resources that you would like help with: None Currently or been in a relationship where the following occur: No concerns reported THRIVE Score: 0 AUDIT C Alcohol Use Questionnaire (AUDIT-C) 1. How often do you have a drink containing alcohol?: Never Total Score: 0 AMILCAR-7 AMB Questionnaire AMILCAR-7 Date AMILCAR - 7 assessed: 09/19/24 Feeling nervous, anxious, or on edge: 0 = Not at all Not being able to stop or control worryin = Not at all Worrying too much about different things: 0 = Not at all Trouble relaxin = Not at all Being so restless that it is hard to sit still: 0 = Not at all Becoming easily annoyed or irritable: 0 = Not at all Feeling afraid as if something awful might happen: 0 = Not at all Total AMILCAR-7 score (0-4 normal; 5-9 mild; 10-14 moderate; 15-21 severe): 0 Source: Developed by Drs. Cheko Guy, Karissa Ortiz, Hema Richter and colleagues, with an educational megan from [employer]. Review of Systems Narrative Review of Systems - General: Reports feeling tired during the day. - Respiratory: Reports waking up snoring and episodes of apnea while relaxed. - Cardiovascular: Reports recurrent right leg swelling. - Gastrointestinal: Reports bowel movements are good. - Musculoskeletal: Reports improvement in low back pain after injections. - Skin: Reports recent issue with bruising terribly. Physical exam (Primary Care) Vital Signs: Last Vital Signs Temp 97.1 F 04/09/25 09:33 Pulse 75 04/09/25 09:33 Resp 16 04/09/25 09:33 BP 122/70 04/09/25 09:53 Pulse Ox 99 04/09/25 09:33 Oxygen Delivery Method Room Air 04/09/25 09:33 BMI result Body Mass Index 41.3 Tobacco/Smoking Status: Tobacco use Status Tobacco use date assessed 04/09/25 04/09/25 09:38 Patient Tobacco Use Status Never used Tobacco 04/09/25 09:38 Tobacco use type 04/09/25 09:38 e-Cigarette/Vaping Use Never Used 04/09/25 09:38 PHQ-9: PHQ-9 Score PHQ-9: Total score 2 04/09/25 09:53 Thrive Assessment: Date of Thrive Assessment Date Thrive assessed 09/19/24 04/09/25 09:38 Currently or been in a relationship where the following occur: No concerns reported Narrative Physical Exam - Vitals: Blood pressure 122/70 mmHg. - Lungs: Clear on auscultation. Const General: alert; No acute distress Eyes Conjunctivae: conjunctivae normal Resp Auscultation: clear to auscultation bilaterally Cardio Rate: regular rate Rhythm: regular rhythm GI Inspection: Yes normal to inspection Extrem General: Yes normal to inspection and No edema Coding Level of Care Code Est Pt Level 4 (76084) Add On Problem Visit Only Diagnoses Essential hypertension I10 Hypertension type: essential hypertension Hypercholesterolemia E78.00 Osteopenia M85.80 Morbid obesity E66.01 Gastroesophageal reflux disease without esophagitis K21.9 Esophagitis presence: without esophagitis Fatty liver K76.0 Anemia D64.9 Sacroiliac joint dysfunction of right side M53.3 Asthma J45.909 Right leg swelling M79.89 Hypersomnia G47.10 Assessment & Plan Assessment & Plan (1) Hypertension: Comment: Event monitor 2018- Code(s): I10 - Essential (primary) hypertension Category: Medical Qualifiers: Hypertension type: essential hypertension Qualified Code(s): I10 - Essential (primary) hypertension Plan: Continue with blood pressure medication. Decrease salt intake and exercise patient on atenolol 25 mg twice a day losartan 50 mg once a day (2) Hypercholesterolemia: Code(s): E78.00 - Pure hypercholesterolemia, unspecified Category: Medical Plan: Avoid fried foods, chicken skin, eggs, butter margarine, pastries and meat. Be it pork or beef they have a lot of cholesterol LDL goal of less than 130 and triglyceride of less than 150 on simvastatin 20 mg at bedtime (3) Osteopenia: Comment: 04/2021, September 2024 normal Code(s): M85.80 - Other specified disorders of bone density and structure, unspecified site Category: Medical Plan: Up-to-date with bone density September 2024 (4) Morbid obesity: Code(s): E66.01 - Morbid (severe) obesity due to excess calories Category: Medical Plan: Diet and exercise (5) GERD (gastroesophageal reflux disease): Code(s): K21.9 - Gastro-esophageal reflux disease without esophagitis Category: Medical Qualifiers: Esophagitis presence: without esophagitis Qualified Code(s): K21.9 - Gastro-esophageal reflux disease without esophagitis Plan: Avoid the foods that causes that usually spicy foods, tomato products, juices, coffee, soda and foods that your sensitive to. After eating do not lie down, allow 3-4 hours before in lie down. And keep the head of bed above 30 degrees to avoid the acid from going up. (6) Fatty liver: Comment: BASELINE LABS 10/28/22 Plt Count 367 AST 50 H ALT 49 H Alkaline Phosphatase 128 H TSH 1.62 Free T4 1.04 12/16/22 AST 17 ALT 9 Alkaline Phosphatase 105 Hep Bs Antigen Negative Hep Bs Antibody NONREACTIVE Hep B Core Total Ab Nonreactive Hepatitis C Ab (EIA) NonreactiVE CURRENT LABS ULTRASOUND OF THE ABDOMEN 10/2022 IMPRESSION: 1. Heterogeneous hepatic echotexture, possibly reflecting hepatocellular disease. Borderline mild increase in echogenicity of the liver is characteristic of primary hepatocellular disease, possibly due to hepatic steatosis and further limits visualization. Previous exam of 2014 reported increased hepatic echotexture characteristic of fatty infiltration or hepatocellular disease. 2. Cholelithiasis. 3. Spleen measures 13.3 cm. Borderline enlarged. Limited visualization. 4. CT scan could be considered for further evaluation. Code(s): K76.0 - Fatty (change of) liver, not elsewhere classified Category: Medical Plan: Low-fat diet and exercise (7) Anemia: Code(s): D64.9 - Anemia, unspecified Category: Medical Plan: Resolved (8) Sacroiliac joint dysfunction of right side: Comment: 01/03/2024 right sacroiliitis right intra-articular sacroiliac joint injection under fluoroscopic guidance Dr. Xiong left intra-articular sacroiliac joint in injection under fluoroscopic guidance left S1-2 S3 lateral branch block. December 2024 Dr. Xiong Code(s): M53.3 - Sacrococcygeal disorders, not elsewhere classified Category: Medical Plan: Patient follows up with [facility] and has had injections done (9) Asthma: Code(s): J45.909 - Unspecified asthma, uncomplicated Category: Medical Plan: Stable (10) Right leg swelling: Code(s): M79.89 - Other specified soft tissue disorders Category: Medical (11) Hypersomnia: Code(s): G47.10 - Hypersomnia, unspecified Category: Medical Plan Plan Patient was informed and verbally consented to the use of an ambient scribe for clinic note documentation during this visit. 1. Morbid Obesity The patient has gained 13 pounds and expressed interest in restarting weight loss medication. She was previously on a medication that was effective, but it was discontinued due to Medicare coverage changes. A one-month supply of a weight loss medication will be sent to [facility]. The patient was counseled on diet, exercise, and hydration. 2. Hypertension The patient's blood pressure is well-controlled at 122/70 mmHg on her current regimen of atenolol 25 mg twice daily and losartan 50 mg once daily. She denies checking her blood pressure at home. No medication changes were made, and she does not require prescription refills at this time. 3. Hypercholesterolemia Her cholesterol is well-managed, with a recent LDL of 94 mg/dL on simvastatin 20 mg at bedtime. The LDL goal is less than 130 mg/dL, which she meets. No medication changes are needed. 4. Lumbar Degenerative Disc Disease She continues to follow with [facility] for her back pain. She has had recent left and right sacroiliac joint injections, which have provided relief. A future ablation procedure is being considered. 5. Suspected Sleep Apnea The patient reports symptoms suggestive of sleep apnea, including waking herself up snoring, apneic episodes, daytime fatigue, and napping. A referral for a home sleep study will be placed. The patient will be contacted to receive the equipment to use at home. 6. Unilateral Leg Swelling The patient reported a third episode of recurrent, isolated right leg swelling. Previous episodes evaluated with ultrasound were negative for DVT. Differential diagnoses discussed include medication side effects, DVT, and congestive heart failure. Additional blood work, including a D-dimer and a test for heart jinny lure, will be ordered to further evaluate. 7. Vitamin B12 Deficiency The patient has a mildly low vitamin B12 level of 298. The benefits of vitamin B12 for nerve growth and hematopoiesis were discussed, and supplementation was recommended. 8. Follow-Up The patient will follow up in August, which is approximately 6 months from now. Discussion Notes I discussed several concerns with the patient today. Regarding her new symptoms of snoring and apneic episodes, I explained that we would arrange a home sleep study to evaluate for sleep apnea. I described the process of the home test, which involves using a nasal cannula, finger monitor, and chest strap overnight. For the recurrent right leg swelling, I acknowledged her concern, especially since two prior ultrasounds were negative for blood clots. We discussed ordering blood tests, including a D-dimer to assess for hypercoagulability and another test to rule out congestive heart failure as potential causes. I reviewed her recent lab work, noting that her cholesterol and blood counts are good, but her vitamin B12 is mildly low. I recommended she take a vitamin B12 supplement, explaining its importance for nerve growth and blood production. We discussed her interest in weight loss, and I agreed to resubmit a prescription for a weight loss medication she had success with previously. I explained the contraindications, which include a personal history of thyroid cancer, though I noted it is rare. I instructed her to contact me after three weeks to determine the next steps for dosing. I advised her to continue healthy lifestyle habits, including drinking enough water, eating well, and trying to stay active. We agreed on a follow-up appointment in six months, in August. Patient Instructions - You will be contacted about scheduling a sleep study to do at home. - We will be ordering additional blood work to investigate the cause of your leg swelling. - Please begin taking an [id number] vitamin B12 supplement as your level is mildly low. - I am sending a prescription for a weight loss medication to your pharmacy, [facility]. - Please contact our office after three weeks on the new medication to let us know how you are doing so we can adjust the dose if needed. - Continue to eat a healthy diet, drink plenty of water, and stay as active as possible. - Your next follow-up appointment will be in about six months, in August. Orders: Orders RT home sleep study Today G47.10 - Hypersomnia, unspecified NT Pro B Type Natriuretic Pept Today M79.89 - Other specified soft tissue disorders Complete Blood Count Auto Diff Today M79.89 - Other specified soft tissue disorders D Dimer High Sensitivity Today M79.89 - Other specified soft tissue disorders Medications: New tirzepatide (weight loss) (Zepbound) for 4 weeks 2.5 mg (0.5 mL) subcut QWEEK 2 mL 2RF E66.01 - Morbid (severe) obesity due to excess calories
[2025-04-09 09:33] VITALS: BP 148/68; PULSE 75; RESP 16; TEMP 36.2; O2SAT 99; BMI 41.3
[2025-04-09 09:53] VITALS: BP 122/70
== END 2025-04-09 10:45 | disposition home or self-care (01) ==
LOC: HO.HMCH 09:21
PROVIDERS: PCP Internal Medicine; Visit Provider Internal Medicine
DX: I10 Essential (primary) hypertension (principal); E78.00 Pure hypercholesterolemia, unspecified; E66.01 Morbid (severe) obesity due to excess calories; Z68.31 Body mass index [BMI] 31.0-31.9, adult; M85.80 Other specified disorders of bone density and structure, unspecified site; K21.9 Gastro-esophageal reflux disease without esophagitis; K76.0 Fatty (change of) liver, not elsewhere classified; D64.9 Anemia, unspecified; M53.3 Sacrococcygeal disorders, not elsewhere classified; J45.909 Unspecified asthma, uncomplicated; M79.89 Other specified soft tissue disorders; G47.10 Hypersomnia, unspecified

== ENCOUNTER → 2025-04-09 09:20 | Outpatient (BNVA) | payer MEDICARE, OTHER, SELFPAY | PROVIDERS: PCP Internal Medicine; Visit Provider Internal Medicine | DX: I10 Essential (primary) hypertension (principal); E78.00 Pure hypercholesterolemia, unspecified; M85.80 Other specified disorders of bone density and structure, unspecified site; E66.01 Morbid (severe) obesity due to excess calories; K21.9 Gastro-esophageal reflux disease without esophagitis; K76.0 Fatty (change of) liver, not elsewhere classified; M53.3 Sacrococcygeal disorders, not elsewhere classified; D64.9 Anemia, unspecified; J45.909 Unspecified asthma, uncomplicated; M79.89 Other specified soft tissue disorders; G47.10 Hypersomnia, unspecified; Z13.31 Encounter for screening for depression | CPT/HCPCS: 96127; 99212 ==

== ENCOUNTER 2025-04-11 09:13 | Outpatient (REF) | payer MEDICARE, OTHER, SELFPAY ==
[2025-04-11 09:52] LABS: MANUAL DIFF FLAG NO
--- OUTSIDE RECORDS SUMMARY | 2025-04-11 10:12 | XMS_ITS | Patient Health Record ---
Author Organization [facility] Address [address] [place] [address] Care Team Providers Care Customer Advocacy Manager Name Role Phone Julio Keen MD Primary Care Provider Cheko Putnam [phone] Reason For Referral No Information Medications Medication SIG (Take, Route, Frequency, Duration) Notes Start Date End Date Status Ibuprofen 200 MG Tablet 1 tablet with food or milk as needed Orally Three times a day Takes 4-6 daily Active Probiotic 1 Capsule 1 Orally QD Active Atenolol 25 MG Tablet 1 tablet Orally tw ice a day Active Simvastatin 20 MG Tablet 1 tablet in the evening Orally Once a day Active Aspir-81 81 MG Tablet Delayed Release 1 tablet Orally Once a day; Duration: 30 day(s) Active Losartan Potassium 25 MG Tablet 1 tablet Orally Once a day; Duration: 30 day(s) Active Omeprazole 20 MG Capsule Delayed Release 1 capsule Orally Once a day Active Multi Vitamin/Minerals 1 Tablet 1 Orally QD Active Immunizations Vaccine Route Administration Date Status Comme nts Influenza Unknown 09/16/2018 Refused Social History Social History Additional Details Category Social Info Options Details Miscellaneous: Marital status: 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 Section Notes: Nonsmoker; no sig alcohol Nonsmoker; no sig alcohol Problems Problem Type SNOMED Code ICD Code Onset Dates Problem Status W/U Status Risk Notes Problem Epigastric pain (60810677) Epigastric abdominal pain (R10.13) Active confirmed Problem Left upper quadrant pain (324259315) LUQ abdominal pain (R10.12) Active confirmed Plan Of Treatment Pending Test Test Name Order Date CT PELVIS W&WO CONTRAST 12/13/2014 Insurance Providers Payer Name Payer Address Payer Phone Subscriber Number Group Number Insured Name Patient Relationship to Insured Coverage Start Date Coverage End Date MEDICARE OF [place] [address] [place] [address] [id number] EVE YOUNG Self - patient is the insured [facility] [employer] [address] [place] [address] [id number] YOUNG Self - patient is the insured Medical (General) History Medical History History ICD Code HTN Denies CO,DM,CVA,Lung disease,renal dise ase H.pylori-EGD in 08/2013 with [...]
--- OUTSIDE RECORDS SUMMARY | 2025-04-11 10:12 | XMS_ITS | Clinical Summary ---
Author Organization [facility] Address [address] [facility] [address] [place] [id number] Phone Care Team Providers Care Journeyman Apprentice Electricians Name Role Phone Omari Ruiz MD Primary Care Provider Allergies No known active allergies Immunizations Immunization Administration Dates Next Due Influenza High-Dose Trivalen t Preservative Free IM 02/14/2015 Pneumococcal, Unspecified Formulation (Deferred: Patient Decision - 00) Social History Tobacco Use Types Packs/Day Years Used Date Smoking Tobacco: Never Education Answer Date Recorded Are you interested in more education? Not on tiffanie e 08/21/2022 Are you concerned about learning? Not on file 08/21/2022 No 08/21/2022 No 08/21/2022 Digital Access Answer Date Recorded No 09/21/2022 No 09/21/2022 No 09/21/2022 Reliable internet access at home? Not on file 09/21/2022 Device with a working camera? Not on file Comments Unknown Sex and Gender Information Value Date Recorded Sex Assigned at Not on file Legal Sex Female 1:57 PM EDT Gender Identity Not on file Sexual Orientation Not on file Last Filed Vital Signs Vital Sign Reading Time Taken Comments Blood Pressure - - Pulse - - Temperature - - Respiratory Rate - - Oxygen Saturation - - Inhaled Oxygen Concentration - - Weight 113.4 kg (250 lb) 08/30/2014 10:11 AM EDT Height 162.6 cm (5' 4 ) 08/30/2014 10:11 AM EDT Body Mass Index 42.91 08/30/2014 10:11 AM EDT Plan of Treatment Health Maintenance Due Date Last Done Comments Adult Td,Tdap Booster 1949 LIPID PANEL 1949 DEPRESSION SCREENING 1961 SMOKING Hx and SMOKELESS TOBACCO SCREENING 1962 HEPATITIS C SCREENING 09/21/1967 COLOGUARD 1994 COLONOSCOPY 1994 COLORECTAL CANCER SCREENING 1994 FIT TEST 1994 FOBT 1994 SIGMOIDOSCOPY 1994 VIRTUAL COLONOSCOPY 1994 ZOSTER VACCINES (1 of 2) 09/21/1999 OSTEOPOROSIS SCREENING INITI AL (ONE-TIME) 2014 PNEUMOCOCCAL VACCINES (50+ years) (2 of 2 - PCV) 11/05/2019 11/04/2018 RSV VACCINE (1 - 1-dose 75+ series) 2024 INFLUENZA VACCINE (#1) 2024 1, 02/14/2015 COVID-19 VACCINE (2 - 2024-2 6 season) 2024 09/05/2021 HEPATITIS A VACCINES Aged Out No long er eligible based on patient's age to complete this topic HIB VACCINES Aged Out No longer eligi ble based on patient's age to complete this topic MENINGOCOCCAL VACCINES (ACWY) Aged Out No longer eligible based on patient's age to complete this topic MENINGOCOCCAL VACCINES (B) Aged Out N o longer eligible based on patient's age to complete this topic Medical Devices Not on file Insurance [employer] [facility] TOTAL CHOICE INDEMNITY MEDICARE PART A & B [facility] TOTAL CHOICE INDEMNITY MEDICARE PART A & B [facility] TOTAL CHOICE INDEMNITY MEDICARE PART A & B [facility] TOTAL CHOICE INDEMNITY MEDICARE PART A & B [facility] TOTAL CHOICE INDEMNITY MEDICARE PART A & [facility] TOTAL CHOICE INDEMNITY MEDICARE PART A & [facility] TOTAL CHOICE INDEMNITY MEDICARE PART A & B [facility] TOTAL CHOICE INDEMNITY MEDICARE PART A & B [facility] TOTAL CHOICE INDEMNITY MEDICARE PART A & B Care Teams Journeyman Apprentice Electricians Relationship Specialty Start Date End Date Omari Ruiz MD [address] [place] [address] Drive [address] [place] [address] PCP - General 10/24/13 Additional Source Comments The information contained in this document represents components of the legal health record. It is not the complete legal health record.[facility]
--- OUTSIDE RECORDS SUMMARY | 2025-04-11 10:13 | XMS_ITS | Clinical Summary ---
Author Organization [facility] ity Address [address] [place] [address] Care Team Providers Care Campground Caretaker Name Role Phone Unavailable Primary Care Provider Unavailabl e Social History Tobacco Use Types Packs/Day Years Used Date Smoking Tobacco: Never Assessed Comments Unknown Sex and Gender Information Value Date Recorded Sex Assigned at Not on file Legal Sex Female 1:11 PM EST Gender Identity Not on file Sexual Orientation Not on file Plan of Treatment Health Maintenance Due Date Last Done Comments DTaP,Tdap,and Td Vaccines (1 - Tdap) 1968 Pneumococcal Vaccine: 50+ Ye ars (1 of 1 - PCV) 09/21/1999 Zoster Vaccines (1 of 2) 09/21/1999 Depression Screening 04/26/2024 RSV Immunization Adult Patie nts (1 - 1-dose 75+ series) 2024 COVID-19 Vaccine ( - 2024-2 6 season) 2024 Influenza Vaccine (#1) 2024 HIB Vaccines Aged Out No longer [...]
[2025-04-11 11:00] LABS: Hematocrit 42.0 % (37.0-47.0); Hemoglobin 13.1 g/dl (12.0-16.0); Imm Gran Abs Auto 0.06 X10*3/uL (0.00-0.03); Imm Gran Pct Auto 0.9 % (0.0-0.4); Lymphocytes Absolute Auto 1.7 X10*3/uL (1.2-4.9); Mean Corpuscular HGB Conc 31.2 g/dl (31.0-35.0); Mean Corpuscular Hemoglobin 28.8 pg (27.0-33.0); Mean Corpuscular Volume 92.3 fL (80.0-98.0); NRBC Abs Auto 0.000 X10*3/uL (0.0-0.012); NRBC Pct Auto 0.0 /100WBC (0.0-0.2); Platelet Count 335 X10*3/uL (160-400); Red Blood Count 4.55 X10*6/uL (4.20-5.50); White Blood Count 6.7 X10*3/uL (4.8-10.8)
[2025-04-11 11:05] LABS: D Dimer High Sensitivity < 150 NG/ML
[2025-04-11 12:36] LABS: NT Pro B Type Natriuretic Pept 247.3 pg/mL (<300)
== END 2025-04-11 09:14 | disposition home or self-care (01) ==
LOC: HO.LAB 09:13
PROVIDERS: PCP Internal Medicine; Visit Provider Internal Medicine
DX: M79.89 Other specified soft tissue disorders (principal)
CPT/HCPCS: 36415; 83880; 85025; 85379

== ENCOUNTER → 2025-04-16 08:49 | Outpatient (REF) | payer MEDICARE, OTHER, SELFPAY ==
--- OUTSIDE RECORDS SUMMARY | 2025-04-16 09:20 | XMS_ITS | Clinical Summary ---
Author Organization [facility] Address [email or web address] [facility] [address] [place] [address] Phone Care Team Providers Care Allied Health Teacher Name Role Phone Omari Ruiz MD Primary [...] topic Medical Devices Not on file Insurance Aviate [facility] TOTAL CHOICE INDEMNITY MEDICARE PART A & B [facility] TOTAL CHOICE INDEMNITY MEDICARE PART A & B [facility] TOTAL CHOICE INDEMNITY MEDICARE PART A & B [facility] TOTAL CHOICE INDEMNITY MEDICARE PART A & B [facility] TOTAL CHOICE INDEMNITY MEDICARE PART A & [facility] TOTAL CHOICE INDEMNITY MEDICARE PART A & [facility] TOTAL CHOICE INDEMNITY MEDICARE PART A & B [facility] TOTAL CHOICE INDEMNITY MEDICARE PART A & B [facility] TOTAL CHOICE INDEMNITY MEDICARE PART A & B Care Teams Allied Health Teacher Relationship Specialty Start Date End Date Omari Ruiz MD [address] [place] [address] Drive [address] [place] [address] PCP - General 10/24/13 Additional Source Comments The information contained in this document represents components of the legal health record. It is not the complete legal health record.[facility]
--- OUTSIDE RECORDS SUMMARY | 2025-04-16 09:20 | XMS_ITS | Clinical Summary ---
Author Organization [facility] ity Address [address] [place] [address] Care Team Providers Care Erector Operator Name Role Phone Unavailable Primary Care [...]
--- OUTSIDE RECORDS SUMMARY | 2025-04-16 09:20 | XMS_ITS | Patient Health Record ---
Author Organization [facility] Address [address] [place] [address] Care Team Providers Care Manager Home Improvement Name Role Phone Julio Keen MD Primary Care Provider Cheko Putnam [phone] Reason For Referral No Information Medications Medication [...] W/U Status Risk Notes Problem Epigastric pain (07433351) Epigastric abdominal pain (R10.13) Active confirmed Problem Left upper quadrant pain (338120786) LUQ abdominal pain (R10.12) Active confirmed Plan Of Treatment Pending Test Test Name Order Date CT PELVIS W&WO CONTRAST 12/13/2014 Insurance Providers Payer Name Payer Address Payer Phone Subscriber Number Group Number Insured Name Patient Relationship to Insured Coverage Start Date Coverage End Date MEDICARE OF [place] [address] [place] [address] [id number] EVE YOUNG Self - patient is the insured ON LICENSE OF [facility] INDEMNITY [address] [place] [address] [id number] EVE YOUNG Self - patient is the insured Medical (General) History Medical History History ICD Code HTN Denies IA,DM,CVA,Lung disease,renal dise ase H.pylori-EGD in 08/2013 with [...]
== END ==
LOC: HO.SL 08:49
PROVIDERS: Visit Provider Internal Medicine
DX: G47.10 Hypersomnia, unspecified (principal)
CPT/HCPCS: 95806

== ENCOUNTER → 2025-04-16 09:05 | Outpatient (BNV) | payer MEDICARE, OTHER, SELFPAY | PROVIDERS: Visit Provider Psychiatry & Neurology Neurology | DX: G47.33 Obstructive sleep apnea (adult) (pediatric) (principal) | CPT/HCPCS: 95806 ==